=== PATIENT | female | born 1950 | race Caucasian/White ===

== ENCOUNTER 2016-08-02 16:57 | Emergency (ER) | payer MEDICARE, MEDICAID ==
[~2016-08-02] VITALS: Ht 165.1 cm; Wt 90.7 kg
[2016-08-02 17:20] LABS: URINE BILIRUBIN - DIPSTICK NEGATIVE (NEG); URINE BLOOD TRACE-INTACT (NEG)
--- NOTE | 2016-08-02 17:38 | Emergency Room Report ---
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 N Clinical Suspician of Infection? N Mental Status: 1 - Regular (Normal Baseline) Sepsis Risk:Low Sepsis Risk Have you (or family members/close friends) recently traveled outside the [place]? N If Yes, where/when: Have you had exposure to infectious disease within the past month? N TB? Other? Specify: Patient had fasting bloodwork today ordered by [facility] in [place] and received a call today that her sodium was low and to go to the closest ER. She has chronic fatigue but no v/d and no acute weakness. She has IDDM and ate today after her blood was drawn. No complaints currently. ALLERGIES Coded Allergies: atorvastatin (From LIPITOR) (Mild, ACHEY 08/02/16) History Medical History General CAD? No Angina: No RI: No Hypertension? Yes Hyperlipidemia? Yes CHF? No DVT? No PE? No COPD? No Asthma? No Anemia? No GERD? No Gastric ulcers? No GI Bleed? No Hernia? No Thyroid Problems? No Hypothyroidism? No CVA? No Seizures? No Diabetes? Yes Insulin Dependent: No Insulin Pump: No Home FSBS? Yes Renal Insuffiency? No End Stage Renal Disease? No UTI? No Stones? No BPH? No GB Disease: No Nephritic Syndrome? No Asplenia? No Hepatitis? No Sickle Cell Disease? No Arthritis? No Migraines? No Cataracts? No Glaucoma? No MRSA? No HIV? No TB? No Anxiety? No Depression? No Cancer? No More? No Immunization Hx DT/Tetanus 1-4 Years Ago Surgical Hx Previous Surgery?Y TUBAL Social History Smoking Hx Smoker: Never Smoker Tobacco: No Alcohol Alcohol: No Review of Systems All Other Systems Reviewed and Negative Psychiatric/Neurological denies no symptoms reported Physical Exam Vital Signs Vital Signs Date Time Temp Pulse Resp B/P Pulse O2 O2 Flow FiO2 Ox Delivery Rate 08/02 1702 98.6 78 16 163/85 98 General Appearance normal appearance, WD/WN, no apparent distress Eye Exam - bilateral eye normal exam, bilateral eye PERRL, bilateral eye EOMI Neck normal inspection, non-tender, supple, full range of motion Respiratory Status Yes: trachea midline, chest symmetrical, non tender chest. No: respiratory distress, tender on palpation, use of accessory muscles, pain on inspiration, pain on expiration, productive cough, non productive cough. Lung Sounds bilateral: normal breath sounds, lungs clear. Cardiovascular normal exam, regular rate/rhythm, no peripheral edema, no gallop, no JVD, no murmur, no rub, normal peripheral pulses Gastrointestinal normal bowel sounds, normal exam, non tender, soft, no organomegaly, no pulsatile mass, no guarding, no rebound Extremities no pedal edema Neurologic alert, normal exam, no motor/sensory deficits, oriented x 3 (no tremor speech clear) Skin intact, normal color, warm/dry Medical Decision Making LABS/Meds/Orders Pt receiving controlled substance in ED? No Results/Orders Laboratory Tests 08/02/16 1730: Sodium 142, Potassium 3.7, Chloride 105, Carbon Dioxide 24, BUN 32 H, Creatinine 1.5 H, Estimated Creat Clear 53, Estimated GFR (MDRD) 35 L, Glucose 135 H, Calcium 8.9, Total Bilirubin 0.3, AST 20, ALT 41, Alkaline Phosphatase 76, Total Protein 6.7, Albumin 3.3 L, Globulin 3.4 H, Albumin/Globulin Ratio 1.0 L, WBC 16.4 H, RBC 4.50, Hgb 13.6, Hct 41.7, MCV 92.6, RDW 14.0, Plt Count 160, MPV 7.5, Gran % 24.7 L, Gran # 4.1, Total Counted Pending, Lymphocytes % 70.6 H, Monocytes % 2.6, Eosinophils % 1.6, Basophils % 0.5, Neutrophils Pending, Lymphocytes (Manual) Pending, Lymphocytes # 11.6 H, Monocytes # 0.4, Eosinophils # 0.3, Basophils # 0.1, Platelet Estimate Pending, PUBS MCHC 32.7, MCH 30.3 08/02/16 1715: Urine Color YELLOW, Urine Appearance SL CLOUDY, Urine pH 6.0, Ur Specific [place] 1.020, Urine Protein 2+ H, Urine Ketones NEGATIVE, Urine Blood TRACE- INTACT, Urine Nitrate NEGATIVE, Urine Bilirubin NEGATIVE, Urine Urobilinogen 0.2 , Ur Leukocyte Esterase TRACE H, Urine RBC OCC, Urine WBC 5-10, Ur Squamous Epith Cells 5-10, Urine Bacteria 2+, Hyaline Casts 3-5, Urine Glucose NEGATIVE Current Medication Orders Sig/Goyo Start time Last Medication Dose Route Stop Time Status Admin Sodium Chloride 10 ML PRN PRN 08/02 171 AC IV 08/03 171 Orders Procedure Date/time Status ELECTROCARDIOGRAM REQUEST 08/02 1746 Active DIFFERENTIAL-WBC 08/02 1730 Active CULTURE, URINE 08/02 171 Active IV SALINE LOCK 08/02 171 Active URINALYSIS/COMPLETE 08/03 1711 Complete CBC WITH AUTO DIFF 08/03 1711 Active CHEM 12 PROFILE 08/03 1711 Complete Progress ED Progress Notes Date 08/02/16 Time 1836 Comment Na level normal, 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 No intervention indicated at this time. Departure Departure Time of Disposition 1836 Disposition DC Home or Self Care(routine) Clinical Impression Primary Impression: History of chronic kidney disease Condition STABLE Referrals KIP JAVIER (Family) Additional Instructions See [facility] or Dr. Javier for any follow up. Sodium 142 at our lab. (normal) Discharge Counseling Counseled pt/family regarding diagnosis, test results, home care, follow up needs ED Critical Care Critical Care No at 1839
--- OUTSIDE RECORDS SUMMARY | 2016-08-02 17:53 | External Medical Summary Rpt ---
Author Author , Organization [employer] Address Unknown Phone Unavailable Care Team Providers Care Marine Designer Name Role Phone MICHAEL EVANS MICHAEL Unavailable Unavailable MICHAEL FARMER Unavailable Unavailable KIP FLORES, Unavailable Unavailable KIP RODRIGUEZ J, Unavailable Unavailable Akira NGUYEN [facility], Unavailable Unavailable [facility], Unavailable Unavailable [facility] Unavailable Unavailable MEDICAL GROUP, [facility] BEITING CLA, BEITING Unavailable Unavailable CLA [employer] [facility], Unavailable Unavailable INC, [employer], Unavailable Unavailable INC, [employer] [facility] Unavailable Unavailable [facility], [facility] Unavailable Unavailable [facility], [facility] Unavailable [facility]available [facility], [facility] RUPALI LUCITA, RUPALI Unavailable Unavailable LUCITA ALEX SHA, ALEX Unavailable Unavailable SHA [facility], Unavailable Unavailable [facility] IOANA SHANTA, Unavailable Unavailable IOANA SHANTA DEGNORE LIS, DEGNORE Unavailable Unavailable LIS LATANYA RAMIREZ JASBIR Unavailable Unavailable JACKELYN JAM, JACKELYN Unavailable Unavailable JAM JACKELYN JAM, JACKELYN Unavailable Unavailable JAM JACKELYN AND MICHAEL, Unavailable Unavailable PSC, [facility], PSC ESTEBANW THO, Unavailable Unavailable ESTEBANW KOBI ORANTES, Unavailable Unavailable KOBI MILAN ITALIA RHO, ITALIA Unavailable Unavailable RHO [facility] Unavailable Unavailable INC, [facility] EVA SYE, EVA Unavailable Unavailable SYE ORTIZ JASBIR ORTIZ Unavailable Unavailable JASBIR NEWMAN III EDISON, Unavailable Unavailable PATY III EDISON [facility] Unavailable Unavailable [facility], [facility] Unavailable Unavailable & HAND, [facility] Unavailable Unavailable & HAND, [facility] Unavailable Unavailable ASSOCIAT, [facility] MINNIE FLYNN, Unavailable Unavailable MINNIE FLYNN KIELAR Unavailable Unavailable GERALDO ANG ESTRELLA, Unavailable Unavailable ANG ESTRELLA STEVE, KOCHU, Unavailable Unavailable [facility], Unavailable Unavailable [facility], Unavailable Unavailable [facility] & Unavailable Unavailable [facility]ICAL SUPP, [facility] & Unavailable Unavailable [facility]ICAL [facility]PP, [facility] Unavailable Unavailable LABORATO, [facility] Unavailable Unavailable LABORATO, [facility] Unavailable Unavailable LABORATORY, [facility] Unavailable Unavailable [facility], [facility] Unavailable Unavailable [facility] [employer] [facility] MATCHESBHARATA PITA, Unavailable Unavailable [facility]WALA [facility] Unavailable Unavailable OF [place], [facility] Unavailable Unavailable PSC, [facility] P[facility] Unavailable Unavailable PSC, [facility]SC [facility] Unavailable Unavailable INCORPORAT, [facility] Unavailable Unavailable INCORPORAT, [facility] HOLLINS, HOLLINS Unavailable Unavailable HOLLINS LISSETTE, HOLLINS Unavailable Unavailable LISSETTE [id number], Unavailable Unavailable [id number] SPRAGUE, SPRAGUE Unavailable Unavailable SPRAGUE AGUSTINA, SPRAGUE Unavailable Unavailable AGUSTINA [facility] Unavailable Unavailable PENG, [facility] PENG [facility] Unavailable Unavailable CLINIC P, [facility] P WAESPE GERALDO, WAESPE Unavailable Unavailable GERALDO [facility] Unavailable Unavailable #493, [facility] Unavailable Unavailable #493, [facility] Unavailable [facility]available #591, [facility] Unavailable Unavailable #591, [facility] Unavailable Unavailable INC, [facility] Unavailable Unavailable INC, [facility] JUNI MAT, JUNI MAT Unavailable Unavailable Purpose Continuity of Care Document - 02-24-2007 through 2016 Problems Code Diagnosis DOS Provider Status E1021 TYPE 1 05-27-2016 [facility] DIABETES PURCHASE MELLITUS CLINIC P W/DIABETIC NEPHROPATHY E1022 TYPE 1 05-27-2016 [facility] DIABETES PURCHASE MELLITUS CLINIC P W/DIAB CHRON KIDNEY DZ E1039 TYPE 1 DIAB 05-27-2016 THE NEW MELLITUS PURCHASE W/OTH DIAB CLINIC P OPHTHALMIC COMP E1065 TYPE 1 05-27-2016 THE NEW DIABETES PURCHASE MELLITUS CLINIC P WITH HYPERGLYCEM IA E669 OBESITY 05-27-2016 THE NEW UNSPECIFIED [facility] P E785 HYPERLIPIDE 05-27-2016 THE NEW PHYLLIS PURCHASE UNSPECIFIED CLINIC P I10 ESSENTIAL 05-27-2016 THE NEW PRIMARY PURCHASE HYPERTENSIO CLINIC P N R809 PROTEINURIA 05-25-2016 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 [place] WITHOUT COMPLICATIO NS N189 CHRONIC 05-10-2016 [facility] DISEASE OF [place] UNSPECIFIED E109 TYPE 1 05-05-2016 [facility] DI[facility]ETES & MELLITUS MEDICAL WITHOUT SUPP COMPLICATIO NS E10.21 TYPE 1 04-27-2016 DIABETES MELLITUS WITH DIABETIC NEPHROPATHY E10.39 TYPE 1 04-27-2016 DIABETES MELLITUS WITH OTHER DIABETIC OPHTHALMIC COMPLICATIO N E78.5 HYPERLIPIDE 04-27-2016 PHYLLIS, UNSPECIFIED I12.9 HYPERTENSIV 04-27-2016 E CHRONIC KIDNEY DISEASE WITH STAGE 1 THROUGH STAGE 4 CHRONIC KIDNEY DISEASE, OR UNSPECIFIED CHRONIC KIDNEY DISEASE N18.9 CHRONIC 04-27-2016 KIDNEY DISEASE, UNSPECIFIED R80.9 PROTEINURIA 04-26-2016 , UNSPECIFIED I129 HYPERTENSIV 04-26-2016 [facility] CKD [facility] W/STAGE 1-4 HOSPITAL CKD OR UNS CKD N3001 ACUTE 02-10-2016 JACKELYN AND CYSTITIS MICHAEL, WITH PSC HEMATURIA R350 FREQUENCY 02-10-2016 JACKELYN AND OF MICHAEL, MICTURITION PSC J0140 ACUTE 01-21-2016 [facility] S MEDICAL UNSPECIFIED GROUP E1040 TYPE 1 01-01-2016 THE NEW DIABETES PURCHASE MELLITUS CLINIC P W/DIAB NEUROPATHY UNS Z23 ENCOUNTER 12-04-2015 [facility] IMMUN[facility]591 N J069 ACUTE UPPER 11-10-2015 JACKELYN AND MICHAEL, RESPIRATORY PSC INFECTION UNSPECIFIED J302 OTHER 11-10-2015 JACKELYN AND SEASONAL MICHAEL, ALLERGIC PSC RHINITIS N390 URINARY 10-21-2015 [facility] INFECTION INCORPORAT SITE NOT SPECIFIED E1340 OTHER SPEC 10-17-2015 [facility] W/DIABETIC INC NEUROPATHY UNSPECIFIED D519 VITAMIN B12 09-29-2015 [facility] UNSPECIFIED E1142 TYPE 2 09-29-2015 MOBILE DIABETES [facility] 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[facility] W/DIAB POLYNEUROPA THY E1042 TYPE 1 04-30-2015 THE NEW DIABETES PURCHASE MELLITUS CLINIC P W/DIAB POLYNEUROPA THY N183 CHRONIC 02-10-2015 [facility] DISEASE OF [place] STAGE 3 MODERATE O11820 OTHER 11-25-2014 [facility] [place] TENOSYNOVIT IS RT ANKLE & FOOT 84001 TENOSYNOVIT 11-13-2014 [facility] IS OF FOOT BRACING, AND ANKLE INC 36198 PLANTAR 11-13-2014 [place] [facility] FIBROMATOSI ASSOCIAT S 4011 ESSENTIAL 11-11-2014 JACKELYN AND HYPERTPRESTON RODRIGUEZ, N, BENIGN PSC 19364 PAIN IN 11-11-2014 [facility] [place] [facility], RADIOLOGY ANKLE AND FOOT 7242 LUMBAGO 11-11-2014 IVELISSE, PSC 7295 PAIN IN 11-11-2014 [facility] SOFT [facility] TISSUES OF LIMB 59383 SWELLING OF 11-11-2014 [facility] [place] LIMB [facility] 7840 HEADACHE 11-11-2014 IVELISSE, PSC 9597 INJURY 11-11-2014 JACKELYN AND OTHER&UNSPE MICHAEL, CIFIED KNEE PSC LEG ANKLE&FOOT 86044 DIAB 11-06-2014 JACKELYN AND W/RENAL MICHAEL, MANIFESTS PSC TYPE I [JUV TYPE] UNCNTRL 5990 URINARY 11-06-2014 JACKELYN AND TRACT MICHAEL, INFECTION PSC SITE NOT SPECIFIED 58300 DIAB 10-24-2014 THE NEW W/RENAL PURCHASE MANIFESTS CLINIC P TYPE I [JUV] NOT UNCNTRL 91692 DIAB 10-24-2014 THE NEW W/OPHTH PURCHASE MANIFESTS CLINIC P TYPE I [JUV] NOT UNCNTRL 65251 BACKGROUND 10-24-2014 THE NEW DIABETIC PURCHASE RETINOPATHY CLINIC P 5853 CHRONIC 10-24-2014 THE NEW KIDNEY PURCHASE DISEASE CLINIC P STAGE III (MODERATE) 4019 UNSPECIFIED 10-07-2014 [facility] HYPERTENSIO OF [place] N 7910 PROTEINURIA 10-07-2014 [facility] [place] 41970 DIAB W/O 09-30-2014 [facility] COMP TYPE I MEDICAL [JUV] NOT STATED UNCNTRL 04581 HTN CKD UNS 09-30-2014 MOBILE W/CKD [facility] STAGE I HOSPITAL THRU STAGE IV/UNS 5859 CHRONIC 09-30-2014 MOBI[facility] KIDNEY [facility] DISEASE HOSPITAL UNSPECIFIED 52796 DIAB W/O 09-17-2014 [facility] COMP TYPE [facility] II/UNS NOT INC STATED UNCNTRL 99278 DIAB 07-11-2014 THE NEW W/NEURO PURCHASE MANIFESTS CLINIC P TYPE I [JUV TYPE] UNCNTRL 3572 POLYNEUROPA 07-11-2014 THE NEW THY IN PURCHASE DIABETES CLINIC P 05597 NEPHRITIS&N 07-11-2014 THE NEW EPHROPATHY- PURCHASE [place] [address] MIGRAINE 05-27-2014 NEPHROLOGY UNSP W/O ASSOCIATES INTRACT W/O OF [place] STATUS MIGRAINOSUS 5849 ACUTE 05-27-2014 [facility] FAILURE OF [place] UNSPECIFIED 81358 DIAB W/O 04-24-2014 [facility] COMP TYPE I HOSPITAL [JUV TYPE] UNCNTRL 2724 OTHER AND 04-24-2014 [facility] HYPERLIPIDE PHYLLSI 69887 DIAB 03-13-2014 THE NEW W/OPHTH PURCHASE MANIFESTS CLINIC P TYPE I [JUV TYPE] UNCNTRL 55424 NUCLEAR 10-12-2013 [facility] 3674 PRESBYOPIA 10-12-2013 [facility] 66679 APHAKIA 10-12-2013 [facility] 91381 DIAB W/O 08-13-2013 PURCHASE MENTION CLINIC COMP TYPE [facility]OR[facility] II/UNS TYPE UNCNTRL 3669 UNSPECIFIED 08-02-2013 [facility] CATARACT [facility] PENG V5867 LONG-TERM 08-02-2013 [facility] USE OF [facility] INSULIN PENG 36887 DIAB 06-01-2013 NEW W/OPHTH PURCHASE MANIFESTS CLINIC PSC TYPE II/UNS NOT UNCNTRL 72634 NONPROLIFER 06-01-2013 [facility] ATIVE PURCHASE DIABETIC CLINIC [place]SC [place]INOP[place]Y [place]OS 66921 POSTERIOR 06-01-2013 [facility] SUBCAPSULAR PURCHASE POLAR CLINIC PSC SENILE CATARACT 56283 DERMATOCHAL 06-01-2013 [facility] ASIS [facility] PSC 24299 DIAB 11-15-2012 [place] W/NEURO ORTHOPAEDIC MANIFESTS & HAND TYPE II/UNS NOT UNCNTRL 3558 UNSPECIFIED 11-15-2012 [facility] MONONEURITI & HAND S OF LOWER LIMB 7135 ARTHROPATHY 11-15-2012 [place] ASSOC[facility]ATED [facility]OPAEDIC & HAND W/NEUROLOGI NETO DISORDERS V5883 ENCOUNTER 09-25-2012 [facility] DRUG MONITORING 7823 EDEMA 09-20-2012 [place] [place] [facility] HAND 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 2469 UNSPECIFIED 05-24-2012 [facility]3] DISORDER [facility] 34099 NEPHROTIC 01-27-2012 [facility] SYND W/OTH PURCHASE PATHAL LES CLINIC PSC DZ CLASS ELSW 93057 GEN 01-24-2012 JACKELYN JAM OSTEOARTHRO SIS INVOLVING MULTIPLE SITES 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 6259 UNSPEC 07-05-2011 [facility] SYMPTOM PURCHASE ASSOC CLINIC PSC W/FEMALE GENITAL ORGANS V7231 ROUTINE 06-23-2011 [facility] GYNECOLOGIC PURCHASE AL CLINIC PSC EXAMINATION V762 SCREENING 06-23-2011 [facility] MALIGNANT [facility] NEOPLASM OF THE CERVIX V7612 OTHER 05-04-2011 [place] SCREENING [facility]ICAL MAMMOGRAM IMAGING ASS 3670 HYPERMETROP 04-23-2011 [facility] IA [facility] PSC 4619 ACUTE 04-16-2011 MICHAEL NATHAN SINUSITIS, UNSPECIFIED 45146 URINARY 12-10-2010 MICHAEL NATHAN FREQUENCY 462 ACUTE 09-23-2010 MICHAEL NATHAN PHARYNGITIS 4659 ACUTE URIS 09-23-2010 MICHAEL NATHAN OF UNSPECIFIED SITE 2134 BENIGN 02-16-2010 [facility] [place] [facility] SCAPUL[place] G BONES UPPER LIMB 67937 CORTICAL 10-03-2009 [facility] SENILE PURCHASE CATARACT CLINIC PSC 49993 CALCANEAL 01-13-2009 [facility] [place] [facility] 5999 UNSPECIFIED 05-01-2007 MICHAEL, DISORDER KIP L OF URETHRA&URI NARY TRACT 96863 DIAB 02-27-2007 [facility]/NEURO PURCHASE MANIFESTS CLINIC PSC TYPE I [JUV] NOT UNCNTRL Allergies, Adverse Reactions, Alerts Clinical Alert Notifications Alert Diabetes: no eye exam in the last 365 days Immunization Name Date Route CVX Reacti Commen Provid Is Given on t er Refuse d IIV [facility] No VACCIN 2016 RT E PHARMA PRESER CY V FREE #591 INCREA SED AG CONTEN T IM PCV13 [facility] No VACCIN 2016 RT E FOR PHARMA INTRAM CY USCULA #591 R USE Procedures Procedure DOS Code Location Performer Comment GLUC BLD 13243 [facility] [place] GLUC MNTR 7 PURCHASE DEV CLINIC P CLEARED FDA SPEC HOME USE HEMOGLOBI 30920 THE NEW CELESTINE N 7 PURCHASE GLYCOSYLA CLINIC P SHAMAR A1C BASIC 21280 [facility] METABOLIC 7 [facility] CALCIUM TOTAL COLLECTIO 43694 [facility] V[facility] 7 [facility] VENIPUNCT URE BLD GLU A4253 CORONEL CORONEL TEST/REAG 7 DIABETES DIABETES T STRIPS & MEDICAL & MEDICAL HOME BLD SUPP SUPP GLU MON-50 LANCETS A4259 [facility] PER BOX 7 DIABETES DIABETES OF 100 & MEDICAL & MEDICAL SUPP SUPP ALBUMIN 57331 [facility] URINE 7 [facility] [place] [address] [facility] PHOSPHORU 7 [facility] INORGANIC URNLS DIP [address] HOSPITAL LET REAGENT AUTO MICROSCOP Y COLLECTIO 06970 [facility] N VENOUS 7 [facility] VENIPUNCT URE COMPREHEN 92075 [facility] SIVE [address] [place] [address] PANEL CREATININ 78350 [facility] E OTHER 7 [facility] [place] [address] [facility] FREE 7 [facility] [address] [facility] THYROID 7 [facility] NG HORMONE TSH LIPID 37253 [facility] PANEL 7 [facility] CULTURE 33438 [facility] BACTERIAL 7 [facility] QUANTTATI VE COLONY COUNT URINE BLD GLU A4253 CORONEL DAISETTA TEST/REAG 6 DIABETES DIABETES T STRIPS & MEDICAL & MEDICAL HOME BLD SUPP SUPP GLU MON-50 NORMAL A4256 CORONEL CORONEL LOW AND 6 DIABETES DIABETES HIGH & MEDICAL & MEDICAL CALIBRATO SUPP SUPP R SOLUTION/ CHIPS LANCETS A4259 CORONEL DAISETTA PER BOX 6 DIABETES DIABETES OF 100 & MEDICAL & MEDICAL SUPP SUPP HOME E0607 [facility] BLOOD 6 DIABETES DIABETES GLUCOSE & MEDICAL & MEDICAL MONITOR SUPP SUPP URNLS DIP 22366 JACKELYNJOVANI RODRIGUEZ 6 AND NATHAN STICK/RACHEL RODRIGUEZ, LET RGNT PSC NON-AUTO W/O MICRSCP IIV 42204 [facility] VACCINE 6 [facility]AC[facility] PHARMACY PRESERV #591 #591 FREE INCREASED AG CONTENT IM ADMINISTR G0009 [facility] ATION OF 6 [facility]ARMAC[facility] PNEUMOCOC #591 #591 NETO VACCINE PCV13 51395 [facility] VACCINE 6 [facility]ACY PHARMACY FOR #591 #591 INTRAMUSC ULAR USE ADMINISTR G0008 [facility] ATION OF 6 [facility]ACY PHARMACY INFLUENZA #591 #591 VIRUS VACCINE REPL JESSE A4235 [facility] LITHIUM 6 MEDICAL MEDICAL MED NECES JOANN BG MON OWN PT EA SPRING-PO A4258 [facility] WERED 6 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 FOR LANCET EACH BLD GLU A4253 [facility] TEST/REAG 6 MEDICAL MEDICAL T STRIPS HOME BLD GLU MON-50 NORMAL A4256 [facility] LOW AND 6 MEDICAL MEDICAL HIGH CALIBRATO R SOLUTION/ CHIPS LANCETS A4259 [facility] PER BOX 6 MEDICAL MEDICAL OF 100 CULTURE 98673 [facility] BCT 6 DIAGNOSTI DIAGNOSTI ISOL&PRSM CS CS PTV ID INCORPORA INCORPORA ISOLATE T T EA URINE CULTURE 48540 [facility] BACTERIAL 6 DIAGNOSTI DIAGNOSTI CS CS QUANTTATI INCORPORA INCORPORA VE COLONY T T COUNT URINE DIAB ONLY A5500 [facility] FIT CSTM 6 [facility] PREP&SPL INC INC SHOE MX DNSITY INSRT FOR DIAB A5512 [facility] ONLY MX 6 [facility] DNSITY INC INC INSRT DIR FORMD PRFAB EA CYANOCOBA 14064 [facility] JOSE [address] [place] [address] COLLECTIO 29687 [facility] VENOUS 6 [facility] VENIPUNCT URE CREATININ 92885 [facility] E OTHER 6 [facility] [place] [address] [facility] FREE [address] [place] [address] [place] [address] [facility] THYROID 6 [facility] [place] [address] [facility] PHOSPHORU 6 [facility] INORGANIC ELECTROLY 65809 [facility] TE PANEL 6 [facility] LIPID 13875 [facility] PANEL 6 [facility] HEPATIC 21295 [facility] FUNCTION 6 [facility] PROTEIN 46703 [facility] TOTAL 6 [facility] REFRACTOM ETRY URINE BLD GLU A4253 [facility] TEST/REAG 6 MEDICAL MEDICAL T STRIPS HOME BLD GLU MON-50 NORMAL A4256 [facility] LOW AND 6 MEDICAL MEDICAL HIGH CALIBRATO R SOLUTION/ CHIPS LANCETS A4259 [facility] PER BOX 6 MEDICAL MEDICAL OF 100 BLD GLU A4253 [facility] TEST/REAG 6 MEDICAL MEDICAL T STRIPS HOME BLD GLU MON-50 NORMAL A4256 [facility] LOW AND 6 MEDICAL MEDICAL HIGH CALIBRATO R SOLUTION/ CHIPS LANCETS A4259 [facility] PER BOX 6 MEDICAL MEDICAL OF 100 NORMAL A4256 [facility] LOW AND 6 MEDICAL MEDICAL HIGH CALIBRATO R SOLUTION/ CHIPS LANCETS A4259 [facility] PER BOX 6 MEDICAL MEDICAL OF 100 BLD GLU A4253 [facility] TEST/REAG 6 MEDICAL MEDICAL T STRIPS HOME BLD GLU MON-50 LIPID 45901 [facility] 6 [facility] COLLECTIO 19404 [facility] N VENOUS 6 [facility] VENIPUNCT URE COMPREHEN 37016 [facility] SIVE 6 [facility] PANEL CREATININ 06905 [facility] E OTHER 6 [facility] [place] [place] [address] MO[facility] FREE 6 [place] [address] [facility] THYROID 6 [facility] [place] [address] [facility] URINE 6 [facility] ALBUMIN 52209 [facility] UR[facility] 5 [facility] MIN QUANTIATI VE COLLECTIO 68465 [facility] N VENOUS 5 [facility] VENIPUNCT URE RENAL 09438 [facility] FUNCTION 5 [facility] URNLS DIP [address] LET REAGENT AUTO MICROSCOP Y BLD GLU A4253 [facility] TEST/REAG 5 MEDICAL MEDICAL T STRIPS HOME BLD GLU MON-50 NORMAL A4256 [facility] LOW AND 5 MEDICAL MEDICAL HIGH CALIBRATO R SOLUTION/ [facility]IPS LANCETS A4259 [facility] PER BOX 5 MEDICAL MEDICAL OF 100 REPL JESSE A4235 [facility] LITHIUM 5 MEDICAL MEDICAL MED NECES JOANN BG MON OWN PT EA SPRING-PO A4258 [facility] WERED 5 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 FOR LANCET EACH WALKING L4360 [facility] 5 BRACING, BRACING, PNEUMATC INC INC &/ VACUUM PREFAB CUSTM FIT RADEX 67267 [facility] [place] ITALIA ANKLE 5 RADIOLOGY RHO COMPLETE MINIMUM 3 VIEWS RADEX 51758 [facility] [place] ITAL[place] FOOT 5 RADIOLOGY RHO COMPLETE MINIMUM 3 VIEWS GLUC BLD 21996 JACKELYN RODRIGUEZ GLUC MNTR 5 AND NATHAN RODRIGUEZ, CLEARED PSC FDA SPEC HOME USE ALBUMIN 48599 [facility] URINE 5 [facility] MIN QUANTIATI VE URNLS DIP [address] LET REAGENT AUTO MICROSCOP Y BLOOD 96771 [facility] COUNT 5 [facility] AUTO&AUTO DIFRNTL WBC RENAL 11073 [facility] FUNCTION 5 [facility] BLD GLU A4253 [facility] TEST/REAG 5 MEDICAL MEDICAL T STRIPS HOME BLD GLU MON-50 NORMAL A4256 [facility] LOW AND 5 MEDICAL MEDICAL HIGH CALIBRATO R SOLUTION/ CHIPS LANCETS A4259 [facility] PER BOX 5 MEDICAL MEDICAL OF 100 FOR DIAB A5512 [facility] YATES ONLY MX 5 [facility] DNSITY INC INC INSRT DIR FORMD PRFAB EA DIAB ONLY A5500 YATESAMANDA VAUGHANAKER FIT CSTM 5 [facility] PREP&SPL INC INC SHOE MX DNSITY INSRT LANCETS A4259 [facility] PER BOX 5 MEDICAL MEDICAL OF 100 NORMAL A4256 [facility] LOW AND 5 MEDICAL MEDICAL HIGH CALIBRATO R SOLUTION/ CHIPS BLD GLU A4253 [facility] TEST/REAG 5 MEDICAL MEDICAL T STRIPS HOME BLD GLU MON-50 CREATININ 16345 [facility] E OTHER 5 [facility] COLLECTIO 16002 [facility] N VENOUS 5 [facility] VENIPUNCT URE CULTURE 71248 [facility] BACTERIAL 5 [facility] QUANTTATI VE COLONY COUNT URINE PROTEIN 76198 [facility] TUTTLE TOTAL 5 [facility] REFRACTOM ETRY URINE URNLS DIP 71746 PARAG TUTTLE 5 [facility] LET REAGENT AUTO MICROSCOP Y RENAL 64870 PARAG TUTTLE FUNCTION 5 [facility] DUP-SCAN 80128 NEPHROLOG GURVINDER ARTL LEEROY 5 Y [place] ABDL/PEL/ ASSOCIATE SCROT&/[place] [address] NEPHROLOG GURVINDER RETROPERI 5 Y [place] TONEAL ASSOCIATE REAL TIME S OF KAREN W/IMAGE COMPLETE BLOOD 36510 PARGA TUTTLE COUNT 5 [facility] SMEAR [facility] MCRSCP W/MNL DIFRNTL WBC COUNT PROTEIN 72038 [facility] TOTAL 5 [facility] XCPT [facility] REFRACTOM ETRY URINE URNLS DIP [address] [facility] HOSPITAL LET REAGENT AUTO MICROSCOP Y BLOOD 15308 [facility]3] COUNT 5 [facility] AUTOMATED RENAL 26223 [facility] FUNCTION 5 [facility] CREATININ 55528 [facility]LE [facility]3] E OTHER 5 [facility] COLLECTIO 97935 [facility] N VENOUS 5 [facility] [place] [address] [facility] THYROID 5 [facility] [place] [address] [facility] FREE 5 [facility] THYROXINE [facility] CREATININ 20739 [facility] OTHER 5 [facility] COMPREHEN 28133 [facility] SIVE 5 [facility] METABOLIC [facility] PANEL COLLECTIO 37087 [facility] N VENOUS 5 [facility] VENIPUNCT URE LIPID 46061 [facility] PANEL [address] [place] [address] ALBUMIN 20079 [facility] URINE 5 [facility] MIN QUANTIATI VE SPRING-PO A4258 ARRIVA ARRIVA WERED 5 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 FOR LANCET EACH REPL JESSE A4235 ARRIVA ARRIVA LITHIUM 5 MEDICAL MEDICAL MED NECES JOANN BG MON OWN PT EA NORMAL A4256 ARRIVA ARRIVA LOW AND 5 MEDICAL MEDICAL HIGH CALIBRATO R SOLUTION/ CHIPS BLD GLU A4253 ARRIVA ARRIVA TEST/REAG 5 MEDICAL MEDICAL T STRIPS HOME BLD GLU MON-50 LANCETS A4259 ARRIVA ARRIVA PER BOX 5 MEDICAL MEDICAL OF 100 LANCETS A4259 ARRIVA ARRIVA PER BOX 4 [facility]ICAL MEDICAL OF 100 NORMAL A4256 ARRIVA ARRIVA LOW AND 4 MEDICAL MEDICAL HIGH CALIBRATO R SOLUTION/ CHIPS BLD GLU A4253 ARRIVA ARRIVA TEST/REAG 4 MEDICAL MEDICAL T STRIPS HOME BLD GLU MON-50 LANCETS A4259 ARRIVA ARRIVA PER BOX 4 MEDICAL MEDICAL OF 100 SPRING-PO A4258 ARRIVA ARRIVA WERED 4 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 FOR LANCET EACH REPL JESSE A4235 ARRIV[facility] ARRIVA LITHIUM 4 MEDICAL MEDICAL MED NECES JOANN BG MON OWN PT EA BLD GLU A4253 [facility]IV[facility] TEST/REAG 4 MEDICAL MEDICAL T STRIPS HOME BLD GLU MON-50 NORMAL A4256 ARRIVA ARRIVA LOW AND 4 MEDICAL MEDICAL HIGH CALIBRATO R SOLUTION/ CHIPS PROGRESSI V2781 [facility] VE LENS 4 [facility]ARMACY PHARMACY PER LENS #493 #493 FRAMES V2020 [facility] PURCHASES 4 PHARMACY PHARMACY #493 #493 SPHERE V2200 [facility] BIFOCL 4 PHARMACY PHARMACY PLANO TO #493 #493 PLUS/JACOB S 4.00D PER LENS BIFOCL V2203 [facility] PLANO +/- 4 PHARMACY PHARMACY 4.00D #493 #493 SPHER 0.12-2.00 D CYL-EA DIAB ONLY A5500 YATES YATES FIT CSTM 4 [facility] PREP&SPL INC INC SHOE MX DNSITY INSRT FOR DIAB A5512 YATES YATES ONLY MX 4 [facility] DNSITY INC INC INSRT DIR FORMD PRFAB EA HEMOGLOBI 28295 [place] N 4 [facility] SHAMAR A1C PSC GLUC BLD 26009 [place] GLUC MNTR 4 [facility] DEV CLINIC CLEARED [facility] FDA SPEC HOME USE BLOOD 88624 [facility] COUNT 4 CLINIC CLINIC COMPLETE [place] [address] [facility] THYROID 4 CLINIC CLINIC STIMULATI LABORAT[place] [address] [facility] FREE 4 CLINIC CLINIC THYROXINE LABORATO LABORATO COLLECTIO 96506 [facility] N VENOUS 4 CLINIC CLINIC BLOOD LABORATO LABORATO VENIPUNCT URE PROTEIN 88609 [facility] TOTAL 4 [facility] REFRACTOM ETRY URINE LIPID 58164 [facility] PANEL 4 [facility] CREATININ 66244 [facility] E OTHER 4 [facility] COMPREHEN 78249 [facility] SIVE 4 [facility] PANEL COLLECTIO 78495 [facility] N VENOUS 4 [facility] VENIPUNCT URE INJECTION J2[address] [place] MIDAZOLAM PENG PENG HCL PER 1 MG CATARACT 62505 [facility] REMOVAL [address] [place] [address] [place] INSERTION PENG PENG OF LENS INJECTION J01[address] ADRENALIN PENG PENG EPINEPHRI NE 0.1 MG ANESTHESI 14814 FREDERICK ORTIZ A EYE 4 LTH JASBIR LENS ANESTHESI SURGERY A PSC INJECTION J2001 [place] [address] [place] LIDOCAINE PENG PENG HCL INTRAVENO US INFUS 10 MG POSTERIOR V2632 [facility] CHAMBER 4 [place] INTRAOCUL PENG PENG AR LENS OPH BMTRY 86864 ANUSHA PELAEZ [facility] US 4 EYE ECHOGRAPY INSTITUTE A-SCAN IO LENS PWR NETO NORMAL A4256 ARRIVA ARRIVA LOW AND 4 MEDICAL MEDICAL HIGH CALIBRATO R SOLUTION/ CHIPS LANCETS A4259 ARRIVA ARRIVA PER BOX 4 MEDICAL MEDICAL OF 100 BLD GLU A4253 ARRIVA ARRIVA TEST/REAG 4 MEDICAL MEDICAL T STRIPS HOME BLD GLU MON-50 ANESTHESI 59760 FREDERICK ORTIZ A EYE 4 LTH JASBIR LENS ANESTHESI SURGERY A PSC INJECTION J01[address] [place] ADRENALIN PENG PENG EPINEPHRI NE 0.1 MG INJECTION J2001 [address] [place] LIDOCAINE PENG PENG HCL INTRAVENO US INFUS 10 MG POSTERIOR V2632 [facility] CHAMBER [address] [facility] INTRAOCUL PENG PENG AR LENS INJECTION J2250 [facility] [address] [facility] MIDAZOLAM PENG PENG HCL PER 1 MG CATARACT 55298 ANUSHA PELAEZ JASBIR REMOVAL 4 EYE INSERTION INSTITUTE OF LENS OPH BMTRY 99565 ANUSHA PELAEZ JASBIR US 4 EYE ECHOGRAPY INSTITUTE A-SCAN IO LENS PWR NETO OPH BMTRY 13315 [place] US 4 [facility] ECHOGRAPY CLINIC A-SCAN PSC IO LENS PWR NETO DETERMINA 27040 [place] TION 4 [facility] REFRACTIV CLINIC E STATE PSC OPHTH 20931 [facility] MEDICAL 4 [facility] XM&EVAL CLINIC COMPRHNSV PSC ESTAB PT 1/> REPL JESSE A4235 ARRIVA ARRIVA LITHIUM 4 MEDICAL MEDICAL MED NECES JOANN BG MON OWN PT EA SPRING-PO A4258 ARRIVA ARRIVA WERED 4 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 SHAMAR A1C PSC GLUC BLD 97918 [facility] GLUC MNTR 3 [facility] DEV CLINIC CLEARED PSC FDA SPEC HOME USE NORMAL A4256 ARRIVA ARRIVA LOW AND 3 MEDICAL MEDICAL HIGH CALIBRATO R SOLUTION/ CHIPS BLD GLU A4253 ARRIVA ARRIVA TEST/REAG 3 MEDICAL MEDICAL T STRIPS HOME BLD GLU MON-50 LANCETS A4259 ARRIVA ARRIVA PER BOX 3 MEDICAL MEDICAL OF 100 FOR DIAB A5512 TRUDY YATES ONLY MX 3 [facility] DNSITY INC INC INSRT DIR FORMD PRFAB EA DIAB ONLY A5500 YATES YATES FIT CSTM 3 [facility] PREP&SPL INC INC SHOE MX DNSITY INSRT RADIOLOGI 26979 [place] DEGNORE C 3 ORTHOPAED LIS EXAMINATI IC & HAND ON FOOT 2 VIEWS LANCETS A4259 ARRIVA ARRIVA PER BOX 3 MEDICAL MEDICAL OF 100 BLD GLU A4253 ARRIVA ARRIVA TEST/REAG 3 MEDICAL MEDICAL T STRIPS HOME BLD GLU MON-50 BLD GLU A4253 [facility] TEST/REAG 3 PHARM PHARM T STRIPS #3914 #3914 HOME BLD GLU MON-50 COLLECTIO 25285 [facility] N VENOUS 3 CLINIC CLINIC BLOOD LABORATO LABORATO VENIPUNCT URE GLUC BLD 71317 [place] GLUC MNTR 3 PURCHASE TH DEV CLINIC CLEARED PSC FDA SPEC HOME USE HEMOGLOBI 79385 [place] N 3 [facility] GLYCOSYLA CLINIC SHAMAR A1C PSC BASIC 67812 [facility] METABOLIC 3 CLINIC CLINIC PANEL LABORATO LABORATO CALCIUM TOTAL TRANSFERA 31070 [facility] SE 3 [facility] AMINO ALT SGPT COLLECTIO 05406 [facility] N VENOUS 3 [facility] VENIPUNCT URE LIPID 46582 [facility] PANEL 3 [facility] RADIOLOGI 55594 [place] DEGNORE C 3 ORTHOPAED LIS EXAMINATI IC & HAND ON FOOT 2 VIEWS FOR DIAB A5513 THE THE ONLY MX 3 [facility]ALTH[facility] HEALTHY DNSITY FOOT FOOT INSRT CENTER CENTER CSTM MOLD CSTM EA [place]-PO A4258 [facility] WERED 3 [facility] DEVICE E LLC E LLC FOR LANCET EACH HOME E0607 [facility] BLOOD 3 [facility] GLUCOSE E LLC E LLC MONITOR LANCETS A4259 [facility] PER BOX 3 [facility] OF 100 E LLC E LLC BLD GLU A4253 [facility] TEST/REAG 3 [facility] HEALTHCAR T STRIPS E LLC E LLC HOME BLD GLU MON-50 WALKING L4386 [facility] BOOT 3 ORTHOPAED ORTHOPAED NON-PNEUM IC & HAND IC & HAND ATIC PREFAB CUSTOM FIT RADIOLOGI 21467 [place] DEGNORE C 3 ORTHOPAED LIS EXAMINATI IC & HAND ON FOOT 2 VIEWS MRI LOWER 34421 [facility] [place] PATY EXTREM 3 RADIOLOGY III EDISON OTH/THN JT W/O CONTR MATRL RADEX 25652 [facility] [place] JUNI MAT FOOT 3 RADIOLOGY COMPLETE MINIMUM 3 VIEWS GONADOTRO 62197 [facility] PIN 3 CLINIC CLINIC FOLLICLE LABORATO LABORATO STIMULATI NG HORMONE PROTEIN 97359 [facility] TOTAL 3 CLINIC CLINIC XCPT LABORATO LABORATO REFRACTOM ETRY URINE LIPID 65539 [facility] PANEL 3 CLINIC CLINIC LABORATO LABORATO COLLECTIO 64603 [facility] N VENOUS 3 CLINIC CLINIC BLOOD [place]OR[place] [address] [facility] FREE 3 CLINIC CLINIC THYROXINE LABORATO LABORATO CREATININ 23822 [facility] E OTHER 3 CLINIC CLINIC SOURCE LABORATO LABORATO LIPID 71579 [facility] 3 [facility] [address] [facility] THYROID 3 [facility] NG HORMONE TSH CREATININ 22960 [facility] E OTHER 3 [facility] COMPREHEN 93859 [facility] SIVE 3 [facility] PANEL COLLECTIO 89063 [facility] N VENOUS 3 [facility] VENIPUNCT URE PROTEIN 98301 [facility] TOTAL 3 [facility] REFRA[facility] ETRY URINE LANCETS A4259 [facility] PER BOX 3 MEDICAL MEDICAL OF 100 SUPPLY SUPPLY INC. INC. BLD GLU A4253 [facility] TEST/REAG 3 MEDICAL MEDICAL T STRIPS SUPPLY SUPPLY HOME BLD INC. INC. 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 INC. LANCET EACH BLD GLU A4253 [facility] TEST/REAG 2 MEDICAL MEDICAL T STRIPS SUPPLY SUPPLY HOME BLD INC. INC. GLU MON-50 BLD GLU A4253 [facility] TEST/REAG 2 MEDICAL MEDICAL T STRIPS SUPPLY SUPPLY HOME BLD INC. INC. GLU MON-50 LANCETS A4259 [facility]ERTY PER BOX 2 MEDICAL MEDICAL OF 100 SUPPLY SUPPLY INC. INC. CREATINE 63810 [facility] KINASE 2 [facility] HEPATIC 90482 [facility] FUNCTION 2 [facility] LIPID 66238 [facility] PANEL [address] [place] [address] LIPID 06324 [facility] PANEL [address] [place] [address] COMPREHEN 21236 [facility] SIVE 2 [facility] PANEL COLLECTIO 91299 [facility] N VENOUS 2 [facility] VENIPUNCT URE NORMAL A4256 [facility] LOW AND 2 MEDICAL MEDICAL HIGH SUPPLY SUPPLY CALIBRATO INC. INC. R SOLUTION/ CHIPS LANCETS A4259 [facility] LIBERTY PER BOX 2 MEDICAL MEDICAL OF 100 SUPPLY SUPPLY INC. INC. BLD GLU A4253 [facility] TEST/REAG 2 MEDICAL MEDICAL T STRIPS SUPPLY SUPPLY HOME BLD INC. INC. GLU MON-50 REPL JESSE A4235 [facility] LITHIUM 2 MEDICAL MEDICAL MED NECES SUPPLY SUPPLY JOANN 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 2 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 SUPPLY FOR LANCET EACH BLD GLU A4253 [facility] TEST/REAG 2 MEDICAL MEDICAL T STRIPS SUPPLY SUPPLY HOME BLD GLU MON-50 COMPUTER- 32469 [place] IOANA AIDED 2 MEDICAL SHANTA DETECTION IMAGING ASS SCREENING MAMMOGRAP HY SCREENING G0202 [facility] 2 MEDICAL MEDICAL MAMMOGRAP IMAGING IMAGING HY MORENO ASS ASS INCL CAD WHEN PERFORMD OPHTH 90413 [facility] [place] MEDICAL 2 [facility] XM&EVAL CLINIC COMPRHNSV PSC ESTAB PT 1/> DETERMINA 53419 [facility] TI 2 [facility] REFRACTIV CLINIC E STATE PSC INJECTION J0696 MICHAEL RODRIGUEZ 2 NATHAN [place] NE SODIUM PER [address] [place] [address] [facility] THYROID 2 [facility] NG HORMONE TSH COMPREHEN 57586 [facility] SIVE 2 [facility] PANEL COLLECTIO 03495 [facility] N VENOUS 2 [facility] VENIPUNCT URE LIPID 32062 [facility] PANEL [address] [place] [address] BLD GLU A4253 [facility] TEST/REAG 2 MEDICAL MEDICAL T STRIPS SUPPLY SUPPLY HOME BLD GLU MON-50 CREATININ 19726 [facility] E OTHER 2 CLINIC CLINIC SOURCE LABORATO LABORATO URNLS DIP 63334 [facility] 2 CLINIC CLINIC STICK/TAB LABORATO LABORATO LET REAGENT AUTO MICROSCOP Y PROTEIN 10249 [facility] TOTAL 2 CLINIC CLINIC XCPT LABORATO LABORATO REFRACTOM ETRY URINE URNLS DIP 00879 MICHAEL RODRIGUEZ 1 NATHAN NATHAN STICK/TAB LET RGNT NON-AUTO W/O MICRSCP BLD GLU A4253 [facility] TEST/REAG 1 MEDICAL MEDICAL T STRIPS SUPPLY SUPPLY HOME BLD GLU MON-50 OPHTH 62343 [facility] 1 [facility] XM&EVAL CLINIC COMPRHNSV PSC ESTAB PT 1/> BLD GLU A4253 [facility] TEST/REAG 1 MEDICAL MEDICAL T STRIPS SUPPLY SUPPLY HOME BLD GLU MON-50 NORMAL A4256 [facility] LOW AND 1 MEDICAL MEDICAL HIGH SUPPLY SUPPLY CALIBRATO R SOLUTION/ CHIPS LANCETS A4259 [facility] PER BOX 1 MEDICAL MEDICAL OF 100 SUPPLY SUPPLY REPL JESSE A4235 [facility] LITHIUM 1 MEDICAL MEDICAL MED NECES SUPPLY SUPPLY JOANN BG MON OWN PT EA NORMAL A4256 [facility] LOW AND 1 MEDICAL MEDICAL HIGH SUPPLY SUPPLY CALIBRATO R SOLUTION/ CHIPS BLD GLU A4253 [facility] TEST/REAG 1 MEDICAL MEDICAL T STRIPS SUPPLY SUPPLY HOME BLD GLU MON-50 OPHTH 48664 [facility] 1 [facility]&EVAL CLINIC COMPRHNSV PSC ESTAB PT 1/> LANCETS A4259 [facility] PER BOX 1 [facility] MEDICAL OF 100 SUPPLY SUPPLY BLD GLU A4253 [facility] TEST/REAG 1 MEDICAL MEDICAL T STRIPS SUPPLY SUPPLY HOME BLD GLU MON-50 [place] [address] [facility] SURG 1 [facility] INC PATHOLOGY GROSS&QUITA ROSCOPIC EXAM SCREENING G0202 DAVID HERNANDEZ 0 [facility] MAMMOGRAP INC INC HY MORENO INCL CAD WHEN PERFORMD COMPUTER- 68734 DAVID HERNANDEZ AIDED 0 [facility] DETECTION INC INC SCREENING MAMMOGRAP HY LANCETS A4259 [facility] PER BOX 0 MEDICAL MEDICAL OF 100 SUPPLY SUPPLY BLD GLU A4253 [facility] TEST/REAG 0 MEDICAL MEDICAL T STRIPS SUPPLY SUPPLY HOME BLD GLU MON-50 PROTEIN 89008 [place] TOTAL 0 CLINIC CLINIC XCPT LABORATO LABORATO REFRACTOM ETRY URINE HEMOGLOBI 72095 [place] N 0 PURCHASE THO GLYCOSYLA CLINIC SHAMAR A1C PSC GLUC BLD 80057 [place] GLUC MNTR 0 PURCHASE THO DEV CLINIC CLEARED [facility] FDA SPEC HOME USE CREATININ 48306 [facility] E OTHER 0 CLINIC CLINIC SOURCE LABORATO LABORATO LIPID 43626 [facility] 0 [facility] [address] [facility] THYROID 0 [facility] NG HORMONE TSH COMPREHEN 45853 [facility] SIVE 0 [facility] PANEL COLLECTIO 25294 [facility] N VENOUS 0 [facility] VENIPUNCT URE OPHTH 79133 [facility] [place] [facility]ICAL 0 PURCHASE GERALDO XM&EVAL CLINIC COMPRHNSV PSC ESTAB PT 1/> LANCETS A4259 [facility] PER BOX 0 MEDICAL MEDICAL OF 100 SUPPLY SUPPLY BLD GLU A4253 [facility] TEST/REAG 0 MEDICAL MEDICAL T STRIPS SUPPLY SUPPLY HOME BLD GLU MON-50 GLUC BLD 79157 [place], GLUC MNTR 0 PURCHASE [facility] CLEARED PSC FDA SPEC HOME USE HEMOGLOBI 61582 [place], N 0 PURCHASE [place]YCOSYLA CLINIC SHAMAR A1C PSC LIPID 14197 [facility] PANEL 0 [facility] COMPREHEN 09387 [facility] SIVE 0 [facility] PANEL COLLECTIO 50727 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 SIVE 0 [facility] PANEL COLLECTIO 07715 [facility] N VENOUS 0 [facility] VENIPUNCT URE OPHTH 34694 [place] SANCHEZ 0 PURCHASE ANG Gradne XM&EVAL CLINIC COMPRHNSV PSC ESTAB PT 1/> LANCETS A4259 [facility] PER BOX 0 MEDICAL MEDICAL OF 100 SUPPLY SUPPLY BLD GLU A4253 [facility] TEST/REAG 0 MEDICAL MEDICAL T STRIPS SUPPLY SUPPLY HOME BLD GLU MON-50 RADEX 15123 [facility] [place], FOOT 9 RADIOLOGY J COMPLETE MINIMUM 3 VIEWS COLLECTIO 73209 [facility] N VENOUS 9 [facility] VENIPUNCT URE LIPID 32322 [facility] PANEL 9 [facility] HEPATIC 51743 [facility] FUNCTION 9 [facility] BLD GLU A4253 [facility] TEST/REAG 9 MEDICAL MEDICAL T STRIPS SUPPLY SUPPLY HOME BLD GLU MON-50 LANCETS A4259 [facility] PER BOX 9 MEDICAL MEDICAL OF 100 SUPPLY SUPPLY NORMAL A4256 [facility] LOW AND 9 MEDICAL MEDICAL HIGH SUPPLY SUPPLY CALIBRATO R SOLUTION/ CHIPS LIPID 21339 [facility] PANEL 9 CLINIC CLINIC LABORATOR LABORATOR Y Y HEMOGLOBI 21655 MARLENI MILAN N 9 [facility] SHAMAR A1C PSC GLUC BLD 14123 MARLENI MILAN, GLUC MNTR 9 [facility] DEV CLINIC CLEARED [facility] [place] [address] [facility] TH[facility]RO[facility] 9 CLINIC CLINIC STIMULATI LABORATOR LABORATOR NG Y Y HORMONE TSH COLLECTIO 36115 [facility] N VENOUS 9 CLINIC CLINIC BLOOD LABORATOR LABORATOR VENIPUNCT Y Y URE CREATININ 28635 [facility] E OTHER 9 CLINIC CLINIC SOURCE LABORATOR LABORATOR Y Y COMPREHEN 53945 [facility] SIVE 9 CLINIC CLINIC METABOLIC LABORATOR LABORATOR PANEL Y Y PROTEIN 05677 [facility] TOTAL 9 CLINIC CLINIC XCPT LABORATOR LABORATOR REFRACTOM Y Y ETRY URINE BLD GLU A4253 [facility] TEST/REAG 9 MEDICAL MEDICAL T STRIPS SUPPLY SUPPLY HOME BLD GLU MON-50 COMPREHEN 77176 [facility] SIVE 9 CLINIC CLINIC METABOLIC LABORATOR LABORATOR PANEL Y Y COLLECTIO 48521 [facility] N VENOUS 9 CLINIC CLINIC BLOOD LABORATOR LABORATOR VENIPUNCT Y Y URE BILIRUBIN 30652 [facility] DIRECT 9 CLINIC CLINIC LABORATOR LABORATOR Y Y COLLECTIO 45365 [facility] N VENOUS 9 CLINIC CLINIC BLOOD LABORATOR LABORATOR VENIPUNCT Y Y URE COMPREHEN 73062 [facility] SIVE 9 CLINIC CLINIC METABOLIC LABORATOR LABORATOR PANEL Y Y LIPID 29725 [facility] PANEL 9 CLINIC CLINIC LABORATOR LABORATOR Y Y FUNDUS 65893 MARLENI ESTRELLA PHOTOBIA 9 [facility] W/INTERPR [facility] ETATION & REPORT COMPUTER- 99476 DAVID HERNANDEZ AIDED 8 [facility] DETECTION INC INC SCREENING MAMMOGRAP HY SCREENING 30847 DAVID HERNANDEZ 8 [facility] MAMMOGRAP INC INC HY BILATERAL COLLECTIO 43209 [facility]IN[facility] CLIN[facility] BLOOD LABORATOR LABORATOR VENIPUNCT Y Y URE BASIC 27855 [facility] METABOLIC 8 CLINIC CLINIC PANEL LABORATOR LABORATOR CALCIUM Y Y TOTAL BLD GLU A4253 [facility] TEST/REAG 8 MEDICAL MEDICAL T STRIPS SUPPLY SUPPLY HOME BLD GLU MON-50 BLD GLU A4253 [facility] TEST/REAG 8 MEDICAL MEDICAL T STRIPS SUPPLY SUPPLY HOME BLD GLU MON-50 SPRING-PO A4258 [facility] WERED 8 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 SUPPLY FOR LANCET EACH LANCETS A4259 [facility] PER BOX 8 MEDICAL MEDICAL OF 100 SUPPLY SUPPLY NORMAL A4256 [facility] LOW AND 8 MEDICAL MEDICAL HIGH SUPPLY SUPPLY CALIBRATO R SOLUTION/ CHIPS LANCETS A4259 [facility] PER BOX 8 MEDICAL MEDICAL OF 100 SUPPLY SUPPLY BLD GLU A4253 [facility] TEST/REAG 8 MEDICAL MEDICAL T STRIPS SUPPLY SUPPLY HOME BLD GLU MON-50 Encounters Encounter Start End Date Code Location Performer Type Date OFFICE 51639 [facility] 7 PURCHASE T VISIT CLINIC P 40 MINUTES [facility] [address] [facility] T OFFICE 90894 NE[facility] 7 Y T VISIT ASSOCIATE 25 S OF KAREN MINUTES [facility] [address] [facility] T OFFICE 35786 JACKELYN MICHAEL OUTPATIEN 6 6 AND NATHAN T VISIT MICHAEL, 10 PSC MINUTES OFFICE 29695 YAZIDI [facility] OUTPATI 6 6 [facility]ALTH [facility] T VISIT MEDICAL 15 GROUP MINUTES OFFICE [id number] [facility] OUTPATIEN 6 6 [place] [facility] T [facility] CLIN[facility] P 40 MINUTES OFFICE 49830 JACKELYN MICHAEL OUTPATIEN 6 6 AND NATHAN T VISIT MICHAEL, 15 PSC MINUTES OFFICE 22923 JACKELYN MICHAEL OUTPATIEN 6 6 AND NATHAN T VISIT MICHAEL, 10 PSC MINUTES OFFICE 63929 NEPHROLOG HOLLINS OUTPATIEN 6 6 Y LISSETTE T VISIT ASSOCIATE 25 S OF KAREN MINUTES [facility] - [address] [facility] T OFFICE [id number] [facility] [place] [facility] 6 6 [facility] P 40 MINUT[facility] OFFICE [id number] [facility] 6 6 [facility] P 40 MINUTES [facility] [place] [facility] [address] [facility] T OFFICE 92836 NEPHROLOG RUPALI OUTPATIEN 5 5 Y LUCITA T VISIT ASSOCIATE 25 S OF KAREN MINUTES [facility] [place] [facility] [address] [facility] OFF[facility] 40364 [facility] 5 ORTHOPEDI GERALDO T NEW 30 C MINUTES [facility] 00617 [facility] ORTHOPEDI GERALDO T NEW 30 C MINUTES ASSOCIAT OFFICE 84309 JACKELYN MICHAEL OUTPATIEN 5 5 AND NATHAN T VISIT MICHAEL, 25 PSC MINUTES [facility] [address] [facility] T OFFICE 67924 JACKELYN MICHAEL OUTPATIEN 5 5 AND NATHAN T VISIT MICHAEL, 15 PSC MINUTES OFFICE 19433 [facility] [place] [facility] P 40 MINUTES OFFICE 63705 NEPHROLOG VEA OUTPATIEN 5 5 Y SYE T VISIT ASSOCIATE 25 S OF KAREN MINUTES [facility] [place] [facility] [address] [facility] T OFFICE 11378 [facility] [place] OUT[facility]IEN 5 5 [place] [facility] T VISIT CLINIC P 40 MINUTES OFFICE 40877 NEPHROLOG EVA OUTPATIEN 5 5 Y SYE T VISIT ASSOCIATE 25 S OF KAREN [facility] [place] - [address] [facility] T OFFICE 40464 NEPHROLOG HOLLINS OUTPATIEN 5 5 Y LISSETTE T NEW 60 ASSOCIATE MINUTES S OF [facility] [place] - 5 5 [facility] [place] - [address] [facility] T OFF[facility] 09425 [facility] OUTPATIEN 5 5 [facility] T VISIT CLINIC P 40 MINUTES OFFICE 90081 [facility] OUTPATIEN 4 4 [facility] T VIS[facility] CLINIC 25 PSC MINUTES HOSPITAL [facility] OTHER 4 4 [facility] - 4 4 [facility] - 4 4 [facility] T OFFICE 73434 [facility] OUTPATIEN 4 4 [facility] MINUT[facility] OFFICE 21459 [facility] 3 PURCHASE THO T VISIT CLINIC 25 PSC MINUTES OFFICE 62701 [place] [facility] OUT[facility] 3 3 ORTHOPAED LIS T VISIT IC & HAND 15 MINUTES OFFICE 79467 [facility] OUTPAT[facility]EN 3 3 [facility] T VISIT CLINIC 25 PSC MINUTES [facility] [place] [facility] [address] [facility] T OFFICE 99672 [place] [facility] OUT[facility] 3 3 ORTHOPAED LIS T VISIT IC & HAND 15 MINUTES [facility] [place] [facility] [address] [facility] T OFF[facility] 01487 MICHAEL [facility]HA[facility] 3 3 NATHAN NATHAN T VISIT 25 MINUTES [facility] [place] - 3 3 [facility] [place] - [address] [facility] T OFFICE [id number] [facility] OUTPATIEN 2 2 ELOISE DURANT T VISIT CLINIC 25 PSC MINUTES OFFICE [id number] JACKELYN HAYDEN OUTPATIEN 2 2 ELIAZAR PEREA T VISIT 15 MINUTES [facility] [place] 2 2 [facility] [place] [facility] [address] [facility] T OFF[facility] 72079 [place] [facility] 2 3 ORTHOPAED LIS T [facility] IC & HAND MINUTES [facility] 2 2 [facility] [place] T OFFICE 98090 [facility] 2 NATHAN NATHAN T VISIT 15 MINUTES [facility] [place] [facility] [address] [facility] T OFFICE [id number] MICHAEL MICHAEL OUTPATIEN 1 1 NATHAN NATHAN T VISIT 15 MINUTES OFFICE 23523 MICHAEL MICHAEL OUTPATIEN 1 1 NATHAN NATHAN T VISIT 10 MINUTES [facility]OSP[facility] - 0 0 [facility] T OFFICE 79994 [facility] EMERGENC[facility] 0 0 [facility] T VISIT CLINIC 25 PSC MINUTES [facility] [place] [facility] [address] [facility] T OFF[facility] 84757 [facility] 0 0 ELOISE MONZON T [facility]ISIT CLINIC 25 PSC MINUTES [facility] [place] [facility] [address] [facility] T OFF[facility] 45665 [facility] 0 0 ELOISE Champion T VISIT CLINIC 25 PSC MINUTES [facility] [place] [facility] [address] [facility] T OFF[facility] 25552 [facility] 9 9 ELOISE Champion T VISIT CLINIC 25 PSC MINUTES [facility] [place] [facility] [address] [facility] T OFF[facility] 22780 ARMAND BAIRES 9 9 ELOISE Champion T VISIT CLINIC 25 PSC MINUTES OFFICE 63810 MARLEN[facility]IAM [facility] 9 [facility] 15 PSC MINUTES OFFICE 16978 [facility] 9 ELOISE Champion T [facility]IS[facility]IC 25 PSC MINUTES OFFICE 81161 [facility] 15 PSC MINUTES [facility] DAV[facility] - 8 8 [facility] T OFF[facility] 70761 [facility] 8 8 KIP Isaac T VISIT 10 MINUTES OFFICE 29134 [facility] 8 8 ELOISE ELOISE T VISIT CLINIC CLINIC 25 PSC PSC MINUTES OFFICE 13749 [facility] 8 MINNIE HARTMAN T VISIT M M 10 MINUTES
--- OUTSIDE RECORDS SUMMARY | 2016-08-02 17:53 | External Medical Summary Rpt ---
Author Author , Organization [employer] Address Unknown Phone Unavailable Care Team Providers Care Clinical Document Improvement Educator Name Role Phone MICHAEL EVANS MICHAEL Unavailable Unavailable MICHAEL FARMER Unavailable Unavailable KIP FLORES, Unavailable Unavailable KIP RODRIGUEZ J, Unavailable Unavailable Akira NGUYEN [facility], Unavailable Unavailable [facility], Unavailable Unavailable [facility] Unavailable Unavailable [facility] GROUP, [facility] BEITING CLA, BEITING Unavailable Unavailable CLA [employer], Unavailable Unavailable INC, [employer], Unavailable Unavailable INC, [employer] [facility] Unavailable Unavailable [facility], [facility] Unavailable [facility]available [facility], [facility] Unavailable [facility]available [facility], [facility] RUPALI LUCITA, RUPALI Unavailable Unavailable LUCITA ALEX [...] III EDISON, Unavailable Unavailable PATY III EDISON [facility] Unavailable Unavailable [facility], [facility] Unavailable Unavailable & HAND, [facility] Unavailable Unavailable & HAND, [facility] Unavailable Unavailable ASSOCIAT, [facility] MINNIE FLYNN, Unavailable Unavailable MINNIE FLYNN KIELAR Unavailable Unavailable GERALDO ANG ESTRELLA, Unavailable Unavailable ANG ESTRELLA STEVE, KOCHU, Unavailable Unavailable NICOLÁS [facility], Unavailable Unavailable [facility], Unavailable Unavailable [facility] & Unavailable Unavailable MEDICAL SUPP, [facility] & Unavailable Unavailable MEDICAL SUPP, [facility] Unavailable Unavailable LABORATO, [facility] Unavailable Unavailable LABORATO, [facility] Unavailable Unavailable LABORATORY, [facility] Unavailable Unavailable [facility], [facility] Unavailable Unavailable [facility] MATCHESBHARATA PITA, Unavailable Unavailable [facility] Unavailable Unavailable OF [place], [facility] Unavailable Unavailable PSC, [facility] Unavailable Unavailable PSC, [facility] Unavailable Unavailable INCORPORAT, [facility] Unavailable Unavailable INCORPORAT, [facility] HOLLINS, HOLLINS Unavailable Unavailable HOLLINS LISSETTE, HOLLINS Unavailable Unavailable LISSETTE [id number], Unavailable Unavailable [id number] SPRAGUE, SPRAGUE Unavailable Unavailable SPRAGUE AGUSTINA, SPRAGUE Unavailable Unavailable AGUSTINA [facility] Unavailable [facility]available PENG, [facility] Un[facility] Unavailable [facility]available CLINIC P, [facility] P WAESPE GERALDO, WAESPE Unavailable Unavailable [...] Provider Status E1021 TYPE 1 05-27-2016 [facility] DIABETES [facility] P W/DIABETIC NEPHROPATHY E1022 TYPE 1 05-27-2016 [facility] DI[facility]ETES [facility] P W/DIAB CHRON KIDNEY DZ E1039 TYPE 1 DIAB 05-27-2016 THE NEW MELLITUS [place] W/OTH DIAB CLINIC P OPHTHALMIC COMP E1065 TYPE 1 05-27-2016 THE NEW DIABETES [place] P [place]YCEM [place] E669 OBESITY 05-27-2016 [facility] E785 HYPERLIPIDE 05-27-2016 THE NEW PHYLLIS [place] UNSPECIFIED CLINIC P I10 ESSENTIAL 05-27-2016 THE NEW PRIMARY [place] HYPERTENSIO CLINIC P N R809 PROTEINURIA 05-25-2016 [facility]119 TYPE 2 05-10-2016 NEPHROLOGY DIABETES [...] PROTEINURIA 04-26-2016 , UNSPECIFIED I129 HYPERTENSIV 04-26-2016 [facility] CKD [facility] W/STAGE 1-4 HOSPITAL CKD OR UNS CKD N3001 ACUTE 02-10-2016 JACKELYN AND CYSTITIS MICHAEL, WITH PSC HEMATURIA R350 FREQUENCY 02-10-2016 JACKELYN AND OF MICHAEL, MICTURITION PSC J0140 ACUTE 01-21-2016 [facility] MEDICAL UNSPECIFIED GROUP E1040 TYPE 1 01-01-2016 THE NEW DIABETES [facility] P W/DIAB NEUROPATHY UNS Z23 [...] [facility] UNSPECIFIED E1142 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 THY E1042 TYPE 1 04-30-2015 THE NEW DIABETES [facility] P W/DIAB POLYNEUROPA THY N183 CHRONIC 02-10-2015 [facility] DISEASE OF [place] STAGE 3 MODERATE Z48422 OTHER 11-25-2014 [facility] TENOSYNOVIT IS RT ANKLE & FOOT 63714 TENOSYNOVIT 11-13-2014 [facility] IS OF FOOT BRACING, AND ANKLE INC 01521 PLANTAR 11-13-2014 [place] [facility] FIBROMATOSI ASSOCIAT S 4011 ESSENTIAL 11-11-2014 JACKELYN AND HYPERTPRESTON RODRIGUEZ, N, BENIGN PSC 68946 PAIN IN 11-11-2014 [facility] [place] JOINT, RADIOLOGY ANKLE AND FOOT 7242 LUMBAGO 11-11-2014 IVELISSE, PSC 7295 PAIN IN 11-11-2014 [facility] [place] SOFT RADIOLOGY TISSUES OF LIMB 66026 SWELLING OF 11-11-2014 [facility] [place] LIMB RADIOLOGY 7840 HEADACHE 11-11-2014 IVELISSE, PSC 9597 INJURY 11-11-2014 JACKELYN AND OTHER&UNSPE MICHAEL, CIFIED KNEE PSC LEG ANKLE&FOOT 98726 DIAB 11-06-2014 JACKELYN AND W/RENAL MICHAEL, MANIFESTS PSC TYPE I [JUV TYPE] UNCNTRL 5990 URINARY 11-06-2014 JACKELYN AND TRACT MICHAEL, INFECTION PSC SITE NOT SPECIFIED 47379 DIAB 10-24-2014 THE NEW W/RENAL [place] MANIFESTS CLINIC P TYPE I [JUV] NOT UNCNTRL 20637 DIAB 10-24-2014 THE NEW W/OPHTH [place] MANIFESTS CLINIC P TYPE I [JUV] NOT UNCNTRL 65595 BACKGROUND 10-24-2014 THE NEW DIABETIC [place] RETINOPATHY CLINIC P 5853 CHRONIC 10-24-2014 THE NEW KIDNEY [facility] DISEASE CLINIC P STAGE III (MODERATE) 4019 UNSPECIFIED 10-07-2014 [facility] HYPERTENSIO OF [place] N 7910 PROTEINURIA 10-07-2014 [facility] [place] 29779 DIAB W/O 09-30-2014 [facility] COMP TYPE I MEDICAL [JUV] NOT STATED UNCNTRL 88260 HTN CKD UNS 09-30-2014 SCITUATE W/CKD [facility] STAGE I HOSPITAL THRU STAGE IV/UNS 5859 CHRONIC 09-30-2014 S[facility] KIDNEY [facility] DISEASE HOSPITAL UNSPECIFIED 26340 DIAB W/O 09-17-2014 [facility] COMP TYPE [facility] II/UNS NOT INC STATED UNCNTRL 76051 DIAB 07-11-2014 THE NEW W/NEURO [facility] MANIFESTS CLINIC P TYPE I [JUV TYPE] UNCNTRL 3572 POLYNEUROPA 07-11-2014 THE NEW THY IN [facility] DIABETES CLINIC P 62845 NEPHRITIS&N 07-11-2014 THE NEW EPHROPATHY- [place] [address] MIGRAINE 05-27-2014 NEPHROLOGY UNSP W/O ASSOCIATES INTRACT W/O OF [place] STATUS MIGRAINOSUS 5849 ACUTE 05-27-2014 [facility] FAILURE OF [place] UNSPECIFIED 18708 DIAB W/O 04-24-2014 [facility] COMP TYPE I HOSPITAL [JUV TYPE] UNCNTRL 2724 OTHER AND 04-24-2014 [facility] HYPERLIPIDE PHYLLIS 31354 DIAB 03-13-2014 THE NEW W/OPHTH [facility] MANIFESTS CLINIC P TYPE I [JUV TYPE] UNCNTRL 45251 NUCLEAR 10-12-2013 [facility] 3674 PRESBYOPIA 10-12-2013 [facility] 95749 APHAKIA 10-12-2013 [facility] 64896 DIAB W/O 08-13-2013 [facility] COMP TYPE LABOR[facility] II/UNS TYPE UNCNTRL 3669 UNSPECIFIED 08-02-2013 [facility] CATARACT [facility] PENG V5867 LONG-TERM 08-02-2013 [facility] USE OF [facility] INSULIN PENG 25564 DIAB 06-01-2013 NEW W/OPHTH [place] MANIFESTS CLINIC PSC TYPE II/UNS NOT UNCNTRL 98999 NONPROLIFER 06-01-2013 [facility] ATIVE [place] DIABETIC CLINIC [place]INOP[place]Y [place] 76716 POSTERIOR 06-01-2013 [facility] SUBCAPSULAR [place] POLAR CLINIC PSC SENILE CATARACT 24549 DERMATOCHAL 06-01-2013 [facility] ASIS [facility] PSC 20333 DIAB 11-15-2012 [place] W/NEURO ORTHOPAEDIC MANIFESTS & HAND TYPE II/UNS NOT UNCNTRL 3558 UNSPECIFIED 11-15-2012 [facility] MONONEURITI & HAND S OF LOWER LIMB 7135 ARTHROPATHY 11-15-2012 [place] [facility] & HAND W/NEUROLOGI NETO DISORDERS V5883 ENCOUNTER 09-25-2012 [facility] DRUG MONITORING 7823 EDEMA 09-20-2012 [facility] 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 6259 UNSPEC 07-05-2011 [facility] SYMPTOM [facility] PSC W/FEMALE GENITAL ORGANS V7231 ROUTINE 06-23-2011 [facility] GYNECOLOGIC [facility] AL [facility]IC PSC EXAMINATION V762 SCREENING 06-23-2011 [facility] MALIGNANT LABORATO NEOPLASM OF THE CERVIX V7612 OTHER 05-04-2011 [place] SCREENING MEDICAL MAMMOGRAM IMAGING ASS 3670 HYPERMETROP 04-23-2011 [facility] IA [facility] PSC 4619 ACUTE 04-16-2011 MICHAEL NATHAN SINUSITIS, UNSPECIFIED 98795 URINARY 12-10-2010 MICHAEL NATAHN FREQUENCY 462 ACUTE 09-23-2010 MICHAEL NATHAN PHARYNGITIS 4659 ACUTE URIS 09-23-2010 MICHAEL NATHAN OF UNSPECIFIED SITE 2134 BENIGN 02-16-2010 [facility] [place] [facility] SCAPUL[place] G BONES UPPER LIMB 86645 CORTICAL 10-03-2009 [facility] SENILE [place] CATARACT CLINIC PSC 13850 CALCANEAL 01-13-2009 [facility] [place] SPUR RADIOLOGY 5999 UNSPECIFIED 05-01-2007 MICHAEL, DISORDER KIP L OF URETHRA&URI NARY TRACT 88142 DIAB 02-27-2007 [facility]/NEURO [place] MANIFESTS CLINIC PSC TYPE I [JUV] NOT [...] DOS Code Location Performer Comment GLUC BLD 79782 THE [facility] [place] GLUC MNTR 7 [place] DEV [facility]INIC P CLEARED FDA SPEC HOME USE HEMOGLOBI 99627 THE NEW CELETSINE N 7 [facility] GLYCOSYLA CLINIC P SHAMAR A1C BASIC 31977 [facility] METABOLIC 7 [facility] CALCIUM TOTAL COLLECTIO 90920 [facility] VENOUS 7 [facility] VENIPUNCT URE BLD GLU A4253 CORONEL CORONEL TEST/REAG 7 DIABETES DIABETES T STRIPS & MEDICAL & MEDICAL HOME BLD SUPP SUPP GLU MON-50 LANCETS A4259 [facility] PER BOX 7 DIABETES DIABETES OF 100 & MEDICAL & MEDICAL SUPP SUPP ALBUMIN 08436 [facility] URINE 7 [facility] [place] [address] [facility] PHOSPHORU 7 [facility] INORGANIC URNLS DIP [address]/[facility] H[facility]PITAL LET REAGENT AUTO MICROSCOP Y COLLECTIO 26626 [facility] N VENOUS 7 [facility] VENIPUNCT URE COMPREHEN 24631 [facility] SIVE [address] [place] [address] PANEL CREATININ 44482 [facility] E OTHER 7 [facility] [place] [address] [facility] FREE 7 [facility] [place] [address] [facility] THYROID 7 [facility] NG HORMONE TSH LIPID 67327 [facility] PANEL 7 [facility] CULTURE 38981 [facility] BACTERIAL 7 [facility] QUANTTATI VE COLONY COUNT URINE BLD GLU A4253 CORONEL DOLPHIN TEST/REAG 6 DIABETES DIABETES T STRIPS & MEDICAL & MEDICAL HOME BLD SUPP SUPP GLU MON-50 NORMAL A4256 CORONEL CORONEL LOW AND 6 DIABETES DIABETES HIGH & MEDICAL & MEDICAL CALIBRATO SUPP SUPP R SOLUTION/ CHIPS LANCETS A4259 CORONEL DOLPHIN PER BOX 6 DIABETES DIABETES OF 100 & MEDICAL & MEDICAL SUPP SUPP HOME E0607 [facility] BLOOD 6 DIABETES DIABETES GLUCOSE & MEDICAL & MEDICAL MONITOR SUPP SUPP URNLS DIP 59840 JACKELYNJOVANI RODRIGUEZ 6 AND NATHAN STICK/RACHEL RODRIGUEZ, LET RGNT PSC NON-AUTO W/O MICRSCP IIV 99089 [facility] VACCINE 6 PHARMACY PHARMACY PRESERV #591 #591 FREE INCREASED AG CONTENT IM ADMINISTR G0009 [facility] ATION OF 6 [facility]ARMACY PHARMACY PNEUMOCOC #591 #591 NETO VACCINE PCV13 95616 [facility] VACCINE 6 [facility]ACY PHARMACY FOR #591 #591 INTRAMUSC ULAR USE ADMINISTR G0008 [facility] ATION OF 6 PHARMACY PHARMACY INFLUENZA #591 #591 VIRUS VACCINE REPL JESSE A4235 [facility] LITHIUM 6 MEDICAL MEDICAL MED NECES JOANN BG MON OWN PT EA SPRING-PO A4258 [facility] ARRIV[facility] WERED 6 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 FOR LANCET EACH BLD GLU A4253 [facility] AR[facility] TEST/REAG 6 MEDICAL MEDICAL T STRIPS HOME BLD GLU MON-50 NORMAL A4256 [facility] LOW AND 6 MEDICAL MEDICAL HIGH CALIBRATO R SOLUTION/ CHIPS LANCETS A4259 [facility] PER BOX 6 MEDICAL MEDICAL OF 100 CULTURE 02003 [facility] BCT 6 DIAGNOSTI DIAGNOSTI ISOL&PRSM CS CS PTV ID INCORPORA INCORPORA ISOLATE T T EA URINE CULTURE 25345 [facility] BACTERIAL 6 DIAGNOSTI DIAGNOSTI CS CS QUANTTATI INCORPORA INCORPORA VE COLONY T T COUNT URINE DIAB ONLY A5500 [facility] FIT CSTM 6 [facility] PREP&SPL INC INC SHOE MX DNSITY INSRT FOR DIAB A5512 [facility] YATES ONLY MX 6 [facility] DNSITY INC INC INSRT DIR FORMD PRFAB EA CYANOCOBA 13263 [facility] JOSE [address] [place] [address] COLLECTIO 55477 [facility] VENOUS 6 [facility] VENIPUNCT URE CREATININ 90756 [facility] E OTHER 6 [facility] [place] [address] [facility] FREE [address] [place] [address] [place] [address] [facility] THYROID 6 [facility] [place] [address] [facility] PHOSPHORU 6 [facility] INORGANIC ELECTROLY 09224 [facility] TE PANEL 6 [facility] LIPID 70408 [facility] PANEL 6 [facility] HEPATIC 88020 [facility] FUNCTION 6 [facility] PROTEIN 61635 [facility] TOTAL 6 [facility] REFRACTOM ETRY URINE BLD GLU A4253 [...] T STRIPS HOME BLD GLU MON-50 LIPID 96009 [facility] 6 [facility] COLLECTIO 76308 [facility] N [facility]ENOUS 6 [facility] VENIPUNCT URE COMPREHEN 58167 [facility] SIVE 6 [facility] PANEL CREATININ 46127 SCITUATE PARAG E OTHER 6 [place] [address] SCITUATE PARAG FREE 6 [place] [address] [facility] THYROID 6 [facility] [place] [address] [facility] URINE 6 [facility] ALBUMIN 59736 [facility] URINE 5 [facility] MIN QUANTIATI VE COLLECTIO 55083 [facility] N VENOUS 5 [facility] VENIPUNCT URE RENAL 12840 [facility] FUNCTION 5 [facility] URNLS DIP [address] LET REAGENT AUTO MICROSCOP Y BLD [...] SPRING-PO A4258 ARRIVA ARRIVA WERED 5 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 FOR LANCET EACH WALKING L4360 [facility] BOOT 5 BRACING, BRACING, PNEUMATC INC INC &/ VACUUM PREFAB CUSTM FIT RADEX 04174 [facility] [place] ITALIA ANKLE 5 RADIOLOGY RHO COMPLETE MINIMUM 3 VIEWS RADEX 14600 [facility] [place] ITALIA FOOT 5 RADIOLOGY RHO COMPLETE MINIMUM 3 VIEWS GLUC BLD 64840 JACKELYN RODRIGUEZ GLUC MNTR 5 AND NATHAN RODRIGUEZ, CLEARED PSC FDA SPEC HOME USE ALBUMIN 51401 [facility] URINE 5 [facility] MIN QUANTIATI VE URNLS DIP [address] LET REAGENT AUTO MICROSCOP Y BLOOD 75045 [facility] COUNT 5 [facility] AUTO&AUTO DIFRNTL WBC RENAL 13061 [facility] [place] FUNCTION 5 [facility] BLD GLU A4253 ARRIVA ARRIVA TEST/REAG [...] T STRIPS HOME BLD GLU MON-50 CREATININ 64513 [facility] E OTHER 5 [facility] COLLECTIO 83771 [facility] N VENOUS 5 [facility] VENIPUNCT URE CULTURE 27540 [facility] BACTERIAL 5 [facility] QUANTTATI VE COLONY COUNT URINE PROTEIN 76067 [facility] T[facility] TOTAL 5 [facility] REFRACTOM ETRY URINE URNLS DIP 70687 [facility] TUTTLE 5 [facility] LET REAGENT AUTO MICROSCOP Y RENAL 07014 [facility] [place] FUNCTION 5 [facility] DUP-SCAN 67376 NEPHROLOG GURVINDER ARTL LEEROY 5 Y [place] ABDL/PEL/ ASSOCIATE SCROT&/[place] [address] NEPHROLOG GURVINDER RETROPERI 5 Y [place] TONEAL ASSOCIATE REAL TIME S OF [place] W/IMAGE COMPLETE BLOOD 03011 [facility] [place] COUNT 5 [facility] SMEAR [facility] MCRSCP W/MNL DIFRNTL WBC COUNT PROTEIN 05810 [facility] TOTAL 5 [facility] XCPT [facility] REFRACTOM ETRY URINE URNLS DIP [address] STICK/[facility] HOSP[facility] HOSPITAL LET REAGENT AUTO MICROSCOP Y BLOOD 48158 [facility] COUNT 5 [facility] AUTOMATED RENAL 54218 [facility]ATE [facility] FUNCTION 5 [facility] CREATININ 33991 [facility] E OTHER 5 [facility] COLLECTIO 21408 [facility] N VENOUS 5 [facility] [place] [address] [facility] THYROID 5 [facility] [place] [address] [facility] FREE 5 [facility] THYROXINE [facility] CREATININ 22390 SCIT[facility]ATE [facility] OTHER 5 [facility] COMPREHEN 55137 [facility] SIVE 5 [facility] METABOLIC [facility] PANEL COLLECTIO 20337 [facility] N VENOUS 5 [facility] VENIPUNCT URE LIPID 14643 [facility] PANEL [address] [place] [address] ALBUMIN 82457 [facility] URINE 5 [facility] HOSPITAL MIN QUANTIATI VE SPRING-PO A4258 ARRIVA ARRIVA WERED 5 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 FOR LANCET EACH REPL JESSE A4235 ARRIVA [...] SPRING-PO A4258 ARRIVA ARRIVA WERED 4 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 FOR LANCET EACH REPL JESSE A4235 ARRIVA [...] INC INSRT DIR FORMD PRFAB EA HEMOGLOBI 82009 [place] N [facility] SHAMAR A1C PSC GLUC BLD 53513 [place] GLUC MNTR 4 [facility] CLEARED [facility] FDA SPEC HOME USE BLOOD 64994 [facility] COUNT 4 CLINIC CLINIC COMPLETE [place] [address] [facility] THYROID 4 CLINIC CLINIC STIMULATI [facility]OR[facility] [place] [address] [facility] FREE 4 CLINIC CLINIC THYROXINE LABORATO LABORATO COLLECTIO 05767 [facility] N VENOUS 4 CLINIC CLINIC BLOOD LABORATO LABORATO VENIPUNCT URE PROTEIN 13862 [facility] TOTAL 4 [facility] REFRACTOM ETRY URINE LIPID 02949 [facility] PANEL 4 [facility] CREATININ 76910 [facility] E OTHER 4 [facility] COMPREHEN 21963 [facility] SIVE 4 [facility] PANEL COLLECTIO 67904 [facility] N VENOUS 4 [facility] VENIPUNCT URE INJECTION [id number] [address] [facility] MIDAZOLAM PENG PENG HCL PER 1 MG CATARACT 03180 [facility] REMOVAL [address] [place] [address] [facility] INSERTION PENG PENG OF LENS INJECTION [id number] ADRENALIN PENG PENG EPINEPHRI NE 0.1 MG ANESTHESI 46677 FREDERICK ORTIZ A EYE 4 LTH JASBIR LENS ANESTHESI SURGERY A PSC INJECTION J2001 [place] [address] [place] LIDOCAINE PENG PENG HCL INTRAVENO US INFUS 10 MG POSTERIOR V2632 [facility] CHAMBER 4 [place] [place] INTRAOCUL PENG PENG AR LENS OPH BMTRY 69264 ANUSHA PELAEZ [facility] US 4 [facility] INSTITUTE A-SCAN IO LENS PWR NETO NORMAL A4256 ARRIVA ARRIVA LOW AND 4 MEDICAL MEDICAL HIGH CALIBRATO R SOLUTION/ CHIPS LANCETS A4259 ARRIVA ARRIVA PER BOX 4 MEDICAL MEDICAL OF 100 BLD GLU A4253 ARRIVA ARRIVA TEST/REAG 4 MEDICAL MEDICAL T STRIPS HOME BLD GLU MON-50 ANESTHESI 93587 FREDERICK ORTIZ A EYE 4 LTH JASBIR LENS ANESTHESI SURGERY A PSC INJECTION [id number] [place] ADRENALIN PENG PENG EPINEPHRI NE 0.1 MG INJECTION J2001 [address] [place] LIDOCAINE PENG PENG HCL INTRAVENO US INFUS 10 MG POSTERIOR V2632 [facility] CHAMBER 4 [facility] INTRAOCUL PENG PENG AR LENS INJECTION J2250 [facility] 4 [facility] MIDAZOLAM PENG PENG HCL PER 1 MG CATARACT 53360 ANUSHA PELAEZ JASBIR REMOVAL 4 EYE INSERTION [facility]STITUTE OF LENS OPH BMTRY 41157 ANUSHA PELAEZ JASBIR US 4 [facility] INSTITUTE A-SCAN IO LENS PWR NETO OPH BMTRY 01873 NEW [place] US 4 [facility] A-SCAN PSC IO LENS PWR NETO DETERMINA 87565 NEW [facility] TION 4 [facility] REFRACTIV CLINIC E STATE PSC OPHTH 05461 NEW [facility] MEDICAL 4 [facility] XM&EVAL CLINIC COMPRHNSV PSC ESTAB PT 1/> REPL JESSE A4235 ARRIVA ARRIVA LITHIUM 4 MEDICAL MEDICAL MED NECES JOANN BG MON OWN PT EA SPRING-PO A4258 ARRIVA ARRIVA WERED 4 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 FOR LANCET EACH NORMAL A4256 ARRIVA ARRIVA LOW AND 4 MEDICAL MEDICAL HIGH CALIBRATO R SOLUTION/ CHIPS BLD GLU A4253 ARRIVA ARRIVA TEST/REAG 4 MEDICAL MEDICAL T STRIPS HOME BLD GLU MON-50 LANCETS A4259 ARRIVA ARRIVA PER BOX 4 MEDICAL [facility] OF 100 HEMOGLOBI [address] [facility] N [address] [facility] [address] [facility] SHAMAR A1C PSC GLUC BLD [address] [place] GLUC MNTR 3 [facility] DEV CLINIC CLEARED PSC FDA [...] FORMD PRFAB EA DIAB ONLY A5500 YATES YTAES FIT CSTM 3 [facility] SHOE MX DNSITY INSRT RADIOLOGI 70101 [place] DEGNORE C 3 ORTHOPAED LIS EXAMINATI IC & HAND ON FOOT 2 VIEWS LANCETS A4259 ARRIVA ARRIVA PER BOX 3 MEDICAL MEDICAL OF 100 BLD GLU A4253 ARRIVA ARRIVA TEST/REAG 3 MEDICAL MEDICAL T STRIPS HOME BLD GLU MON-50 BLD GLU A4253 [facility] TEST/REAG 3 PHARM PHARM T STRIPS #[id number] #[id number] HOME BLD GLU MON-50 COLLECTIO 51997 [facility] N VENOUS 3 CLINIC CLINIC BLOOD LABORATO LABORATO VENIPUNCT URE GLUC BLD 15575 [facility] [facility] MNTR 3 [facility]UL[facility]ERRY TH DEV CLINIC CLEARED PSC FDA SPEC HOME USE HEMOGLOBI 58793 [place] N 3 [facility] GLYCOSYLA CLINIC SHAMAR A1C PSC BASIC 67242 [facility] METABOLIC 3 CLINIC CLINIC PANEL LABORATO LABORATO CALCIUM TOTAL TRANSFERA 20952 [facility] SE 3 [facility] AMINO ALT SGPT COLLECTIO 14894 [facility] N VENOUS 3 [facility] VENIPUNCT URE LIPID [address] [facility] PANEL 3 [facility] RADIOLOGI 47562 [place] C 3 ORTHOPAED LIS EXAMINATI IC & HAND ON FOOT 2 VIEWS FOR DIAB A5513 THE THE ONLY MX 3 [facility] FOOT FOOT INSRT CENTER CENTER CSTM MOLD CSTM EA CHASE-PO A4258 [place] WERED 3 [facility] HEALTHCAR [...] LLC HOME BLD GLU MON-50 WALKING L4386 [facility] BOOT 3 ORTHOPAED ORTHOPAED NON-PNEUM IC & HAND IC & HAND ATIC PREFAB CUSTOM FIT RADIOLOGI 93070 [place] C 3 ORTHOPAED LIS EXAMINATI IC & HAND ON FOOT 2 VIEWS MRI LOWER 89854 [facility] [place] PATY EXTREM 3 RADIOLOGY III EDISON OTH/THN JT W/O CONTR MATRL RADEX 76624 [facility] [place] JUNI MAT FOOT 3 RADIOLOGY COMPLETE MINIMUM 3 VIEWS GONADOTRO 00641 [facility] PIN 3 CLINIC CLIN[facility] FOLLICLE LABORATO LABORATO STIMULATI NG HORMONE PROTEIN 36064 [facility] TOTAL 3 CLINIC CLINIC XCPT LABORATO LABORATO REFRACTOM ETRY URINE LIPID 53756 [facility] PANEL 3 [facility] LABOR[facility]O COLLECTIO 34474 [facility] N VENOUS 3 [facility] BLOOD [place] [address] [facility] FREE 3 CLINIC CLINIC THYROXINE LABORATO LABORATO CREATININ 84091 [facility] E OTHER 3 [facility] SOURCE LABORATO LABORATO LIPID 38044 [facility] 3 [facility] [place] [address] [facility] THYROID 3 [facility] NG HORMONE TSH CREATININ 61383 [facility] E OTHER 3 [facility] COMPREHEN 05923 [facility] SIVE 3 [facility] PANEL COLLECTIO 01088 [facility] N VENOUS 3 [facility] VENIPUNCT URE PROTEIN 49324 [facility] TOTAL 3 [facility] RE[facility] ETRY URINE LANCETS A4259 [facility] PER BOX 3 MEDICAL MEDICAL OF 100 SUPPLY SUPPLY INC. INC. BLD GLU A4253 [facility] TEST/REAG 3 MEDICAL MEDICAL T STRIPS SUPPLY SUPPLY HOME BLD INC. INC. GLU MON-50 HEMOGLOBI 52563 MARLENI MILAN N 2 [facility] CLINIC SHAMAR A1C PSC GLUC BLD 75210 [facility] [place] GLUC MNTR 2 [facility] DEV CLINIC CLEARED PSC FDA SPEC HOME USE A4258 [facility]ERTY WERED 2 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 SUPPLY SUPPLY FOR INC. INC. LANCET EACH BLD GLU A4253 [facility]ERTY TEST/REAG 2 MEDICAL MEDICAL T STRIPS SUPPLY SUPPLY HOME BLD INC. INC. GLU MON-50 BLD GLU A4253 [facility]ERTY TEST/REAG 2 MEDICAL MEDICAL T STRIPS SUPPLY SUPPLY HOME BLD INC. INC. GLU MON-50 LANCETS A4259 [facility]ERTY PER BOX 2 [facility] MEDICAL OF 100 SUPPLY SUPPLY INC. INC. CREATINE 18174 [facility] KINASE 2 [facility] HEPATIC 97135 [facility] FUNCTION 2 [facility] LIPID 42882 [facility] PANEL [address] [place] [address] LIPID 19377 [facility] PANEL [address] [place] [address] COMPREHEN 25842 [facility] SIVE 2 [facility] PANEL COLLECTIO 73214 [facility] N VENOUS 2 [facility] VENIPUNCT URE NORMAL A4256 LIBERTY LIBERTY [...] [place] [address] NEW ALEX TRANSVAGI 2 [facility] NAL CLINIC PSC SCREEN Q0091 NEW [facility] PAP 2 [place] CLA SMEAR; CLINIC OBTAIN PSC PREP &C ONVEY TO LAB SCR G0145 [facility] CYTOPATH 2 CLINIC CLINIC CERV/VAG LABORATO LABORATO SCR AUTO&MNL RSCR PHYS CERV/VAGI G0101 NEW [facility]ING NAL 2 [place] CLA CANCER CLINIC SCR; PSC PELV&CLIN BREAST EXAM BASIC 57257 [facility] METABOLIC 2 CLINIC CLINIC PANEL LABORATO LABORATO CALCIUM TOTAL COLLECTIO 66715 [facility] N VENOUS 2 CLINIC CLINIC BLOOD LABORATO LABORATO VENIPUNCT URE SPRING-PO A4258 [facility] LIBERTY 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 2 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 SUPPLY SUPPLY FOR LANCET EACH BLD GLU A4253 [facility] LIBERTY TEST/REAG 2 MEDICAL MEDICAL T STRIPS SUPPLY SUPPLY HOME BLD GLU MON-50 COMPUTER- 58832 [place] AIDED 2 MEDICAL SHATNA DETECTION IMAGING ASS SCREENING MAMMOGRAP HY SCREENING G0202 [facility] 2 MEDICAL MEDICAL MAMMOGRAP IMAGING IMAGING HY MORENO ASS ASS INCL CAD WHEN PERFORMD OPHTH 18121 [facility] 2 [facility] XM&EVAL CLINIC COMPRHNSV PSC ESTAB PT 1/> DETERMINA 70580 NEW [facility] TI 2 [facility] REFRACTIV CLINIC E STATE PSC INJECTION J0696 MICHAEL RODRIGUEZ 2 NATHAN [place]OV[place] NE SODIUM PER [address] [place] [address] [facility] THYROID 2 [facility] NG HORMONE TSH COMPREHEN 44998 [facility] SIVE 2 [facility] PANEL COLLECTIO 63982 [facility] N VENOUS 2 [facility] VENIPUNCT URE LIPID 03723 [facility] PANEL [address] [place] [address] BLD GLU A4253 [facility] LIBERTY TEST/REAG 2 MEDICAL MEDICAL T STRIPS SUPPLY SUPPLY HOME BLD GLU MON-50 CREATININ 50813 [facility] E OTHER 2 [facility] SOURCE LABORATO LABORATO URNLS DIP 40234 [facility] 2 CLINIC CLINIC STICK/TAB LABORATO LABORATO LET REAGENT AUTO MICROSCOP Y PROTEIN 60267 [facility] TOTAL 2 CLINIC CLINIC XCPT LABORATO LABORATO REFRACTOM ETRY URINE URNLS DIP 07034 MICHAEL RODRIGUEZ 1 NATHAN NATHAN STICK/TAB LET RGNT NON-AUTO W/O MICRSCP BLD GLU A4253 [facility]ERTY TEST/REAG 1 MEDICAL MEDICAL T STRIPS SUPPLY SUPPLY HOME BLD GLU MON-50 OPHTH 78354 [facility] 1 [facility] XM&EVAL CLINIC COMPRHNSV PSC ESTAB PT 1/> [...] SUPPLY SUPPLY HOME BLD GLU MON-50 OPHTH 03089 [facility] 1 [facility]&EVAL CLINIC COMPRHNSV PSC ESTAB PT 1/> LANCETS A4259 [facility] LIBERTY PER BOX 1 [facility] MEDICAL OF 100 SUPPLY SUPPLY BLD GLU A4253 [facility] TEST/REAG 1 MEDICAL MEDICAL T STRIPS SUPPLY SUPPLY HOME BLD GLU MON-50 [place] [address] [facility] 1 [facility] PATHOLOGY GROSS&QUITA ROSCOPIC EXAM SCREENING G0202 DAVID HERNANDEZ 0 [facility] MAMMOGRAP INC INC HY MORENO INCL CAD WHEN PERFORMD COMPUTER- 99256 DAVID HERNANDEZ AIDED 0 [facility] DETECTION INC INC SCREENING MAMMOGRAP HY LANCETS A4259 [facility]ERTY PER BOX 0 MEDICAL MEDICAL OF 100 SUPPLY SUPPLY BLD GLU A4253 [facility] TEST/REAG 0 MEDICAL MEDICAL T STRIPS SUPPLY SUPPLY HOME BLD GLU MON-50 PROTEIN 91882 [place] TOTAL 0 [facility]IC CLINIC XCPT LABORATO LABORATO REFRACTOM ETRY URINE HEMOGLOBI 43069 [facility] [place] N 0 [facility] THO GLY[facility]OSYLA CLINIC SHAMAR A1C PSC GLUC BLD 06799 [place] GLUC MNTR 0 [place] THO DEV CLINIC CLEARED [facility] FDA SPEC HOME USE CREATININ 26343 [facility] E OTHER 0 [facility] SOURCE LABORATO LABORATO LIPID 29459 [facility] PANEL 0 [facility] [place] [address] [facility] THYROID 0 [facility] NG HORMONE TSH COMPREHEN 19932 [facility] SIVE 0 [facility] PANEL COLLECTIO 42866 [facility] N VENOUS 0 [facility] VENIPUNCT URE OPHTH 50731 [facility] 0 [facility] EGRALDO XM&EVAL CLINIC COMPRHNSV PSC ESTAB PT 1/> LANCETS A4259 [facility]ERTY PER BOX 0 MEDICAL MEDICAL OF 100 SUPPLY SUPPLY BLD GLU A4253 [facility] TEST/REAG 0 MEDICAL MEDICAL T STRIPS SUPPLY SUPPLY HOME BLD GLU MON-50 GLUC BLD 46910 [place], GLUC MNTR 0 [facility] CLEARED PSC FDA SPEC HOME USE HEMOGLOBI 01029 [place], N 0 [facility] SHAMAR A1C PSC LIPID 80774 [facility] PANEL 0 [facility] COMPREHEN 50820 [facility] SIVE 0 [facility] PANEL COLLECTIO 15499 [facility] N VENOUS 0 [facility] VENIPUNCT URE BLD GLU A4253 [facility] TEST/REAG 0 MEDICAL MEDICAL T STRIPS SUPPLY SUPPLY HOME BLD GLU MON-50 LANCETS A4259 [facility] PER BOX 0 MEDICAL MEDICAL OF 100 SUPPLY SUPPLY NORMAL A4256 [facility] LOW AND 0 MEDICAL MEDICAL HIGH SUPPLY SUPPLY CALIBRATO R SOLUTION/ CHIPS CHASE-PO A4258 [facility] LIBERTY 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 SUPPLY SUPPLY FOR LANCET EACH HEMOGLOBI 33008 Edilma BAIRES 0 [facility] Champion [facility]LA CLINIC SHAMAR A1C PSC GLUC BLD 82431 MARLENI MILAN, GLUC MNTR 0 [facility] Champion DEV CLINIC CLEARED PSC FDA SPEC HOME USE COLLECTIO 85153 [facility] N VENOUS 0 CLINIC CLINIC BLOOD LABORATOR LABORATOR VENIPUNCT Y Y URE BASIC 60053 [facility] METABOLIC 0 CLINIC CLINIC PANEL LABORATOR LABORATOR CALCIUM Y Y TOTAL LIPID 71883 [facility] PANEL 0 [facility] COMPREHEN 68367 [facility] SIVE 0 [facility] PANEL COLLECTIO 05573 [facility] N VENOUS 0 [facility] VENIPUNCT URE OPHTH 61252 [place] 0 [place] XM&EVAL CLINIC COMPRHNSV PSC ESTAB PT 1/> LANCETS A4259 [facility]ERTY PER BOX 0 MEDICAL MEDICAL OF 100 SUPPLY SUPPLY BLD GLU A4253 [facility] TEST/REAG 0 MEDICAL MEDICAL T STRIPS SUPPLY SUPPLY HOME BLD GLU MON-50 RADEX 62895 [facility] [place], FOOT 9 RADIOLOGY J COMPLETE MINIMUM 3 VIEWS COLLECTIO 33960 [facility] N VENOUS 9 [facility] VENIPUNCT URE LIPID 37866 [facility] PANEL 9 [facility] HEPATIC 80083 [facility] FUNCTION 9 [facility] BLD GLU A4253 [facility] TEST/REAG 9 MEDICAL MEDICAL T STRIPS SUPPLY SUPPLY HOME BLD GLU MON-50 LANCETS A4259 [facility] LIBERTY PER BOX 9 MEDICAL MEDICAL OF 100 SUPPLY SUPPLY NORMAL A4256 [facility] LOW AND 9 MEDICAL MEDICAL HIGH SUPPLY SUPPLY CALIBRATO R SOLUTION/ CHIPS LIPID 97191 [facility] PANEL 9 CLINIC CLINIC LABORATOR LABORATOR Y Y HEMOGLOBI 87696 MARLEIN MILAN N 9 [facility] SHAMAR A1C PSC GLUC BLD 58507 MARLENI MILAN, GLUC MNTR 9 ELOISE Champion DEV CLINIC CLEARED [facility] [place] [place] [address] [facility] 9 [facility]INIC STIMULATI LABORATOR LABORATOR NG Y Y HORMONE TSH COLLECTIO 75835 [facility] N VENOUS 9 CLINIC CLINIC BLOOD LABORATOR LABORATOR VENIPUNCT Y Y URE CREATININ 73596 [facility] E OTHER 9 [facility]IC [facility]IN[facility] SOURCE LABORATOR LABORATOR Y Y COMPREHEN 92496 [facility] SIVE 9 CLINIC CLINIC METABOLIC LABORATOR LABORATOR PANEL Y Y PROTEIN 71361 [facility] TOTAL 9 CLINIC CLINIC XCPT LABORATOR LABORATOR REFRACTOM Y Y ETRY URINE BLD GLU A4253 [facility] TEST/REAG 9 MEDICAL MEDICAL T STRIPS SUPPLY SUPPLY HOME BLD GLU MON-50 COMPREHEN 15893 [facility] SIVE 9 CLINIC CLINIC METABOLIC LABORATOR LABORATOR PANEL Y Y COLLECTIO 59793 [facility] N VENOUS 9 CLINIC CLINIC BLOOD LABORATOR LABORATOR VENIPUNCT Y Y URE BILIRUBIN 08388 [facility] DIRECT 9 CLINIC CLINIC LABORATOR LABORATOR Y Y COLLECTIO 86938 [facility] N VENOUS 9 CLINIC CLINIC BLOOD LABORATOR LABORATOR VENIPUNCT Y Y URE COMPREHEN 38926 [facility] SIVE 9 CLINIC CLINIC METABOLIC LABORATOR LABORATOR PANEL Y Y LIPID 12083 [facility] PANEL 9 CLINIC CLINIC LABORATOR LABORATOR Y Y FUNDUS 89884 MARLENI ESTRELLA PHOTOBIA 9 [facility] W/INTERPR [facility] ETATION & REPORT COMPUTER- 84495 DAVID HERNANDEZ AIDED 8 [facility] DETECTION INC INC SCREENING MAMMOGRAP HY SCREENING 75119 DAVID HERNANDEZ 8 [facility] MAMMOGRAP INC INC HY BILATERAL COLLECTIO 26556 [facility] 8 [facility]IN[facility] BLOOD LABORATOR LABORATOR VENIPUNCT Y Y URE BASIC 30509 [facility] METABOLIC 8 CLINIC CLINIC PANEL LABORATOR LABORATOR CALCIUM Y Y TOTAL BLD GLU A4253 [facility] TEST/REAG 8 MEDICAL MEDICAL T STRIPS SUPPLY SUPPLY HOME BLD GLU MON-50 BLD GLU A4253 [facility]ERTY TEST/REAG 8 MEDICAL MEDICAL T STRIPS SUPPLY SUPPLY HOME BLD GLU MON-50 SPRING-PO A4258 [facility] LIBERTY WERED 8 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 SUPPLY SUPPLY FOR LANCET EACH LANCETS A4259 [...] Date Code Location Performer Type Date OFFICE 01562 [facility] 7 [place] T VISIT CLINIC P 40 MINUT[facility] [place] [address] 7 [facility] T OFF[facility] 39729 [facility]OLOG [facility] 7 7 Y T VISIT ASSOCIATE 25 S OF KAREN MINUTES [facility] [place] 17765 7 [facility] T OFFICE 77212 JACKELYN MICHAEL OUTPATIEN 6 6 AND NATHAN T VISIT MICHAEL, 10 PSC MINUTES OFFICE 84158 [facility] OUTPATI 6 6 [facility] T VISIT MEDICAL 15 GROUP MINUTES OFFICE 45474 [facility] OUTPATIEN 6 6 [place] T VISIT CLINIC P 40 MINUTES OFFICE 43089 JACKELYN MICHAEL OUTPATIEN 6 6 AND NATHAN T VISIT MICHAEL, 15 PSC MINUTES OFFICE 04963 JACKELYN MICHAEL OUTPATIEN 6 6 AND NATHAN T VISIT MICHAEL, 10 PSC MINUTES OFFICE 92828 NEPHROLOG HOLLINS OUTPATIEN 6 6 Y LISSET[place] T VISIT ASSOCIATE 25 S OF KAREN MINUTES [facility] [place] - 6 6 [facility] T OFFICE 70821 [facility] 6 6 [facility] P 40 MINUTES OFFICE 47354 [facility] 6 6 [facility] VIS[facility] CLIN[facility] P 40 MINUTES [facility] [place] - 6 6 [facility] T OFFICE 42986 NEPHROLOG RUPALI OUTPATIEN 5 5 Y LUCITA T VISIT ASSOCIATE 25 S OF KAREN MINUTES [facility] [place] - 5 5 [facility] T OFFICE 24938 [facility] 5 ORTHOPEDI GERALDO T NEW 30 C MINUTES [facility]ICE 40219 [facility] 5 ORTHOPEDI GERALDO T NEW 30 C MINUTES ASSOCIAT OFFICE 16730 JACKELYN MICHAEL OUTPATIEN 5 5 AND NATHAN T VISIT MICHAEL, 25 PSC MINUTES [facility] T OFFICE 38201 JACKELYN MICHAEL OUTPATIEN 5 5 AND NATHAN T VISIT MICHAEL, 15 PSC MINUTES OFFICE 79975 [facility] 5 5 [facility] P 40 MINUTES OFFICE 67500 NEPHROLOG EVA OUTPATIEN 5 5 Y SYE T VISIT ASSOCIATE 25 S OF KAREN MINUTES [facility] [place] - 5 5 [facility] T OFFICE 17581 [facility] 5 5 [place] [facility] T VISIT CLINIC P 40 MINUTES OFFICE 58032 NEPHROLOG EVA OUTPATIEN 5 5 Y SYE T VISIT ASSOCIATE 25 S OF KAREN [facility] [place] - 5 5 [facility] OFFICE 99253 NEPH[facility]OLOG [facility] OUTPATIEN 5 5 Y LISSETTE T NEW 60 ASSOCIATE MINUTES S OF [facility] [place] - 5 5 [facility] [place] - 5 5 [facility] T OFFICE 46817 [facility] OUTPATIEN 5 5 [place] AGUSTINA T VISIT CLINIC P 40 MINUTES OFFICE 95929 [facility] 4 4 [facility] 25 PSC MINUTES HOSPITAL [facility] OTHER 4 4 [facility] - 4 4 [facility] - 4 4 [facility] T OFFICE 49431 [facility] OUT[facility] 4 4 [facility] 45 INSTITUTE MINUTES OFFICE 46486 [facility] 3 [place] THO T VISIT CLINIC 25 PSC MINUTES OFFICE 15387 [place] OUTPATIEN 3 3 ORTHOPAED LIS T VISIT IC & HAND 15 MINUTES OFFICE 49875 [facility] 3 3 [facility] 25 PSC MIN[facility]ES [facility] [place] - 3 3 [facility] T OFFICE 47054 [place] OUTPATIEN 3 3 ORTHOPAED LIS T VISIT IC & HAND 15 MINUTES [facility] [place] - 3 3 [facility] T OFFICE 38496 [facility] 3 3 NATHAN NATHAN T VISIT 25 MINUTES [facility] [place] - 3 3 [facility] [place] - 3 3 [facility] T OFFICE 20203 [facility] [facility] OUT[facility] 2 2 ELOISE DURANT T VISIT CLINIC 25 PSC MINUTES OFFICE 61594 JACKELYN HAYDEN OUTPATIEN 2 2 ELIAZAR PEREA T VISIT 15 MINUTES [facility] [place] - 2 2 [facility] [place] - 2 2 [facility] T OFFICE 63635 [place] OUTPATIEN 2 3 ORTHOPAED LIS T [facility] IC & HAND MINUTES [facility]OSPITAL [facility] - 2 2 [facility] 04063 [facility] 2 2 NATHAN NATHAN T VISIT 15 MINUTES [facility] [place] - 2 2 [facility] T OFFICE 06974 MICHAEL MICHAEL OUTPATIEN 1 1 NATHAN NATHAN T VISIT 15 MINUTES OFFICE 48210 MICHAEL MICHAEL OUTPATIEN 1 1 NATHAN NATHAN T VISIT 10 MINUTES [facility]OSPITAL [facility] - 0 0 [facility] OFF[facility] 70077 [facility] T VISIT CLINIC 25 PSC MINUTES [facility] [place] [facility] 0 0 [facility] T OFFICE 01603 [facility] 0 0 ELOISE MONZON T VISIT CLINIC 25 PSC MINUTES [facility] [place] [facility] 0 0 [facility] OFFICE 99607 [facility] 0 0 ELOISE Champion T VISIT CLINIC 25 PSC MINUTES [facility] [place] [facility] 0 0 [facility] T OFFICE 96757 [facility] 9 9 ELOISE Champion T VISIT CLINIC 25 PSC MINUTES [facility] [place] - 9 9 [facility] T OFFICE 81481 ARMAND BAIRES 9 9 ELOISE Champion T VISIT CLINIC 25 PSC MINUTES OFFICE 46627 MARLENI JEANNEMIRIAM [facility] 9 9 [facility]LOISE [place] T VISIT CLINIC 15 PSC MINUTES OFFICE 84250 [facility]JANE [facility] 9 9 ELOISE Champion T VISIT CLINIC 25 PSC MINUTES OFFICE 71126 [facility] 9 9 ELOISE [place] T VISIT CLINIC 15 PSC MINUTES [facility] - 8 8 [facility] OFF[facility] 61422 MICHAEL RODRIGUEZ [facility] 8 8 KIP Isaac T VISIT 10 MINUTES OFFICE 79964 [facility] 8 8 ELOISE ELIOSE T VISIT CLINIC CLINIC 25 PSC PSC MINUTES OFFICE 38091 [facility] 8 8 MINNIE HARTMAN T VISIT M M 10 MINUTES
--- OUTSIDE RECORDS SUMMARY | 2016-08-02 17:58 | External Medical Summary Rpt ---
Author Author , Organization [employer] Address Unknown Phone Unavailable Purpose Continuity of Care Document - 12-04-2015 through 2016 Immunization Name Date Route CVX Reacti Commen Provid Is Given on t er Refuse d Influe Intram 135 Histor WALMAR No nza, 2016 uscula ical T591 High r Inform Dose ation - Source Unspec ified PCV13 Intram 133 Histor WALMAR No 2015 uscula ical T591 r Inform ation - Source Unspec ified
--- OUTSIDE RECORDS SUMMARY | 2016-08-02 17:58 | External Medical Summary Rpt ---
Author Author , Organization [employer] Address Unknown Phone Unavailable Care Team Providers Care Principal Network Engineer Name Role Phone MICHAEL EVANS MICHAEL Unavailable Unavailable NATHAN EVANS MICHAEL Unavailable Unavailable KIP FLORES, Unavailable Unavailable KIP RODRIGUEZ J, Unavailable Unavailable Akira NGUYEN [facility], Unavailable Unavailable [facility], Unavailable Unavailable [facility] Unavailable Unavailable MEDICAL GROUP, [facility] BEITING CLA, BEITING Unavailable Unavailable CLA [employer], Unavailable Unavailable INC, [employer], Unavailable Unavailable INC, [employer] [facility] Unavailable Unavailable [facility], [facility] Unavailable [facility]available [facility], [facility] Unavailable Unavailable [facility], [facility] RUPALI LUCITA, RUPALI Unavailable Unavailable LUCITA ALEX SHA, ALEX Unavailable Unavailable SHA [facility], Unavailable Unavailable [facility] IOANA SHANTA, Unavailable Unavailable IOANA SHANTA DEGNORE LIS, DEGNORE Unavailable Unavailable LIS PELAEZ JASBIR, PELAEZ JASBIR Unavailable Unavailable JACKELYN JACKELYN PEREA Unavailable Unavailable ELIAZAR PEREA JACKELYN Unavailable Unavailable ELIAZAR HAYDEN AND MICHAEL, Unavailable Unavailable PSC, [facility], [facility] GOODMAGIW THO, Unavailable Unavailable KOBI DUPREE, Unavailable Unavailable KOBI MILAN ITALIA RHO, ITALIA Unavailable Unavailable [facility] Unavailable Unavailable INC, [facility] EVA SYE, EVA Unavailable Unavailable SYE [facility] Unavailable [facility], [facility] Unavailable Unavailable & HAND, [facility] Unavailable Unavailable & HAND, [facility] Unavailable Unavailable ASSOCIAT, [facility] MINNIE FLYNN, Unavailable Unavailable MINNIE FLYNN KIELAR Unavailable Unavailable ANG LEON, Unavailable Unavailable ANG ESTRELLA STEVE, KOCHU, Unavailable Unavailable [facility], Unavailable Unavailable [facility], Unavailable Unavailable [facility] & Unavailable Unavailable MEDICAL SUPP, [facility] & Unavailable Unavailable MEDICAL SUPP, [facility] Unavailable Unavailable LABORATO, [facility] Unavailable [facility]available [facility] Unavailable Unavailable LABORATORY, [facility] Unavailable Unavailable SU[facility]PL[facility], [facility] Unavailable Unavailable [facility] MATCHESWALSoto PITA, Unavailable Unavailable MATCHESBHARATA PITA YUMIKO SEQUEIRA, Unavailable Unavailable YUMIKO SEQUEIRA [facility] Unavailable Unavailable OF [place], [facility] Unavailable Unavailable [facility], [facility] Unavailable Unavailable PSC, [facility] Unavailable Unavailable INCORPORAT, [facility] Unavailable Unavailable INCORPORAT, [facility] HOLLINS, HOLLINS Unavailable Unavailable HOLLINS LISSETTE, HOLLINS Unavailable Unavailable LISSETTE ELISSA FLOWERS Unavailable Unavailable [id number], Unavailable Unavailable [id number] SPRAGUE, SPRAGUE Unavailable Unavailable SPRAGUE AGUSTINA, SPRAGUE Unavailable Unavailable AGUSTINA [facility] Unavailable Unavailable PENG, [facility]ENG [facility], [facility] Unavailable [facility]available CLINIC P, [facility] P WAESPE GERALDO, WAESPE Unavailable Unavailable GERALDO [facility] Unavailable Unavailable #493, [facility] Unavailable Unavailable #493, [facility] Unavailable [facility]available #591, [facility] Unavailable Unavailable #591, [facility] ADRIANO DEN, ADRIANO Unavailable Unavailable DEN [facility] Unavailable Unavailable INC, [facility] Unavailable Unavailable INC, [facility] JUNI MAT, JUNI MAT Unavailable Unavailable Purpose Continuity of Care Document - 02-24-2007 through 2016 Problems Code Diagnosis DOS Provider Status E1021 TYPE 1 05-27-2016 [facility] W/DIABETIC NEPHROPATHY E1022 TYPE 1 05-27-2016 [facility]ABETES [facility] P W/DIAB CHRON KIDNEY DZ E1039 TYPE 1 DIAB 05-27-2016 THE [facility]LL[facility] [place] W[facility]OTH [facility]AB [facility] P OPHTHALMIC COMP E1065 TYPE 1 05-27-2016 THE NEW DIABETES [facility] P WITH HYPERGLYCEM [place] E669 OBESITY 05-27-2016 THE NEW UNSPECIFIED [facility] P E785 HYPERLIPIDE 05-27-2016 THE NEW PHYLLIS [place] [facility]NS[facility] P I10 ESSENTIAL 05-27-2016 THE NEW PRIMARY [place] HYPERTENSIO [facility] P N R809 PROTEINURIA 05-25-2016 [facility] 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 [place] WITHOUT COMPLICATIO NS N189 CHRONIC 05-10-2016 [facility] DISEASE OF [place] UNSPECIFIED E109 TYPE 1 05-05-2016 [facility] DI[facility]ETES & MELLITUS MEDICAL WITHOUT SUPP COMPLICATIO NS I129 HYPERTENSIV 04-26-2016 [facility]/STAGE 1-4 [facility] CKD OR UNS CKD N3001 ACUTE 02-10-2016 JACKELYN AND CYSTITIS MICHAEL, WITH PSC HEMATURIA R350 FREQUENCY 02-10-2016 JACKELYN AND OF MICHAEL, MICTURITION PSC J0140 ACUTE 01-21-2016 [facility] S MEDICAL UNSPECIFIED GROUP E1040 TYPE 1 01-01-2016 THE NEW DIABETES [facility] P W/DIAB NEUROPATHY UNS Z23 ENCOUNTER 12-04-2015 [facility] IMMUN[facility]591 N J069 ACUTE UPPER 11-10-2015 JACKELYN AND MICHAEL, RESPIRATORY PSC INFECTION UNSPECIFIED J302 OTHER 11-10-2015 JACKELYN AND SEASONAL MICHAEL, ALLERGIC PSC RHINITIS N390 URINARY 10-21-2015 [facility] INFECTION INCORPORAT SITE NOT SPECIFIED E1340 OTHER SPEC 10-17-2015 [facility] W/DIABETIC INC NEUROPATHY UNSPECIFIED D519 VITAMIN B12 09-29-2015 [facility] UNSPECIFIED E1142 TYPE 2 09-29-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 THY E1042 TYPE 1 04-30-2015 [facility] DIABETES [facility] P W/DIAB POLYNEUROPA THY N183 CHRONIC 02-10-2015 [facility] DISEASE OF [place] STAGE 3 MODERATE Q23948 OTHER 11-25-2014 [place] [facility] TENOSYNOVIT IS RT ANKLE & FOOT 11767 TENOSYNOVIT 11-13-2014 JAROD IS OF FOOT BRACING, AND ANKLE INC 77844 PLANTAR 11-13-2014 [place] [facility] FIBROMATOSI ASSOCIAT S 4011 ESSENTIAL 11-11-2014 JACKELYN AND HYPERTPRESTON RODRIGUEZ, N, BENIGN PSC 21550 PAIN IN 11-11-2014 [facility] [place] [facility], RADIOLOGY ANKLE AND FOOT 7242 LUMBAGO 11-11-2014 IVELISSE, PSC 7295 PAIN IN 11-11-2014 [facility] [place] SOFT [facility] TISSUES OF LIMB 04942 SWELLING OF 11-11-2014 [facility] [place] LIMB [facility] 7840 HEADACHE 11-11-2014 IVELISSE, PSC 9597 INJURY 11-11-2014 JACKELYN AND OTHER&UNSPE MICHAEL, CIFIED KNEE PSC LEG ANKLE&FOOT 92098 DIAB 11-06-2014 JACKELYN AND W/RENAL MICHAEL, MANIFESTS PSC TYPE I [JUV TYPE] UNCNTRL 5990 URINARY 11-06-2014 JACKELYN AND TRACT MICHAEL, INFECTION PSC SITE NOT SPECIFIED 88840 DIAB 10-24-2014 THE NEW W/RENAL [place] [facility] P TYPE I [JUV] NOT UNCNTRL 16927 DIAB 10-24-2014 THE NEW W/OPHTH [facility] [facility] P TYPE I [JUV] NOT UNCNTRL 82501 BACKGROUND 10-24-2014 THE NEW DIABETIC [place] [facility] P 5853 CHRONIC 10-24-2014 THE NEW KIDNEY [place] [facility] P STAGE III (MODERATE) 4019 UNSPECIFIED 10-07-2014 [facility] HYPERTENSIO OF [place] N 7910 PROTEINURIA 10-07-2014 [facility] [place] 17661 DIAB W/O 09-30-2014 [facility] COMP TYPE I MEDICAL [JUV] NOT STATED UNCNTRL 08196 HTN CKD UNS 09-30-2014 [place] W/[facility] STAGE I HOSPITAL THRU STAGE IV/UNS 5859 CHRONIC 09-30-2014 [place] KIDNEY [facility] DISEASE [facility] UNSPECIFIED 64399 DIAB W/O 09-17-2014 [facility] COMP TYPE [facility] II/UNS NOT INC STATED UNCNTRL 01591 DIAB 07-11-2014 THE NEW W/NEURO [place] [facility] P TYPE I [JUV TYPE] UNCNTRL 3572 POLYNEUROPA 07-11-2014 THE NEW THY IN [place] [facility] P 74444 NEPHRITIS&N 07-11-2014 THE NEW EPHROPATHY- [facility] [place] [address] MIGRAINE 05-27-2014 NEPHROLOGY UNSP W/O ASSOCIATES INTRACT W/O OF [place] STATUS MIGRAINOSUS 5849 ACUTE 05-27-2014 [facility] FAILURE OF [place] UNSPECIFIED 30244 DIAB W/O 04-24-2014 [facility] COMP TYPE I HOSPITAL [JUV TYPE] UNCNTRL 2724 OTHER AND 04-24-2014 [facility] HOSPITAL HYPERLIPIDE PHYLLIS 06027 DIAB 03-13-2014 THE NEW W/OPHTH [place] [facility] P TYPE I [JUV TYPE] UNCNTRL 33799 NUCLEAR 10-12-2013 [facility] 3674 PRESBYOPIA 10-12-2013 [facility] 89582 APHAKIA 10-12-2013 [facility] 64618 DIAB W/O 08-13-2013 [place] [facility] COMP TYPE LABORATO II/UNS TYPE UNCNTRL 3669 UNSPECIFIED 08-02-2013 [facility] PENG V5867 LONG-TERM 08-02-2013 [facility] USE OF [facility] INSULIN PENG 50432 DIAB 06-01-2013 [facility] TYPE II/UNS NOT UNCNTRL 32245 NONPROLIFER 06-01-2013 [facility] ATIVE [place] [facility] [place] 50241 POSTERIOR 06-01-2013 [facility] SUBCAPSULAR [place] [facility]AR [facility] PSC SENILE CATARACT 30441 DERMATOCHAL 06-01-2013 [facility] ASIS [facility] PSC 26495 DIAB 11-15-2012 [place] W/NEURO ORTHOPAEDIC MANIFESTS & HAND TYPE II/UNS NOT UNCNTRL 3558 UNSPECIFIED 11-15-2012 [facility] MONONEURITI & HAND S OF LOWER LIMB 7135 ARTHROPATHY 11-15-2012 [place] [facility] & HAND W/NEUROLOGI NETO DISORDERS V5883 ENCOUNTER 09-25-2012 [facility] DRUG MONITORING 7823 EDEMA 09-20-2012 [facility] HAND 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 2469 UNSPECIFIED 05-24-2012 [place] [facility]ORDER [facility] 55652 NEPHROTIC 01-27-2012 [facility] SYND W/OTH [place] PATHAL LES [facility] PSC DZ CLASS ELSW 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 6259 UNSPEC 07-05-2011 NEW SYMPTOM [place] [facility] PSC W/FEMALE GENITAL ORGANS V7231 ROUTINE 06-23-2011 [facility] GYNECOLOGIC [facility] EXAMINATION V762 SCREENING 06-23-2011 [place] [facility] MALIGNANT LABORATO NEOPLASM OF THE CERVIX V7612 OTHER 05-04-2011 [place] SCREENING MEDICAL MAMMOGRAM IMAGING ASS 3670 HYPERMETROP 04-23-2011 [facility] IA [facility] PSC 4619 ACUTE 04-16-2011 MICHAEL NATHAN SINUSITIS, UNSPECIFIED 57665 URINARY 12-10-2010 MICHAEL NATHAN FREQUENCY 462 ACUTE 09-23-2010 MICHAEL NATHAN PHARYNGITIS 4659 ACUTE URIS 09-23-2010 IMCHAEL NATHAN OF UNSPECIFIED SITE 2134 BENIGN 02-16-2010 [facility] [place] INC [place] G BONES UPPER LIMB 14639 CORTICAL 10-03-2009 [facility] SENILE [place] [facility] PSC 75508 CALCANEAL 01-13-2009 [facility] [place] [facility]UR [facility] 5999 UNSPECIFIED 05-01-2007 MICHAEL, DISORDER KIP L OF URETHRA&URI NARY TRACT 65360 DIAB 02-27-2007 [facility] W/NEURO [place] [facility] PSC TYPE I [JUV] NOT UNCNTRL Immunization Name Date Route CVX Reacti Commen Provid Is Given on t er Refuse d PCV13 133 [facility] No VACCIN 2015 RT E FOR PHARMA INTRAM CY USCULA #591 R USE IIV 135 [facility] No VACCIN 2016 RT E PHARMA PRESER CY V FREE #591 INCREA SED AG CONTEN T IM Procedures Procedure DOS Code Location Performer Comment GLUC BLD 75367 [facility] [place] [facility] MNTR 7 [place] [facility] P CLEARED FDA SPEC HOME USE HEMOGLOBI 03742 [facility] [place] N 7 [place] [facility] P SHAMAR A1C BASIC 00782 [facility] METABOLIC [address] [place] [address] CALCIUM TOTAL COLLECTIO 25296 [facility] N VENOUS 7 [facility] VENIPUNCT URE BLD GLU A4253 [facility] TEST/REAG 7 DIABETES DIABETES T STRIPS & MEDICAL & MEDICAL HOME BLD SUPP SUPP GLU MON-50 LANCETS A4259 [facility] PER BOX 7 DIABETES DIABETES OF 100 & MEDICAL & MEDICAL SUPP SUPP LIPID 38194 [facility] PANEL 7 [facility] URNLS DIP [address] STICK[facility] HOSPITAL HOSPITAL LET REAGENT AUTO MICROSCOP Y CULTURE 36468 [facility] BACTERIAL 7 [facility] QUANTTAT[place] [address] [facility] PHOSPHORU 7 [facility] INORGANIC COLLECTIO 02417 [facility] N VENOUS 7 [facility] VENIPUNCT URE COMPREHEN 49222 [facility] SIVE [address] [place] [address] PANEL CREATININ 94645 [facility] E OTHER 7 [facility] [place] [address] [facility] FREE 7 [facility] [place] [address] [facility] THYROID 7 [facility] TSH ALBUMIN 50105 [facility] URINE 7 [facility] MIN QUANTIATI VE BLD GLU A4253 [facility] TEST/REAG 6 DIABETES DIABETES T STRIPS & MEDICAL & MEDICAL HOME BLD SUPP SUPP GLU MON-50 NORMAL A4256 [facility] LOW AND 6 DIABETES DIABETES HIGH & MEDICAL & MEDICAL CALIBRATO SUPP SUPP R SOLUTION/ CHIPS LANCETS A4259 [facility] PER BOX 6 DIABETES DIABETES OF 100 & MEDICAL & MEDICAL SUPP SUPP HOME E0607 [facility] BLOOD 6 DIABETES DIABETES GLUCOSE & MEDICAL & MEDICAL MONITOR SUPP SUPP URNLS DIP 53697 JACKELYN RODRIGUEZ 6 AND NATHAN STICK/TAB KALEB RODRIGUEZ RGNT PSC NON-AUTO W/O MICRSCP IIV 31750 [facility] VACCINE 6 [facility]ACY PHARMACY PRESERV #591 #591 FREE INCREASED AG CONTENT IM ADMINISTR G0008 [facility] ATION OF 6 [facility]ARMAC[facility] INFLUENZA #591 #591 VIRUS VACCINE PCV13 88150 [facility] VACCINE 6 [facility] PHARMACY FOR #591 #591 INTRAMUSC ULAR USE ADMINISTR G0009 [facility] ATION OF 6 [facility]ACY PHARMACY PNEUMOCOC #591 #591 NETO VACCINE BLD GLU A4253 [facility] TEST/REAG 6 MEDICAL MEDICAL T STRIPS HOME BLD GLU MON-50 NORMAL A4256 [facility] LOW AND 6 MEDICAL MEDICAL HIGH CALIBRATO R SOLUTION/ CHIPS LANCETS A4259 [facility] PER BOX 6 MEDICAL MEDICAL OF 100 REPL JESSE A4235 [facility] LITHIUM 6 MEDICAL MEDICAL MED NECES JOANN BG MON OWN PT EA SPRING-PO A4258 [facility] WERED 6 MEDICAL 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 EACH CULTURE 46224 [facility] BCT 6 DIAGNOSTI DIAGNOSTI ISOL&PRSM CS CS PTV ID INCORPORA INCORPORA ISOLATE T T EA URINE CULTURE 40751 [facility] BACTERIAL 6 DIAGNOSTI DIAGNOSTI CS CS QUANTTATI INCORPORA INCORPORA VE COLONY T T COUNT URINE DIAB ONLY A5500 [facility] FIT CSTM 6 [facility] PREP&SPL INC INC SHOE MX DNSITY INSRT FOR DIAB A5512 [facility] ONLY MX 6 [facility] DNSITY INC INC INSRT DIR FORMD PRFAB EA ELECTROLY 39623 [facility] TE PANEL 6 [facility] LIPID 63794 [facility] PANEL 6 [facility] HEPATIC 03726 [facility] FUNCTION 6 [facility] CYANOCOBA 21195 [facility] JOSE [address] [place] [address] B-[place] [address] [facility] PHOSPHORU 6 [facility] INORGANIC COLLECTIO 03768 [facility] N VENOUS 6 [facility] VENIPUNCT URE CREATININ 17041 [facility] E OTHER 6 [place] [address] PARAG CASTELLANOON FREE 6 [facility] [place] [address] PARAG CASTELLANOON THYROID 6 [facility] TSH PROTEIN 07428 PARAG TUTTLE TOTAL 6 [facility] REFRACTOM ETRY URINE BLD GLU A4253 [facility] TEST/REAG 6 MEDICAL MEDICAL T STRIPS HOME BLD GLU TUE- NORMAL A4256 [facility] LOW AND 6 MEDICAL MEDICAL HIGH CALIBRATO R SOLUTION/ CHIPS LANCETS A4259 [facility] PER BOX 6 MEDICAL MEDICAL OF 100 BLD GLU A4253 [facility] TEST/REAG 6 MEDICAL MEDICAL T STRIPS HOME BLD GLU TUE- NORMAL A4256 [facility] LOW AND 6 MEDICAL MEDICAL HIGH CALIBRATO R SOLUTION/ CHIPS LANCETS A4259 [facility] PER BOX 6 MEDICAL MEDICAL OF 100 BLD GLU A4253 [facility] TEST/REAG 6 MEDICAL MEDICAL T STRIPS HOME BLD GLU TUE-50 NORMAL A4256 [facility] LOW AND 6 MEDICAL MEDICAL HIGH CALIBRATO R SOLUTION/ CHIPS LANCETS A4259 [facility] PER BOX 6 MEDICAL MEDICAL OF 100 LIPID 95002 PARAG TUTTLE PANEL 6 [facility] COLLECTIO 83323 [facility] N VENOUS 6 [facility] VENIPUNCT URE COMPREHEN 79691 [facility] TUTTLE SIVE 6 [facility] PANEL CREATININ 14650 PARAG SHANAKIMMY E OTHER 6 [facility] [place] [address] PARAG TUTTLE FREE 6 [facility] [place] [address] PARAG TUTTLE THYROID 6 [facility] [place] [place] [address] PARAG TUTTLE URINE 6 [facility] ALBUMIN 71386 PAR[facility] T[facility] URINE 5 [facility] MIN QUANTIATI VE COLLECTIO 10679 PAR[facility] T[facility]LE N VENOUS 5 [facility] VENIPUNCT URE RENAL 60964 [facility] FUNCTION 5 [facility] URNLS DIP 71126 [facility] 5 [facility] LET REAGENT AUTO MICROSCOP Y BLD GLU [...] SPRING-PO A4258 [facility] WERED 5 MEDICAL 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 EACH WALKING L4360 [facility] BOOT 5 BRACING, BRACING, PNEUMATC INC INC &/ VACUUM PREFAB CUSTM FIT RADEX 65573 [facility] [place] ITALIA ANKLE 5 RADIOLOGY RHO COMPLETE MINIMUM 3 VIEWS RADEX 94873 [facility] [place] ITALIA FOOT 5 RADIOLOGY RHO COMPLETE MINIMUM 3 VIEWS GLUC BLD 73940 JACKELYN RODRIGUEZ GLUC MNTR 5 AND NATHAN RODRIGUEZ, CLEARED PSC FDA SPEC HOME USE ALBUMIN 60230 [facility] [place] URINE 5 [facility] MIN QUANTIATI VE BLD GLU A4253 [facility] TEST/REAG 5 MEDICAL MEDICAL T STRIPS HOME BLD GLU MON-50 NORMAL A4256 [facility] LOW AND 5 MEDICAL MEDICAL HIGH CALIBRATO R SOLUTION/ CHIPS LANCETS A4259 [facility] PER BOX 5 MEDICAL MEDICAL OF 100 URNLS DIP 76492 [facility] 5 [facility] LET REAGENT AUTO MICROSCOP Y RENAL 45092 PARAG CASTELLANO FUNCTION 5 [facility] BLOOD 34758 [place] NONA COUNT 5 [facility] AUTO&AUTO DIFRNTL WBC FOR DIAB A5512 TRUDY YATES ONLY MX 5 [facility] DNSITY INC INC INSRT DIR FORMD PRFAB EA DIAB ONLY A5500 [facility]ATES FIT CSTM 5 [facility] PREP&SPL INC INC SHOE MX DNSITY INSRT BLD GLU A4253 [facility] TEST/REAG 5 MEDICAL MEDICAL T STRIPS HOME BLD GLU MON-50 NORMAL A4256 [facility] LOW AND 5 MEDICAL MEDICAL HIGH CALIBRATO R SOLUTION/ CHIPS LANCETS A4259 [facility] PER BOX 5 MEDICAL MEDICAL OF 100 PROTEIN 29315 [facility] TOTAL 5 [facility] REFRACTOM ETRY URINE CULTURE 53551 [facility] BACTERIAL [address] [place] [address] QUANTTATI VE COLONY COUNT URINE COLLECTIO 97297 [facility] N VENOUS 5 [facility] VENIPUNCT URE CREATININ 58726 [facility] SHANAIKMMY E OTHER 5 [facility] RENAL [id number] [facility] [place] FUNCTION [address] [place] [address] URNLS DIP [address] LET REAGENT AUTO MICROSCOP Y DUP-SCAN 56462 ADRIANO ADRIANO ARTL LEEROY 5 DEN DEN ABDL/PEL/ SCROT&/[place] [address] NEPHROLOG GURVINDER PEDROZA 5 Y LISSETTE TONEAL ASSOCIATE REAL TIME S OF KAREN W/IMAGE COMPLETE RENAL [id number] [facility] SHARIFA[facility] FUNCTION [address] [place] [address] BLOOD 93458 [facility] SALDANAURB[facility] COUNT [address] [place] [address] AUTOMATED URNLS DIP 67510 [facility] [address] LET REAGENT AUTO MICROSCOP Y PROTEIN 28859 [facility] TOTAL 5 [facility] REFRACTOM ETRY URINE BLOOD 80909 [facility] [place]STELL[place] COUNT [address] [place] [address] MCRSCP W/MNL DIFRNTL WBC COUNT COLLECTIO 81930 [facility] N VENOUS 5 [facility] VENIPUNCT URE CREATININ 58834 [facility] E OTHER 5 [facility] COLLECTIO 39056 [facility] N VENOUS 5 [facility] VENIPUNCT URE COMPREHEN 90654 [facility] SIVE 5 [facility] PANEL CREATININ 99785 [facility] E OTHER 5 [facility] [place] [address] [facility] FREE 5 [facility] [place] [address] [facility] THYROID 5 [facility]ORM[facility] TSH ALBUMIN 00513 [facility] URINE 5 [facility] MIN QUANTIATI VE LIPID 40799 [facility] PANEL 5 [facility] LANCETS A4259 ARRIVA ARRIVA PER BOX 5 MEDICAL MEDICAL OF 100 BLD GLU A4253 [facility] AR[facility]IVA TEST/REAG 5 MEDICAL MEDICAL T STRIPS HOME BLD GLU MON-50 NORMAL A4256 [facility] AR[facility]IVA LOW AND 5 MEDICAL MEDICAL HIGH CALIBRATO R SOLUTION/ CHIPS REPL JESSE A4235 AR[facility] ARRIVA LITHIUM 5 MEDICAL MEDICAL MED NECES JOANN BG MON OWN PT EA SPRING-PO A4258 ARRIVA ARRIVA WERED 5 MEDICAL 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 EACH BLD GLU A4253 ARRIVA ARRIVA TEST/REAG 4 [...] PER BOX 4 MEDICAL MEDICAL OF 100 REPL JESSE A4235 ARRIVA ARRIVA LITHIUM 4 MEDICAL MEDICAL MED NECES JOANN BG MON OWN PT EA SPRING-PO A4258 ARRIVA ARRIVA WERED 4 MEDICAL 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 EACH BIFOCL V2203 [facility] +/- 4 PHARMACY PHARMACY 4.00D #493 #493 SPHER 0.12-2.00 D CYL-EA SPHERE V2200 [facility] B[facility] 4 [facility]ACY PHARMACY PLANO TO #493 #493 PLUS/JACOB S 4.00D PER LENS FRAMES V2020 [facility] PURCHASES 4 PHARMACY PHARMACY #493 #493 PROGRESSI V2781 [facility] VE LENS 4 PHARMACY PHARMACY PER LENS #493 #493 FOR DIAB A5512 TRUDY YATES ONLY MX 4 [facility] DNSITY INC INC INSRT DIR FORMD PRFAB EA DIAB ONLY A5500 TRUDY VAUGHANAKER FIT CSTM 4 [facility] PREP&SPL INC INC SHOE MX DNSITY INSRT COLLECTIO 05710 [facility] N VENOUS 4 [facility] BLOOD [place] [address] [facility] FREE 4 [facility]IN[facility]IN[facility] [place] [address] [facility] THYROID 4 [facility] STIMULATI LABORATO LABORATO NG HORMONE TSH BLOOD 12465 [facility] COUNT 4 [facility]INIC CLINIC COMPLETE LABORATO LABORATO AUTOMATED GLUC BLD 57879 [place] GLUC MNTR 4 [place] [facility] CLEARED PSC FDA SPEC HOME USE HEMOGLOBI 51953 [place] N 4 [place] [facility]YCOSYLA CLINIC SHAMAR A1C PSC LIPID 78472 PARAG TUTTLE PANEL 4 [facility] COLLECTIO 00595 NONACAROL NONACAROL N VENOUS 4 [facility] VENIPUNCT URE COMPREHEN 32885 NONACAROL PARAG SIVE 4 [facility] PANEL CREATININ 73978 PARAG TUTTLE E OTHER 4 [facility] PROTEIN 95712 [facility] TOTAL 4 [facility] REFRACTOM ETRY URINE INJECTION J0171 [place] [address] [place] [place] ADRENALIN PENG PENG EPINEPHRI NE 0.1 MG ANESTHESI 13145 MATHEUSWESoto BOWERS A EYE 4 [facility] LENS ANESTHESI SURGERY A PSC POSTERIOR V2632 [facility] CHAMBER 4 [place] INTRAOCUL PENG PENG AR LENS INJECTION J2001 [place] [address] [place] LIDOCAINE PENG PENG HCL INTRAVENO US INFUS 10 MG INJECTION J2250 [place] [address] [place] MIDAZOLAM PENG PENG HCL PER 1 MG CATARACT 15844 [facility] 4 EYE INSERTION INSTITUTE OF LENS OPH BMTRY 33008 [facility] EYE ECHOGRAPY INSTITUTE A-SCAN IO LENS PWR NETO BLD GLU A4253 ARRIVA ARRIVA TEST/REAG 4 MEDICAL MEDICAL T STRIPS HOME BLD GLU MON-50 LANCETS A4259 ARRIVA ARRIVA PER BOX 4 MEDICAL [facility] OF 100 NORMAL A4256 ARRIVA ARRIVA LOW AND 4 MEDICAL MEDICAL HIGH CALIBRATO R SOLUTION/ CHIPS CATARACT 25364 [facility] REMOVAL 4 [place] INSERTION PENG PENG OF LENS INJECTION J2250 [place] [address] [facility] [place] MIDAZOLAM PENG PENG HCL PER 1 MG ANESTHESI 89134 [facility] 4 LTH NORIS LENS ANESTHESI SURGERY A PSC INJECTION J0171 [facility] 4 [place] ADRENALIN PENG PENG EPINEPHRI NE 0.1 MG POSTERIOR V2632 [facility] CHAMBER 4 [place] INTRAOCUL PENG PENG AR LENS INJECTION J2001 [place] [address] [facility] [place] LIDOCAINE PENG PENG HCL INTRAVENO US INFUS 10 MG OPH BMTRY 25132 [facility] US 4 EYE ECHOGRAPY INSTITUTE A-SCAN IO LENS PWR NETO OPH BMTRY 39701 [facility] [address] [facility] ECHOGRAPY CLINIC A-SCAN PSC IO LENS PWR NTEO OPHTH 02181 [facility] [address] [facility] XM&EVAL CLINIC COMPRHNSV PSC ESTAB PT 1/> DETERMINA 37544 [place] TION [address] 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 REPL JESSE A4235 ARRIVA ARRIVA LITHIUM 4 MEDICAL MEDICAL MED NECES JOANN BG MON OWN PT EA GLUC BLD 59211 [place] GLUC MNTR 3 [facility] DEV CLINIC CLEARED [facility] FDA SPEC HOME USE HEMOGLOBI 68521 [place] N 3 [facility] GLYCOSYLA CLINIC SHAMAR A1C PSC LANCETS A4259 ARRIVA ARRIVA PER BOX 3 MEDICAL MEDICAL OF 100 BLD GLU A4253 ARRIVA ARRIVA TEST/REAG 3 MEDICAL MEDICAL T STRIPS HOME BLD GLU MON-50 NORMAL A4256 ARRIVA ARRIVA LOW AND 3 MEDICAL MEDICAL HIGH CALIBRATO R SOLUTION/ CHIPS FOR DIAB A5512 YATES YATES ONLY MX 3 [facility] DNSITY INC INC INSRT DIR FORMD PRFAB EA DIAB ONLY A5500 YATES YATES FIT CSTM 3 [facility] PREP&SPL INC INC SHOE MX DNSITY INSRT RADIOLOGI 72592 [place] DEGNORE C 3 ORTHOPAED LIS EXAMINATI IC & HAND ON FOOT 2 VIEWS BLD GLU A4253 ARRIVA ARRIVA TEST/REAG 3 MEDICAL MEDICAL T STRIPS HOME BLD GLU MON-50 LANCETS A4259 ARRIVA ARRIVA PER BOX 3 [facility] OF 100 BLD GLU A4253 [facility] TEST/REAG 3 PHARM PHARM T STRIPS #3914 #3914 HOME BLD GLU MON-50 GLUC BLD 86705 MARLENI MILAN GLUC MNTR 3 [facility] DEV CLINIC CLEARED PSC FDA SPEC HOME USE HEMOGLOBI 23519 NEW ESTEBANW N 3 [place] [facility]OS[facility]LA CLINIC SHAMAR A1C PSC BASIC 51670 [facility] METABOLIC 3 CLINIC CLINIC PANEL LABORATO LABORATO CALCIUM TOTAL COLLECTIO 26299 [facility] N VENOUS 3 CLINIC CLINIC BLOOD LABORATO LABORATO VENIPUNCT URE COLLECTIO 81982 [facility] N VENOUS 3 [facility] VENIPUNCT URE TRANSFERA 70637 [facility] SE 3 [facility] AMINO ALT SGPT LIPID 63523 [facility] PANEL 3 [facility] RADIOLOGI 96181 [place] DEGNORE C 3 ORTHOPAED LIS EXAMINATI IC & HAND ON FOOT 2 VIEWS FOR DIAB A5513 THE THE ONLY MX 3 HEALTHY HEALTHY DNSITY FOOT FOOT INSRT CENTER CENTER CSTM MOLD CSTM EA [facility] A4258 CANYON CANYON WERED 3 HEALTHCAR HEALTHCAR [...] BLD GLU MON-50 WALKING L4386 [facility] BOOT 3 ORTHOPAED ORTHOPAED NON-PNEUM IC & HAND IC & HAND ATIC PREFAB CUSTOM FIT RADIOLOGI 64874 [place] DEGNORE C 3 ORTHOPAED LIS EXAMINATI IC & HAND ON FOOT 2 VIEWS MRI LOWER 23130 [facility] EXTREM 3 [facility] JT W/O CONTR MATRL RADEX 90810 [facility] [place] MAT FOOT 3 RADIOLOGY COMPLETE MINIMUM 3 VIEWS CREATININ 96237 [place] E OTHER 3 [facility] [address] [place] FREE 3 CLINIC CLINIC THYROXINE LABORATO LABORATO COLLECTIO 79460 [place] N VENOUS 3 CLINIC [facility]INIC BLOOD LABORATO LABORATO VENIPUNCT URE PROTEIN 06358 [place] TOTAL 3 CLINIC CLINIC XCPT LABORATO LABORATO REFRACTOM ETRY URINE GONADOTRO 09350 [place] PIN 3 CLINIC CLINIC FOLLICLE LABORATO LABORATO STIMULATI NG HORMONE LIPID 64406 [facility] PANEL 3 CLINIC CLINIC LABORATO LABORATO LIPID 33200 [facility] PANEL 3 [facility] PROTEIN 79282 [facility] TOTAL 3 [facility] REFRACTOM ETRY URINE COLLECTIO 35731 [facility] N VENOUS 3 [facility] VENIPUNCT URE COMPREHEN 29560 [facility] SIVE 3 [facility] PANEL CREATININ 15836 [facility] E OTHER 3 [facility] [place] [address] [facility] THYROID 3 [facility] NG HORMONE TSH BLD GLU A4253 [facility] TEST/REAG 3 MEDICAL MEDICAL T STRIPS SUPPLY SUPPLY HOME [employer] GLU MON-50 LANCETS A4259 [facility]ERTY PER BOX 3 [employer] SUPPLY SUPPLY [email or web address] INC. GLUC BLD 70669 NEW [place] GLUC MNTR 2 [facility] DEV CLINIC CLEARED [facility] FDA SPEC HOME USE HEMOGLOBI 76441 [place] N 2 [facility] GLYCOSYLA CLINIC SHAMAR A1C PSC BLD GLU A4253 [facility] TEST/REAG 2 MEDICAL MEDICAL T STRIPS SUPPLY SUPPLY HOME [employer] 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 LANCET EACH LANCETS A4259 LIB[facility] LIBERTY PER BOX 2 [employer] SUPPLY SUPPLY INC. INC. BLD GLU A4253 LIB[facility] LIBERTY TEST/REAG 2 MEDICAL MEDICAL T STRIPS SUPPLY SUPPLY HOME BLD INC. INC. GLU MON-50 LIPID 15652 [facility] PANEL 2 [facility] HEPATIC 44285 [facility] FUNCTION 2 [facility] CREATINE 77209 [facility] KINASE 2 [facility] COLLECTIO 06309 [facility] N VENOUS 2 [facility] VENIPUNCT URE COMPREHEN 36942 [facility] SIVE 2 [facility] PANEL LIPID 51316 [facility] PANEL 2 [facility] BLD GLU A4253 LIBERTY LIBERTY TEST/REAG 2 MEDICAL MEDICAL T STRIPS SUPPLY SUPPLY HOME BLD INC. INC. GLU MON-50 LANCETS A4259 LIBERTY LIBERTY PER BOX 2 [facility]ICAL [facility]ICAL OF 100 SUPPLY SUPPLY INC. INC. NORMAL A4256 [facility] LIBERTY LOW AND 2 MEDICAL MEDICAL HIGH SUPPLY SUPPLY [employer] R SOLUTION/ CHIPS REPL JESSE A4235 LIBERTY LIBERTY LITHIUM 2 MEDICAL MEDICAL MED NECES SUPPLY SUPPLY JOANN [employer] 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 FOR LANCET EACH BLD GLU A4253 LIB[facility] LIBERTY TEST/REAG 2 MEDICAL MEDICAL T STRIPS SUPPLY SUPPLY HOME BLD GLU MON-50 SCREENING G0202 DAVID HERNANDEZ 2 [facility] MAMMOGRAP INC INC HY MORENO INCL CAD WHEN PERFORMD - 89082 ANUSHA TRIPLETT AIDED 2 MEDICAL SHANTA DETECTION IMAGING ASS SCREENING MAMMOGRAP HY DETERMINA 74150 [facility] 2 [place] GER[facility] REFRACTIV CLINIC E STATE PSC OPHTH 33872 [facility] [place] [facility]ER[facility] XM&EVAL CLINIC COMPRHNSV PSC ESTAB PT 1/> INJECTION J0696 MICHAEL MICHAEL 2 NATHAN NATHAN CEFTRIAXO NE SODIUM PER 250 MG LIPID 66047 [facility] PANEL 2 [facility] COLLECTIO 67393 [facility] N VENOUS 2 [facility] VENIPUNCT URE COMPREHEN 74153 [facility] SIVE 2 [facility] [place] [address] [facility] THYROID 2 [facility] NG HORMONE TSH CREATININ 78580 [facility] E OTHER 2 [facility]IC [facility]INIC SOURCE LABORATO LABORATO BLD GLU A4253 LIB[facility] LIBERTY TEST/REAG 2 MEDICAL MEDICAL T STRIPS SUPPLY SUPPLY HOME BLD GLU MON-50 URNLS DIP 11342 [facility] 2 CLINIC CLINIC STICK/TAB LABORATO LABORATO LET REAGENT AUTO MICROSCOP Y PROTEIN 36009 [facility] TOTAL 2 CLINIC CLINIC XCPT LABORATO LABORATO REFRACTOM ETRY URINE URNLS DIP 73517 MICHAEL MICHAEL 1 NATHAN NATHAN STICK/TAB LET RGNT NON-AUTO W/O MICRSCP BLD GLU A4253 LIB[facility] LIBERTY TEST/REAG 1 MEDICAL MEDICAL T STRIPS SUPPLY SUPPLY HOME BLD GLU MON-50 OPHTH 56337 [facility] 1 [place]ERALDO XM&EVAL CLINIC COMPRHNSV PSC ESTAB PT 1/> BLD GLU A4253 [facility] LIBERTY TEST/REAG 1 MEDICAL MEDICAL T STRIPS SUPPLY SUPPLY HOME BLD GLU MON-50 LANCETS A4259 LIB[facility] LIBERTY PER BOX 1 [facility]ICAL OF 100 SUPPLY SUPPLY NORMAL A4256 [facility] LIBERTY LOW AND 1 MEDICAL MEDICAL HIGH SUPPLY SUPPLY CALIBRATO R SOLUTION/ CHIPS REPL JESSE A4235 LIB[facility] LIBERTY LITHIUM 1 MEDICAL MEDICAL MED NECES SUPPLY SUPPLY JOANN BG MON OWN PT EA BLD GLU A4253 [facility] LIBERTY TEST/REAG 1 MEDICAL MEDICAL T STRIPS SUPPLY SUPPLY HOME BLD GLU MON-50 NORMAL A4256 LIB[facility] LIBERTY LOW AND 1 MEDICAL MEDICAL HIGH SUPPLY SUPPLY CALIBRATO R SOLUTION/ CHIPS OPHTH 81270 [facility] 1 [place] XM&EVAL CLINIC COMPRHNSV PSC ESTAB PT 1/> BLD GLU A4253 [facility] LIBERTY TEST/REAG 1 MEDICAL MEDICAL T STRIPS SUPPLY SUPPLY HOME BLD GLU MON-50 LANCETS A4259 LIBERTY LIBERTY PER BOX 1 [facility] MEDICAL OF 100 [place] [address] [facility] OF [facility]ONE OF SURG 1 [facility] PATHOLOGY GROSS&QUITA ROSCOPIC EXAM SCREENING G0202 [place] IOANA 0 MEDICAL SHANTA MAMMOGRAP IMAGING HY MORENO ASS INCL CAD WHEN PERFORMD COMPUTER- 45806 [place] IOANA AIDED 0 MEDICAL SHANTA DETECTION IMAGING ASS SCREENING MAMMOGRAP HY BLD GLU A4253 [facility] LIBERTY TEST/REAG 0 MEDICAL MEDICAL T STRIPS SUPPLY SUPPLY HOME BLD GLU MON-50 LANCETS A4259 LIBERTY LIBERTY PER BOX 0 MEDICAL [facility] OF 100 SUPPLY SUPPLY GLUC BLD 13880 [place] GLUC MNTR 0 [facility] DEV CLINIC CLEARED PSC FDA SPEC HOME USE HEMOGLOBI 79967 [place] N 0 [facility] GLYCOSYLA CLINIC SHAMAR A1C PSC PROTEIN 43181 [facility] TOTAL 0 CLINIC CLINIC XCPT LABORATO LABORATO REFRACTOM ETRY URINE CREATININ 12763 [facility] E OTHER 0 CLINIC CLINIC SOURCE LABORATO LABORATO COLLECTIO 09588 NONAON PARAG N VENOUS 0 [facility] VENIPUNCT URE COMPREHEN 43386 [facility] 0 [facility] [place] [address] [facility] T[facility] THYROID 0 [facility] NG HORMONE TSH LIPID 86562 PARGA TUTTLE PANEL 0 [facility] OPHTH 69853 [facility]ICAL 0 [place] XM&EVAL CLINIC COMPRHNSV PSC ESTAB PT 1/> BLD GLU A4253 [facility] LIBERTY TEST/REAG 0 MEDICAL MEDICAL T STRIPS SUPPLY SUPPLY HOME BLD GLU MON-50 LANCETS A4259 LIBERTY LIBERTY PER BOX 0 [facility] OF 100 SUPPLY SUPPLY HEMOGLOBI 82967 MARLENI YOON, N 0 [place] [facility] SHAMAR A1C PSC GLUC BLD 15089 MARLENI KOCHU, GLUC MNTR 0 [place] [facility] DEV [facility]IN[facility] CLEARED [facility] FDA SPEC HOME USE LIPID 05475 PARAG TUTTLE PANEL 0 [facility] COLLECTIO 04520 [facility] V[facility] 0 [facility] VENIPUNCT URE COMPREHEN 38163 [facility] SIVE 0 [facility] PANEL NORMAL A4256 LIB[facility] LIBERTY LOW AND 0 MEDICAL MEDICAL HIGH SUPPLY SUPPLY CALIBRATO R SOLUTION/ CHIPS LANCETS A4259 LIBERTY LIBERTY PER BOX 0 [facility]ICAL OF 100 SUPPLY SUPPLY BLD GLU A4253 [facility] LIBERTY TEST/REAG 0 MEDICAL MEDICAL T STRIPS SUPPLY SUPPLY HOME BLD GLU MON-50 SPRING-PO A4258 LIBERTY 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 FOR LANCET EACH BASIC 40340 [facility] METABOLIC 0 CLINIC CLINIC PANEL LABORATOR LABORATOR CALCIUM Y Y TOTAL GLUC BLD 21240 MARLENI POWELLENOW, GLUC MNTR 0 [facility]LO[facility] Champion DEV CLINIC CLEARED [facility] FDA SPEC HOME USE HEMOGLOBI 39583 MARLENI ORELLANAW, N 0 [place] [facility] Champion GLYCOSYLA CLINIC SHAMAR A1C PSC COLLECTIO 84958 [facility] N VENOUS 0 CLINIC CLINIC BLOOD LABORATOR LABORATOR VENIPUNCT Y Y URE LIPID 07189 PARAG TUTTLE PANEL 0 [facility] COLLECTIO 45780 PARAG TUTTLE N VENOUS 0 [facility] VENIPUNCT URE COMPREHEN 71941 PARAG TUTTLE SIVE 0 [facility] PANEL OPHTH 79102 [facility], MEDICAL 0 [place] AN[place] R XM&EVAL CLINIC COMPRHNSV PSC ESTAB PT 1/> LANCETS A4259 LIBERTY LIBERTY PER BOX 0 [facility]ICAL MEDICAL OF 100 SUPPLY SUPPLY BLD GLU A4253 [facility] LIBERTY TEST/REAG 0 MEDICAL MEDICAL T STRIPS SUPPLY SUPPLY HOME BLD GLU MON-50 RADEX 68891 [facility] [place], FOOT 9 RADIOLOGY J COMPLETE MINIMUM 3 VIEWS HEPATIC 83793 PARAG TUTTLE FUNCTION 9 [facility] LIPID 24739 PARAG TUTTLE PANEL 9 [facility] COLLECTIO 68289 PARAG T[place]TLE N VENOUS 9 [facility] VENIPUNCT URE BLD GLU A4253 LIB[facility] LIBERTY TEST/REAG 9 MEDICAL MEDICAL T STRIPS SUPPLY SUPPLY HOME BLD GLU MON-50 NORMAL A4256 LIBERTY LIBERTY LOW AND 9 MEDICAL MEDICAL HIGH SUPPLY SUPPLY CALIBRATO R SOLUTION/ CHIPS LANCETS A4259 LIBERTY LIBERTY PER BOX 9 MEDICAL MEDICAL OF 100 SUPPLY SUPPLY GLUC BLD 20802 KILEY BAIRES MNTR 9 [facility] CLEARED [facility] FDA SPEC HOME USE HEMOGLOBI 96872 MARLENI MILAN N 9 [facility]LA CLINIC SHAMAR A1C PSC LIPID 61379 [facility] PANEL 9 CLINIC CLINIC LABORATOR LABORATOR Y Y COMPREHEN 69259 [facility] SIVE 9 CLINIC CLINIC METABOLIC LABORATOR LABORATOR PANEL Y Y CREATININ 21850 [place] [facility] OTHER 9 CLINIC CLINIC SOURCE LABORATOR LABORATOR Y Y COLLECTIO 49657 [facility] N VENOUS 9 CLINIC CLINIC BLOOD LABORATOR [place]OR[place] [address] [facility] THYROID 9 CLINIC CLINIC STIMULATI LABORATOR LABORATOR NG Y Y HORMONE TSH PROTEIN 58963 [facility] TOTAL 9 CLINIC CLINIC XCPT LABORATOR LABORATOR REFRACTOM Y Y ETRY URINE BLD GLU A4253 LIBERTY LIBERTY TEST/REAG 9 MEDICAL MEDICAL T STRIPS SUPPLY SUPPLY HOME BLD GLU MON-50 COLLECTIO 50841 [facility] N VENOUS 9 CLINIC CLINIC BLOOD LABORATOR LABORATOR VENIPUNCT Y Y URE COMPREHEN 54502 [facility] SIVE 9 CLINIC CLINIC METABOLIC LABORATOR LABORATOR PANEL Y Y COMPREHEN 64945 [facility] SIVE 9 CLINIC CLINIC METABOLIC LABORATOR LABORATOR PANEL Y Y COLLECTIO 11563 [facility] N VENOUS 9 CLINIC CLINIC BLOOD LABORATOR LABORATOR VENIPUNCT Y Y URE LIPID 73026 [facility] PANEL 9 CLINIC CLINIC LABORATOR LABORATOR Y Y BILIRUBIN 91932 [facility] DIRECT 9 CLINIC CLINIC LABORATOR LABORATOR Y Y FUNDUS 25957 MARLENI ESTRELLA, PHOTOGRAP 9 [place] [facility] R HY CLINIC W/INTERPR PSC ETATION & REPORT SCREENING 47175 [place] FABBY, Elda MEDICAL YUMIKO P MAMMOGRAP IMAGING HY ASSOCIATE BILATERAL S COMPUTER- 55960 [place] FABBY, AIDED 8 MEDICAL YUMIKO P DETECTION IMAGING ASSOCIATE SCREENING S MAMMOGRAP HY BASIC 65830 [facility] METABOLIC 8 CLINIC CLINIC PANEL LABORATOR LABORATOR CALCIUM Y Y TOTAL COLLECTIO 49650 [facility] N VENOUS 8 CLINIC CLINIC BLOOD LABORATOR LABORATOR VENIPUNCT Y Y URE BLD GLU A4253 LIB[facility] LIBERTY TEST/REAG 8 MEDICAL MEDICAL T STRIPS SUPPLY SUPPLY HOME BLD GLU MON-50 BLD GLU A4253 LIB[facility] LIBERTY TEST/REAG 8 MEDICAL MEDICAL T STRIPS SUPPLY SUPPLY HOME BLD GLU MON-50 LANCETS A4259 LIBERTY LIBERTY PER BOX 8 MEDICAL MEDICAL OF 100 SUPPLY SUPPLY SPRING-PO A4258 LIB[facility] LIBERTY 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 FOR LANCET EACH BLD GLU A4253 LIB[facility] LIBERTY TEST/REAG 8 MEDICAL MEDICAL T STRIPS SUPPLY SUPPLY HOME BLD GLU MON-50 LANCETS A4259 LIBERTY LIBERTY PER BOX 8 MEDICAL MEDICAL OF 100 SUPPLY SUPPLY NORMAL A4256 LIB[facility]ERTY LOW AND 8 MEDICAL MEDICAL HIGH SUPPLY SUPPLY CALIBRATO R SOLUTION/ CHIPS Encounters Encounter Start End Date Code Location Performer Type Date OFFICE 29521 [facility] [place] [facility] 7 7 [place] [facility] 39633 [facility] Y T VISIT ASSOCIATE 25 S OF KAREN MINUTES [facility] 7 7 [facility] T OFFICE 35900 JACKELYN MICHAEL OUTPATIEN 6 6 AND NATHAN T VISIT MICHAEL, 10 PSC MINUTES OFFICE 03772 [facility] 6 6 [facility]ICAL 15 GROUP MINUTES OFFICE 85868 [facility] [place] [facility] 6 6 [place] [facility] T VISIT CLINIC P 40 MINUTES OFFICE 10544 JACKELYN MICHAEL OUTPATIEN 6 6 AND NATHAN T VISIT MICHAEL, 15 PSC MINUTES OFFICE 59610 JACKELYN MICHAEL OUTPATIEN 6 6 AND NATHAN T VISIT MICHAEL, 10 PSC MINUTES OFFICE 02594 NEPHROLOG HOLLINS OUTPATIEN 6 6 Y [place] T VISIT ASSOCIATE 25 S OF KAREN MINUTES [facility] 30816 [facility] [place] [facility] 6 6 [place] [facility] P 40 MINUTES OFFICE 72025 [facility] [place] [facility] 6 6 [place] [facility] T [facility] P 40 MINUTES [facility] [place] [facility] 6 6 [facility] T OFFICE 02574 NEPHROLOG RUPALI OUTPATIEN 5 5 Y LUCITA T VISIT ASSOCIATE 25 S OF [facility] [place] [facility] 5 5 [facility] OFFICE 95617 [place] [facility] 5 5 ORTHOPEDI GERALDO T NEW 30 C MINUTES ASSOCIAT OFFICE 73359 [place] [facility] 5 5 ORTHOPEDI GERALDO T NEW 30 C MINUTES ASSOCIAT OFFICE [id number] JACKELYN MICHAEL OUTPATIEN 5 5 AND NATHAN T VISIT MICHAEL, 25 PSC MINUTES [facility] OFF[facility] [id number] JACKELYN MICHAEL OUTPATIEN 5 5 AND NATHAN T VISIT MICHAEL, 15 PSC MINUTES OFFICE 01288 [facility] [place] [facility] 5 [facility] P 40 MINUTES OFFICE 82890 NEPHROLOG EVA OUTPATIEN 5 5 Y SYE T VISIT ASSOCIATE 25 S OF [facility] [place] [facility] 5 5 [facility] OFF[facility] 58358 [facility] [place] [facility] [place] [facility] P 40 MINUTES OFFICE 84374 NEPHROLOG EVA OUTPATIEN 5 5 Y SYE T VISIT ASSOCIATE 25 S OF [facility] [place] [facility] 5 5 [facility] T OFFICE 69528 NEPHROLOG HOLLINS OUTPATIEN 5 5 Y LISSETTE T NEW 60 ASSOCIATE MINUTES S [facility] [place] [facility] 5 5 [facility] [place] [facility] 5 5 [facility] OFFICE 95730 [facility] [place] [facility] 5 5 [facility] P 40 MINUT[facility] OFFICE [id number] [facility] 4 4 [place] [facility] 25 PSC MINUTES [facility] [place] [facility] OTHER 4 4 [facility] 4 4 [facility] 4 4 [facility] T OFF[facility] 13813 [facility] 4 4 [facility] 45 [facility]STITUTE MINUT[facility] OFFICE 80004 [facility] [place] [facility] 25 PSC MINUTES OFFICE 20777 [place] [facility] 3 3 ORTHOPAED LIS T VISIT IC & HAND 15 MINUTES OFFICE 81524 [facility] 3 3 [facility] 25 PSC MINUTES [facility] [place] [facility] 3 3 [facility] OFFICE 32694 [place] [facility]PAT[facility] 3 3 ORTHOPAED LIS T VISIT IC & HAND 15 MINUTES [facility] [place] - 3 3 [facility] OFFICE 76657 [facility] NATHAN NATHAN T VISIT 25 MINUTES [facility] [place] [facility] 3 3 [facility] [place] [facility] 3 3 [facility] OFF[facility] 24879 [facility] 2 2 [place] [facility] 25 PSC MINUT[facility] OFFICE 79748 JACKELYN HAYDEN OUTPATIEN 2 2 JAM JAM T VISIT 15 MINUTES [facility] [place] [facility] 2 2 [facility] [place] - 2 2 [facility] OFFICE 21569 [place] [facility] 2 3 ORTHOPAED LIS T NEW 30 IC & HAND MINUTES [facility] - 2 2 [facility] 23613 MICHAEL MICHAEL OUTPATI 2 2 NATHAN NATHAN T VISIT 15 MINUTES [facility] [place] [facility] 2 2 [facility] OFFICE 12582 MICHAEL MICHAEL OUTPATIEN 1 1 NATHAN NATHAN T VISIT 15 MINUTES OFFICE 72975 MICHAEL MICHAEL OUTPATIEN 1 1 NATHAN NATHAN T VISIT 10 MINUTES [facility] 0 0 [facility] 52819 [facility] 25 PSC MINUTES [facility] [place] [facility] 0 [facility] [facility] T OFFICE [id number] [facility] 0 0 ELOISE BALLARDE T VISIT CLINIC 25 PSC MINUTES [facility] 0 0 [facility] T OFFICE [id number] [facility] 0 0 ELOISE Champion T V[facility]IT [facility]INIC 25 PSC MINUTES [facility] 0 0 [facility] T OFFICE [id number] [facility] OUTPATIEN 9 9 ELOISE Champion [facility] 25 PSC MINUTES [facility] 9 9 [facility] T OFFICE [id number] MARLENI MILAN OUTPATIEN 9 9 ELOISE Champion [facility] 25 PSC MINUTES OFFICE [id number] [facility] 9 9 [facility] [place] [facility] 15 PSC MINUTES OFFICE [id number] [facility] OUTRADAMES 9 9 ELOISE Champion T VISIT CLINIC 25 PSC MINUTES OFFICE [id number] ARMAND SANCHEZ 9 9 [place] [facility] [facility] 15 [facility] DAVID - 8 8 [facility] OUTPATIEN [facility] T OFFICE [id number] MICHAEL RODRIGUEZ OUTPATIEN 8 8 [facility] Isaac T VISIT 10 MINUTES OFFICE [id number] MARLENI ACUNA 8 8 [place] [facility] 25 [facility] MINUTES OFFICE [id number] RINA FLYNN OUTPATIEN 8 8 MINNIE HARTMAN T VISIT [facility] 10 MINUTES
--- OUTSIDE RECORDS SUMMARY | 2016-08-02 17:58 | External Medical Summary Rpt ---
Author Author , Organization [employer] Address Unknown Phone Unavailable Care Team Providers Care Cloth Tester Quality Name Role Phone MICHAEL EVANS MICHAEL Unavailable Unavailable NATHAN EVANS MICHAEL Unavailable Unavailable KIP FLORES, Unavailable Unavailable KIP RODRIGUEZ J, Unavailable Unavailable Akira NGUYEN [facility], Unavailable Unavailable [facility], Unavailable Unavailable [facility] Unavailable Unavailable MEDICAL GROUP, [facility] BEITING CLA, BEITING Unavailable Unavailable CLA [employer], Unavailable Unavailable INC, [employer], Unavailable Unavailable INC, [employer] [facility] Unavailable Unavailable [facility], [facility] Unavailable [facility]available [facility], [facility] Unavailable Unavailable [facility], [facility] RUPALI LUCITA, RUPALI Unavailable Unavailable LUCITA ALEX SHA, ALEX Unavailable Unavailable SHA [facility], Unavailable Unavailable [facility] IOANA SHANTA, Unavailable Unavailable IOANA SHANTA DEGNORE LIS, DEGNORE Unavailable Unavailable LIS PELAEZ JASBIR, PELAEZ JASBIR Unavailable Unavailable JACKELYN JACKELYN PEREA Unavailable Unavailable ELIAZAR PEREA JACKELYN Unavailable Unavailable ELIAZAR AHYDEN AND MICHAEL, Unavailable Unavailable PSC, [facility] MICHAEL, PSC GOODMAGIW THO, Unavailable Unavailable KOBI DUPREE, Unavailable Unavailable KOBI MILAN ITALIA RHO, ITALIA Unavailable Unavailable RHO [facility] Unavailable Unavailable INC, [facility] EVA SYE, EVA Unavailable Unavailable SYE [facility] Unavailable Unavailable [facility], [facility] Unavailable Unavailable & HAND, [facility] Unavailable Unavailable & HAND, [facility] Unavailable Unavailable ASSOCIAT, [facility] MINNIE FLYNN, Unavailable Unavailable MINNIE FLYNN KIELAR Unavailable Unavailable ANG LEON, Unavailable Unavailable ANG ESTRELLA STEVE, KOCHU, Unavailable Unavailable [facility], Unavailable Unavailable [facility], [facility]available Unavailable [facility] & Unavailable Unavailable MEDICAL SUPP, [facility] & Unavailable Unavailable MEDICAL SUPP, [facility] Unavailable [facility]available LABORATO, [facility] Unavailable Unavailable [facility], [facility] Unavailable Unavailable LABORATORY, [facility] Unavailable Unavailable [facility] Unavailable Unavailable [facility] [employer]ATCH[facility]ALS[facility] PITA, Unavailable Unavailable MATCHESBHARATA PITA YUMIKO SEQUEIRA, Unavailable Unavailable YUMIKO SEQUEIRA [facility] Unavailable Unavailable OF [place]EN, [facility] Unavailable Unavailable [facility], [facility] Unavailable Unavailable PSC, [facility] Unavailable Unavailable INCORPORAT, [facility] Unavailable Unavailable INCORPORAT, [facility] HOLLINS, HOLLINS Unavailable Unavailable HOLLINS LISSETTE, HOLLINS Unavailable Unavailable LISSETTE ELISSA FLOWERS Unavailable Unavailable [id number], Unavailable Unavailable [id number] SPRAGUE, SPRAGUE Unavailable Unavailable SPRAGUE AGUSTINA, SPRAGUE Unavailable Unavailable AGUSTINA [facility] Unavailable Unavailable PENG, [facility], [facility] Unavailable [facility]available CLINIC P, [facility] P WAESPE GERALDO, WAESPE Unavailable Unavailable GERALDO [...] Status E1021 TYPE 1 05-27-2016 [facility] [place] [facility] P W/DIABETIC NEPHROPATHY E1022 TYPE 1 05-27-2016 [facility] [place] [facility] P W/DIAB CHRON KIDNEY DZ E1039 TYPE 1 DIAB 05-27-2016 THE NEW MELLITUS [place] W/OTH DIAB CLINIC P OPHTHALMIC COMP E1065 TYPE 1 05-27-2016 THE NEW DIABETES [place] [facility] P WITH HYPERGLYCEM IA E669 OBESITY 05-27-2016 THE NEW UNSPECIFIED [facility] [facility] P E785 HYPERLIPIDE 05-27-2016 THE NEW PHYLLIS [place] UNSPECIFIED CLINIC P I10 ESSENTIAL 05-27-2016 THE NEW PRIMARY [place] HYPERTENSIO CLINIC P N R809 PROTEINURIA 05-25-2016 [facility] 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 [place] WITHOUT COMPLICATIO NS N189 CHRONIC 05-10-2016 [facility] DISEASE OF [place] UNSPECIFIED E109 TYPE 1 05-05-2016 [facility] DI[facility]ES & MELLITUS MEDICAL WITHOUT SUPP COMPLICATIO NS I129 HYPERTENSIV 04-26-2016 [facility] CKD [facility]/STAGE 1-4 [facility] CKD OR UNS CKD N3001 ACUTE 02-10-2016 JACKELYN AND CYSTITIS MICHAEL, WITH PSC HEMATURIA R350 FREQUENCY 02-10-2016 JACKELYN AND OF MICHAEL, MICTURITION PSC J0140 ACUTE 01-21-2016 [facility] MEDICAL UNSPECIFIED GROUP E1040 TYPE 1 01-01-2016 THE NEW DIABETES [place] [facility] P W/DIAB NEUROPATHY UNS Z23 ENCOUNTER 12-04-2015 [facility] IMMUNIZATIO #591 N J069 ACUTE UPPER 11-10-2015 JACKELYN AND MICHAEL, RESPIRATORY PSC INFECTION UNSPECIFIED J302 OTHER 11-10-2015 JACKELYN AND SEASONAL MICHAEL, ALLERGIC PSC RHINITIS N390 URINARY 10-21-2015 [facility] INFECTION INCORPORAT SITE NOT SPECIFIED E1340 OTHER SPEC 10-17-2015 [facility] W/DIABETIC INC NEUROPATHY UNSPECIFIED D519 VITAMIN B12 09-29-2015 [facility] UNSPECIFIED E1142 TYPE 2 09-29-2015 [place] [facility] MELLITUS [facility] W/DIAB POLYNEUROPA THY E1042 TYPE 1 04-30-2015 [facility] DI[facility]ES [place] [facility] P W/DIAB POLYNEUROPA THY N183 CHRONIC 02-10-2015 [facility] DISEASE OF [place] STAGE 3 MODERATE G85067 OTHER 11-25-2014 [place] [facility] TENOSYNOVIT IS RT ANKLE & FOOT 45155 TENOSYNOVIT 11-13-2014 JAROD IS OF FOOT BRACING, AND ANKLE INC 07944 PLANTAR 11-13-2014 [place] [facility] FIBROMATOSI ASSOCIAT S 4011 ESSENTIAL 11-11-2014 JACKELYN AND HYPERTPRESTON RODRIGUEZ, N, BENIGN PSC 93379 PAIN IN 11-11-2014 [facility] [place] [facility], RADIOLOGY ANKLE AND FOOT 7242 LUMBAGO 11-11-2014 IVELISSE, PSC 7295 PAIN IN 11-11-2014 [facility] [place] SOFT [facility] TISSUES OF LIMB 36705 SWELLING OF 11-11-2014 [facility] [place] LIMB [facility] 7840 HEADACHE 11-11-2014 IVELISSE, PSC 9597 INJURY 11-11-2014 JACKELYN AND OTHER&UNSPE MICHAEL, CIFIED KNEE PSC LEG ANKLE&FOOT 93025 DIAB 11-06-2014 JACKELYN AND W/RENAL MICHAEL, MANIFESTS PSC TYPE I [JUV TYPE] UNCNTRL 5990 URINARY 11-06-2014 JACKELYN AND TRACT MICHAEL, INFECTION PSC SITE NOT SPECIFIED 55386 DIAB 10-24-2014 THE NEW W/RENAL [place] [facility]INIC P TYPE I [JUV] NOT UNCNTRL 07656 DIAB 10-24-2014 THE NEW W/OPHTH [place] MANIFESTS CLINIC P TYPE I [JUV] NOT UNCNTRL 57672 BACKGROUND 10-24-2014 THE NEW DIABETIC [place] RETINOPATHY CLINIC P 5853 CHRONIC 10-24-2014 THE NEW KIDNEY [place] DISEASE CLINIC P STAGE III (MODERATE) 4019 UNSPECIFIED 10-07-2014 [facility] HYPERTENSIO OF [place] N 7910 PROTEINURIA 10-07-2014 [facility] [place] 42488 DIAB W/O 09-30-2014 [facility] COMP TYPE I MEDICAL [JUV] NOT STATED UNCNTRL 14454 HTN CKD UNS 09-30-2014 [place] [facility] STAGE I HOSPITAL THRU STAGE IV/UNS 5859 CHRONIC 09-30-2014 [place] KIDNEY [facility] DISEASE [facility] UNSPECIFIED 73939 DIAB W/O 09-17-2014 [facility] COMP TYPE [facility] II/UNS NOT INC STATED UNCNTRL 11391 DIAB 07-11-2014 THE NEW W/NEURO [place] [facility]IN[facility] P TYPE I [JUV TYPE] UNCNTRL 3572 POLYNEUROPA 07-11-2014 THE NEW THY IN [place] DIABETES CLINIC P 59948 NEPHRITIS&N 07-11-2014 THE NEW EPHROPATHY- [facility] [place] [address] MIGRAINE 05-27-2014 NEPHROLOGY UNSP W/O ASSOCIATES INTRACT W/O OF AKREN STATUS MIGRAINOSUS 5849 ACUTE 05-27-2014 [facility] FAILURE OF [place] UNSPECIFIED 46276 DIAB W/O 04-24-2014 [facility] MENTION [facility] COMP TYPE I HOSPITAL [JUV TYPE] UNCNTRL 2724 OTHER AND 04-24-2014 [facility] HOSPITAL HYPERLIPIDE PHYLLIS 73325 DIAB 03-13-2014 THE NEW W/OPHTH [place] MANIF[facility]S [facility]INIC P TYPE I [JUV TYPE] UNCNTRL 36691 NUCLEAR 10-12-2013 [facility] 3674 PRESBYOPIA 10-12-2013 [facility] 07737 APHAKIA 10-12-2013 [facility] 08173 DIAB W/O 08-13-2013 [place] MENTION [facility]INIC COMP TYPE LABORATO II/UNS TYPE UNCNTRL 3669 UNSPECIFIED 08-02-2013 [facility] [place] [facility] PENG V5867 LONG-TERM 08-02-2013 [facility] USE OF [facility] INSULIN PENG 79935 DIAB 06-01-2013 [facility] TYPE II/UNS NOT UNCNTRL 00520 NONPROLIFER 06-01-2013 [facility] ATIVE [place] [facility] [place]SC RETINOPATHY NOS 69842 POSTERIOR 06-01-2013 [facility] SUBCAPSULAR [place] POLAR CLINIC PSC SENILE CATARACT 19395 DERMATOCHAL 06-01-2013 [facility] ASIS [facility] PSC 57886 DIAB 11-15-2012 [place] W/NEURO ORTHOPAEDIC MANIFESTS & HAND TYPE II/UNS NOT UNCNTRL 3558 UNSPECIFIED 11-15-2012 [place] [facility] MONONEURITI & HAND S OF LOWER LIMB 7135 ARTHROPATHY 11-15-2012 [place] ASSOC[facility]ATED [facility]THOPAEDIC & HAND W/NEUROLOGI NETO DISORDERS V5883 ENCOUNTER 09-25-2012 [facility] DRUG MONITORING 7823 EDEMA 09-20-2012 [place] [facility] HAND 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 2469 UNSPECIFIED 05-24-2012 [place] DISORDER [facility] 58948 NEPHROTIC 01-27-2012 [facility] SYND W/OTH [place] PATHAL LES CLINIC PSC DZ CLASS ELSW 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 6259 UNSPEC 07-05-2011 NEW SYMPTOM [place] [facility]INIC PSC W/FEMALE GENITAL ORGANS V7231 ROUTINE 06-23-2011 [facility] GYNECOLOGIC [place] AL [facility] PSC EXAMINATION V762 SCREENING 06-23-2011 [place] [facility] MALIGNANT LABORATO NEOPLASM OF THE CERVIX V7612 OTHER 05-04-2011 [place] SCREENING MEDICAL MAMMOGRAM IMAGING ASS 3670 HYPERMETROP 04-23-2011 [facility] IA [facility] PSC 4619 ACUTE 04-16-2011 MICHAEL NATHAN SINUSITIS, UNSPECIFIED 58521 URINARY 12-10-2010 MICHAEL NATHAN FREQUENCY 462 ACUTE 09-23-2010 MICHAEL NATHAN PHARYNGITIS 4659 ACUTE URIS 09-23-2010 MICHAEL NATHAN OF UNSPECIFIED SITE 2134 BENIGN 02-16-2010 [facility] [place] [facility] SCAPUL[place] G BONES UPPER LIMB 35026 CORTICAL 10-03-2009 [facility] SENILE [place] CATARACT CLINIC PSC 84694 CALCANEAL 01-13-2009 [facility] [place] [facility]UR [facility] 5999 UNSPECIFIED 05-01-2007 MICHAEL, DISORDER KIP L OF URETHRA&URI NARY TRACT 25077 DIAB 02-27-2007 [facility] W/NEURO [place] [facility]IF[facility]INIC PSC TYPE I [JUV] NOT UNCNTRL Immunization Name Date Route CVX Reacti Commen Provid Is Given on t er Refuse d PCV13 133 [facility] No VACCIN 2015 RT E FOR PHARMA INTRAM CY USCULA #591 R USE IIV 135 [facility] No VACCIN 2016 RT E PHARMA PRESER CY V FREE #591 INCREA SED AG CONTEN T IM Procedures Procedure DOS Code Location Performer Comment GLUC BLD 88030 [facility] MNTR 7 [place] [facility] P CLEARED FDA SPEC HOME USE HEMOGLOBI 70162 [facility] [place] N 7 [place] [facility] P SHAMAR A1C BASIC 43573 [facility] METABOLIC [address] [place] [address] CALCIUM TOTAL COLLECTIO 00685 [facility] N VENOUS 7 [facility] VENIPUNCT URE BLD GLU A4253 [facility] TEST/REAG 7 DIABETES DIABETES T STRIPS & MEDICAL & MEDICAL HOME BLD SUPP SUPP GLU MON-50 LANCETS A4259 [facility] PER BOX 7 DIABETES DIABETES OF 100 & MEDICAL & MEDICAL SUPP SUPP LIPID 91128 [facility] 7 [facility] URNLS DIP [address] [facility] HOSPITAL LET REAGENT AUTO MICROSCOP Y CULTURE 17413 [facility] BACTERIAL 7 [facility] QUANTTATI [place] [address] [facility] PHOSPHORU 7 [facility] INORGANIC COLLECTIO 08009 [facility] N VENOUS 7 [facility] VENIPUNCT URE COMPREHEN 01368 [facility] SIVE [address] [place] [address] PANEL CREATININ 93762 [facility] E OTHER 7 [facility] [place] [address] [facility] FREE 7 [facility] [place] [place] [address] [facility] THYROID 7 [facility] NG HORMONE TSH ALBUMIN 42600 [facility] URINE 7 [facility] MIN QUANTIATI VE BLD GLU A4253 [facility] TEST/REAG 6 DIABETES DIABETES T STRIPS & MEDICAL & MEDICAL HOME BLD SUPP SUPP GLU MON-50 NORMAL A4256 [facility] LOW AND 6 DIABETES DIABETES HIGH & MEDICAL & MEDICAL CALIBRATO SUPP SUPP R SOLUTION/ CHIPS LANCETS A4259 [facility] PER BOX 6 DIABETES DIABETES OF 100 & MEDICAL & MEDICAL SUPP SUPP HOME E0607 [facility] BLOOD 6 DIABETES DIABETES GLUCOSE & MEDICAL & MEDICAL MONITOR SUPP SUPP URNLS DIP 93604 JACKELYN RODRIGUEZ 6 AND NATHAN STICK/TAB KALEB RODRIGUEZ RGNT PSC NON-AUTO W/O MICRSCP IIV 61295 [facility] VACCINE 6 PHARMACY PHARMACY PRESERV #591 #591 FREE INCREASED AG CONTENT IM ADMINISTR G0008 [facility] ATION OF 6 PHARMACY PHARMACY INFLUENZA #591 #591 VIRUS VACCINE PCV13 18615 [facility] VACCINE 6 PHARMACY PHARMACY FOR [...] SPRING-PO A4258 [facility] ARRIVA WERED 6 MEDICAL ASSEMBLY OPERATOR FOR LANCET EACH CULTURE 64386 [facility] BCT 6 DIAGNOSTI DIAGNOSTI ISOL&PRSM CS CS PTV ID INCORPORA INCORPORA ISOLATE T T EA URINE CULTURE 87369 [facility] BACTERIAL 6 DIAGNOSTI DIAGNOSTI CS CS QUANTTATI INCORPORA INCORPORA VE COLONY T T COUNT URINE DIAB ONLY A5500 [facility] FIT CSTM 6 [facility] PREP&SPL INC INC SHOE MX DNSITY INSRT FOR DIAB A5512 [facility] ONLY MX 6 [facility] DNSITY INC INC INSRT DIR FORMD PRFAB EA ELECTROLY 23186 [facility] TE PANEL 6 [facility] LIPID 60597 [facility] PANEL 6 [facility] HEPATIC 27983 [facility] FUNCTION 6 [facility] CYANOCOBA 75644 [facility] JOSE [address] [place] [address] B-12 [place] [address] [facility] PHOSPHORU 6 [facility] INORGANIC COLLECTIO 76268 [facility] N VENOUS 6 [facility] VENIPUNCT URE CREATININ 88185 [facility] E OTHER 6 [facility] [place] [address] [facility] FREE 6 [facility] [place] [address] [facility] THYROID 6 [facility] NG HORMONE TSH PROTEIN 82598 [facility] TOTAL 6 [facility] HOSPITAL REFRACTOM ETRY URINE BLD GLU [...] BOX 6 MEDICAL MEDICAL OF 100 LIPID 15513 [facility] PANEL 6 [facility] COLLECTIO 05820 [facility] N VENOUS 6 [facility] VENIPUNCT URE COMPREHEN 93065 [facility] TUTTLE SIVE 6 [facility] PANEL CREATININ 06758 PARAG SHANAKIMMY E OTHER 6 [facility] [place] [place] [address] PAR[place] FREE 6 [facility] [place] [place] [address] [facility] THYROID 6 [facility] [place] [address] [facility] URINE 6 [facility] ALBUMIN 34458 [facility] URINE 5 [facility] MIN QUANTIATI VE COLLECTIO 68639 [facility] N VENOUS 5 [facility] VENIPUNCT URE RENAL 67639 [facility] FUNCTION 5 [facility] URNLS DIP 89631 [facility] 5 [facility] LET REAGENT AUTO MICROSCOP Y [...] SPRING-PO A4258 ARRIVA ARRIVA WERED 5 MEDICAL ASSEMBLY OPERATOR FOR LANCET EACH WALKING L4360 [facility] BOOT 5 BRACING, BRACING, PNEUMATC INC INC &/ VACUUM PREFAB CUSTM FIT RADEX 13848 [facility] [place] ANKLE 5 RADIOLOGY RHO COMPLETE MINIMUM 3 VIEWS RADEX 92152 [facility] [place] FOOT 5 RADIOLOGY RHO COMPLETE MINIMUM 3 VIEWS GLUC BLD 77580 JACKELYN RODRIGUEZ GLUC MNTR 5 AND NATHAN RODRIGUEZ, CLEARED PSC FDA SPEC HOME USE ALBUMIN 14065 [facility] [place] URINE 5 [facility] MIN QUANTIATI VE BLD GLU A4253 [facility] TEST/REAG 5 MEDICAL MEDICAL T STRIPS HOME BLD GLU MON-50 NORMAL A4256 [facility] LOW AND 5 MEDICAL MEDICAL HIGH CALIBRATO R SOLUTION/ CHIPS LANCETS A4259 [facility] AR[facility]IV[facility] PER BOX 5 MEDICAL MEDICAL OF 100 URNLS DIP 22368 [facility] 5 [facility] LET REAGENT AUTO MICROSCOP Y RENAL 05991 [facility] CASTELLANO FUNCTION 5 [facility] BLOOD 74594 [place] NONA COUNT [address] [facility] AUTO&AUTO DIFRNTL WBC FOR DIAB A5512 [...] BOX 5 MEDICAL MEDICAL OF 100 PROTEIN 65175 [facility] TOTAL 5 [facility] REFRACTOM ETRY URINE CULTURE 71844 [facility] BACTERIAL [address] [place] [address] QUANTTATI VE COLONY COUNT URINE COLLECTIO 56164 [facility] N VENOUS 5 [facility] VENIPUNCT URE CREATININ 77831 [facility] SHANAKIMMY E OTHER 5 [facility] RENAL 80414 [facility] [place] FUNCTION [address] [place] [address] URNLS DIP [address] LET REAGENT AUTO MICROSCOP Y DUP-SCAN 24421 ADRIANO ADRIANO ARTL LEEROY 5 DEN DEN ABDL/PEL/ SCROT&/[place] [address] NEPHROLOG GURVINDER PEDROZA 5 Y LISSETTE TONEAL ASSOCIATE REAL TIME S OF [place] W/IMAGE COMPLETE RENAL 79560 [facility] SHARIFAON FUNCTION [address] [place] [address] BLOOD 31499 [facility] SALDANAURBON COUNT [address] [place] [address] AUTOMATED URNLS DIP 63119 [facility] [address] LET REAGENT AUTO MICROSCOP Y PROTEIN 63328 [facility] TOTAL 5 [facility] REFRACTOM ETRY URINE BLOOD 65319 [facility] CASTELLANOON COUNT [address] [place] [address] MCRSCP W/MNL DIFRNTL WBC COUNT COLLECTIO 13269 [facility] N VENOUS 5 [facility] HOSPITAL VENIPUNCT URE CREATININ 69029 [facility] E OTHER 5 [facility]OSPITAL COLLECTIO 61011 [facility] N VENOUS 5 [facility] VENIPUNCT URE COMPREHEN 16117 [facility] SIVE 5 [facility] PANEL CREATININ 25390 [facility] E OTHER 5 [facility] [place] [place] [address] [facility] FREE 5 [facility] [place] [address] [facility] THYROID 5 [facility] NG HORMONE TSH ALBUMIN 92934 [facility] URINE 5 [facility] MIN QUANTIATI VE LIPID 23252 [facility] PANEL 5 [facility] LANCETS A4259 ARRIVA ARRIVA PER BOX 5 [...] SPRING-PO A4258 ARRIVA ARRIVA WERED 5 MEDICAL ASSEMBLY OPERATOR FOR LANCET EACH BLD GLU A4253 ARRIVA [...] SPRING-PO A4258 ARRIVA ARRIVA WERED 4 MEDICAL ASSEMBLY OPERATOR FOR LANCET EACH BIFOCL V2203 [facility] [...] INC INC SHOE MX DNSITY INSRT COLLECTIO 47314 [facility] N VENOUS 4 CLINIC CLINIC BLOOD LABORAT[place] [address] [facility] FREE [facility] [place] [address] [facility] THYROID 4 [facility] STIMULATI LABORATO LABORATO NG HORMONE TSH BLOOD 69369 [facility] COUNT 4 [facility] COMPLETE LABORATO LABORATO AUTOMATED GLUC BLD 27846 [facility] [place] GLUC MNTR 4 [place] [facility] DEV [facility] CLEARED PSC FDA SPEC HOME USE HEMOGLOBI 16288 [place] N 4 [place] [facility] GLYCOSYLA CLINIC SHAMAR A1C PSC LIPID 33305 PARAG TUTTLE PANEL 4 [facility] COLLECTIO 07552 NONACAROL NONACAROL N VENOUS 4 [facility] VENIPUNCT URE COMPREHEN 87371 NONACAROL PARAG SIVE [address] [facility] PANEL CREATININ 83569 PARAG TUTTLE E OTHER 4 [facility] PROTEIN 09601 [facility] TOTAL 4 [facility] REFRACTOM ETRY URINE INJECTION J0171 [place] [address] [place] ADRENALIN PENG PENG EPINEPHRI NE 0.1 MG ANESTHESI 33298 [facility] BOWERS A EYE 4 [facility] [place] ANESTHESI SURGERY A PSC POSTERIOR V2632 [facility] CHAMBER 4 [place] INTRAOCUL PENG PENG AR LENS INJECTION J2001 [place] [address] [place] LIDOCAINE PENG PENG HCL INTRAVENO US INFUS 10 MG INJECTION J2250 [place] [address] [place] MIDAZOLAM PENG PENG HCL PER 1 MG CATARACT 14888 [facility] 4 EYE INSERTION INSTITUTE OF LENS OPH BMTRY 81327 [facility] 4 EYE ECHOGRAPY INSTITUTE A-SCAN IO LENS PWR NETO BLD GLU A4253 ARRIVA ARRIVA TEST/REAG 4 MEDICAL MEDICAL T STRIPS HOME BLD GLU MON-50 LANCETS A4259 ARRIVA ARRIVA PER BOX 4 MEDICAL [facility] 100 NORMAL A4256 ARRIVA ARRIVA LOW AND 4 MEDICAL MEDICAL HIGH CALIBRATO R SOLUTION/ CHIPS CATARACT 80597 [facility] REMOVAL 4 [place] INSERTION PENG PENG OF LENS INJECTION J2250 [place] [address] [place] MIDAZOLAM PENG PENG HCL PER 1 MG ANESTHESI 63069 [facility] 4 LTH [place] LENS ANESTHESI SURGERY A PSC INJECTION J0171 [facility] 4 [place] ADRENALIN PENG PENG EPINEPHRI NE 0.1 MG POSTERIOR V2632 [facility] CHAMBER 4 [place] INTRAOCUL PENG PENG AR LENS INJECTION J2001 [place] [address] [place] LIDOCAINE PENG PENG HCL INTRAVENO US INFUS 10 MG OPH BMTRY 86087 [facility] [place] US 4 EYE ECHOGRAPY INSTITUTE A-SCAN IO LENS PWR NETO OPH BMTRY 62805 [facility] 4 [facility] ECHOGRAPY CLINIC A-SCAN PSC IO LENS PWR NETO OPHTH 46530 [facility] 4 [facility] XM&EVAL CLINIC COMPRHNSV PSC ESTAB PT 1/> DETERMINA 37045 [facility] T[facility] 4 [facility] REFRACTIV CLINIC E STATE PSC LANCETS A4259 ARRIVA ARRIVA PER BOX 4 MEDICAL MEDICAL OF 100 BLD GLU A4253 ARRIVA ARRIVA TEST/REAG 4 MEDICAL MEDICAL T STRIPS HOME BLD GLU MON-50 NORMAL A4256 ARRIVA ARRIVA LOW AND 4 MEDICAL MEDICAL HIGH CALIBRATO R SOLUTION/ [facility] CENTER A4258 ARRIVA ARRIVA WERED 4 MEDICAL ASSEMBLY OPERATOR FOR LANCET EACH REPL JESSE A4235 ARRIVA ARRIVA LITHIUM 4 MEDICAL MEDICAL MED NECES JOANN BG MON OWN PT EA GLUC BLD 48237 [place] GLUC MNTR 3 [facility] DEV CLINIC CLEARED [facility] FDA SPEC HOME USE HEMOGLOBI 69113 [place] N 3 [facility] GLYCOSYLA CLINIC SHAMAR A1C PSC LANCETS A4259 [...] INC INC SHOE MX DNSITY INSRT RADIOLOGI 07191 [place] DEGNORE C 3 ORTHOPAED LIS EXAMINATI IC & HAND ON FOOT 2 VIEWS BLD GLU A4253 ARRIVA ARRIVA TEST/REAG 3 MEDICAL MEDICAL T STRIPS HOME BLD GLU MON-50 LANCETS A4259 ARRIVA ARRIVA PER BOX 3 MEDICAL MEDICAL OF 100 BLD GLU A4253 [facility] TEST/REAG 3 PHARM PHARM T STRIPS #3914 #3914 HOME BLD GLU MON-50 GLUC BLD 35487 MARLENI MILAN GLUC MNTR 3 [facility] DEV CLINIC CLEARED PSC FDA SPEC HOME USE HEMOGLOBI 15017 NEW ESTEBANW N 3 [place] [facility]YCOSYLA CLINIC SHAMAR A1C PSC BASIC 42624 [facility] METABOLIC 3 CLINIC CLINIC PANEL LABORATO LABORATO CALCIUM TOTAL COLLECTIO 87057 [facility] N VENOUS 3 CLINIC CLINIC BLOOD LABORATO LABORATO VENIPUNCT URE COLLECTIO 96651 [facility] N VENOUS 3 [facility] VENIPUNCT URE TRANSFERA 46713 [facility] SE 3 [facility] AMINO ALT SGPT LIPID 16426 [facility] PANEL 3 [facility] RADIOLOGI 41407 [place] DEGNORE C 3 ORTHOPAED LIS EXAMINATI IC & HAND ON FOOT 2 VIEWS FOR DIAB A5513 THE THE ONLY MX 3 HEALTHY HEALTHY DNSITY FOOT FOOT INSRT CENTER CENTER CSTM MOLD CSTM EA [facility] A4258 CANYON CANYON WERED 3 HEALTHCAR HEALTHCAR [...] LLC HOME BLD GLU MON-50 WALKING L4386 [facility] BOOT 3 ORTHOPAED ORTHOPAED NON-PNEUM IC & HAND IC & HAND ATIC PREFAB CUSTOM FIT RADIOLOGI 56284 [place] DEGNORE C 3 ORTHOPAED LIS EXAMINATI IC & HAND ON FOOT 2 VIEWS MRI LOWER 47855 [facility] EXTREM 3 [facility] JT W/O CONTR MATRL RADEX 70508 [facility] [place] JUNI MAT FOOT 3 RADIOLOGY COMPLETE MINIMUM 3 VIEWS CREATININ 90946 [place] E OTHER 3 [facility] [address] [place] FREE 3 CLINIC CLINIC THYROXINE LABORATO LABORATO COLLECTIO 15105 [place] N VENOUS 3 [facility]INIC CLINIC BLOOD LABORATO LABORATO VENIPUNCT URE PROTEIN 81752 [place] TOTAL 3 CLINIC CLINIC XCPT LABORATO LABORATO REFRACTOM ETRY URINE GONADOTRO 29167 [place] PIN 3 CLINIC CLINIC FOLLICLE LABORATO LABORATO STIMULATI NG HORMONE LIPID 06014 [facility] PANEL 3 CLINIC CLINIC LABORATO LABORATO LIPID 06407 [facility] PANEL 3 [facility] PROTEIN 54032 [facility] TOTAL 3 [facility] REFRACTOM ETRY URINE COLLECTIO 58707 [facility] N VENOUS 3 [facility] VENIPUNCT URE COMPREHEN 73057 [facility] SIVE [address] [facility] PANEL CREATININ 69797 [facility] E OTHER 3 [facility] [place] [address] [facility] THYROID 3 [facility] NG HORMONE TSH BLD GLU A4253 LIBERTY LIBERTY TEST/REAG 3 MEDICAL MEDICAL T STRIPS SUPPLY SUPPLY HOME [employer] GLU MON-50 LANCETS A4259 LIBERTY LIBERTY PER BOX 3 Whim SUPPLY SUPPLY [employer] GLUC BLD 20217 [place] GLUC MNTR 2 [facility] DEV CLINIC CLEARED [facility] FDA SPEC HOME USE HEMOGLOBI 82511 [place] N 2 [facility] GLYCOSYLA CLINIC SHAMAR A1C PSC BLD GLU A4253 LIBERTY LIBERTY TEST/REAG 2 MEDICAL MEDICAL T STRIPS SUPPLY SUPPLY HOME [employer] INC[employer] 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 LANCET EACH LANCETS A4259 LIBERTY LIBERTY PER BOX 2 [employer] SUPPLY SUPPLY INC. INC. BLD GLU A4253 LIBERTY LIBERTY TEST/REAG 2 MEDICAL MEDICAL T STRIPS SUPPLY SUPPLY HOME BLD INC. INC. GLU MON-50 LIPID 94861 [facility] PANEL 2 [facility] HEPATIC 37830 [facility] FUNCTION 2 [facility] CREATINE 19871 [facility] KINASE 2 [facility] COLLECTIO 28600 [facility] N VENOUS 2 [facility] VENIPUNCT URE COMPREHEN 80636 [facility] SIVE 2 [facility] PANEL LIPID 12656 [facility] PANEL 2 [facility] BLD GLU A4253 LIBERTY LIBERTY TEST/REAG 2 MEDICAL MEDICAL T STRIPS SUPPLY SUPPLY HOME BLD INC. INC. GLU MON-50 LANCETS A4259 LIBERTY LIBERTY PER BOX 2 MEDICAL MEDICAL OF 100 SUPPLY SUPPLY INC. INC. NORMAL A4256 LIBERTY LIBERTY LOW AND 2 MEDICAL MEDICAL HIGH SUPPLY SUPPLY [employer] INC. R SOLUTION/ CHIPS REPL JESSE A4235 LIBERTY LIBERTY LITHIUM 2 MEDICAL MEDICAL MED NECES SUPPLY SUPPLY [employer] [address] NEW ALEX TRANSVAGI 2 [place] SHA NAL [facility]INIC PSC CERV/VAGI G0101 [facility] [place] NAL 2 [place] CLA [facility]ER [facility]IN[facility] SCR; PSC PELV&CLIN BREAST EXAM SCR G0145 [facility] CYTOPATH 2 CLINIC CLINIC CERV/VAG LABORATO LABORATO SCR AUTO&MNL RSCR PHYS SCREEN Q0091 [place] PAP 2 [place] CLA SMEAR; CLINIC OBTAIN PSC PREP &C ONVEY TO LAB BASIC 90562 [facility] METABOLIC 2 CLINIC CLINIC PANEL LABORATO LABORATO CALCIUM TOTAL COLLECTIO 84903 [facility] N VENOUS 2 CLINIC CLINIC BLOOD LABORATO LABORATO VENIPUNCT URE SPRING-PO A4258 LIBERTY 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 FOR LANCET EACH BLD GLU A4253 LIBERTY LIBERTY TEST/REAG 2 MEDICAL MEDICAL T STRIPS SUPPLY SUPPLY HOME BLD GLU MON-50 SCREENING G0202 DAVID HERNANDEZ 2 [facility] H[facility] MEM HOSP MAMMOGRAP INC INC HY MORENO INCL CAD WHEN PERFORMD - 33661 ANUSHA TRIPLETT AIDED 2 MEDICAL SHANTA DETECTION IMAGING ASS SCREENING MAMMOGRAP HY DETERMINA 16224 [facility] 2 [place] GERALDO REFRACTIV CLINIC E STATE PSC OPHTH 63500 [facility] 2 [place] GERALDO XM&EVAL CLINIC COMPRHNSV PSC ESTAB PT 1/> INJECTION J0696 MICHAEL MICHAEL 2 NATHAN NATHAN CEFTRIAXO NE SODIUM PER 250 MG LIPID 58616 [facility] PANEL 2 [facility] COLLECTIO 16755 [facility] N VENOUS 2 [facility] VENIPUNCT URE COMPREHEN 10126 [facility] SIVE [address] [facility] [place] [address] [facility] THYROID 2 [facility] NG HORMONE TSH CREATININ 66443 [facility] E OTHER 2 [facility]INIC [facility]INIC SOURCE LABORATO LABORATO BLD GLU A4253 LIBERTY LIBERTY TEST/REAG 2 MEDICAL MEDICAL T STRIPS SUPPLY SUPPLY HOME BLD GLU MON-50 URNLS DIP 56785 [facility] 2 CLINIC CLINIC STICK/TAB LABORATO LABORATO LET REAGENT AUTO MICROSCOP Y PROTEIN 83749 [facility] TOTAL 2 CLINIC CLINIC XCPT LABORATO LABORATO REFRACTOM ETRY URINE URNLS DIP 59852 MICHAEL MICHAEL 1 NATHAN NATHAN STICK/TAB LET RGNT NON-AUTO W/O MICRSCP BLD GLU A4253 LIBERTY LIBERTY TEST/REAG 1 MEDICAL MEDICAL T STRIPS SUPPLY SUPPLY HOME BLD GLU MON-50 OPHTH 31486 [facility] 1 [place] GERALDO XM&EVAL CLINIC COMPRHNSV PSC ESTAB PT [...] SUPPLY SUPPLY CALIBRATO R SOLUTION/ CHIPS OPHTH 34878 [facility] 1 [place] GERALDO XM&EVAL CLINIC COMPRHNSV PSC ESTAB PT 1/> BLD GLU A4253 LIBERTY LIBERTY TEST/REAG 1 MEDICAL MEDICAL T STRIPS SUPPLY SUPPLY HOME BLD GLU MON-50 LANCETS A4259 LIBERTY LIBERTY PER BOX 1 [facility] MEDICAL OF 100 [place] [address] LABONE OF LABONE OF SURG 1 [facility] PATHOLOGY GROSS&QUITA ROSCOPIC EXAM SCREENING G0202 [place] IOANA 0 MEDICAL SHANTA MAMMOGRAP IMAGING HY MORENO ASS INCL CAD WHEN PERFORMD COMPUTER- 21026 [place] IOANA AIDED 0 MEDICAL SHANTA DETECTION IMAGING ASS SCREENING MAMMOGRAP HY BLD GLU A4253 LIBERTY LIBERTY TEST/REAG 0 MEDICAL MEDICAL T STRIPS SUPPLY SUPPLY HOME BLD GLU MON-50 LANCETS A4259 LIBERTY LIBERTY PER BOX 0 MEDICAL [facility] OF 100 SUPPLY SUPPLY GLUC BLD 69932 [place] GLUC MNTR 0 [facility] DEV CLINIC CLEARED PSC FDA SPEC HOME USE HEMOGLOBI 00413 [place] N 0 [facility] GLYCOSYLA CLINIC SHAMAR A1C PSC PROTEIN 07732 [facility] TOTAL 0 CLINIC CLINIC XCPT LABORATO LABORATO REFRACTOM ETRY URINE CREATININ 84938 [facility] E OTHER 0 CLINIC CLINIC SOURCE LABORATO LABORATO COLLECTIO 54665 NONAON PARAG N VENOUS 0 [facility] VENIPUNCT URE COMPREHEN 84682 [facility] SIVE 0 [facility] [place] [address] [facility] THYROID 0 [facility] NG HORMONE TSH LIPID 02295 [place] PANEL 0 [facility] OPHTH 13555 [facility] MEDICAL 0 [place] GERALDO XM&EVAL CLINIC COMPRHNSV PSC ESTAB PT 1/> BLD GLU A4253 LIBERTY LIBERTY TEST/REAG 0 MEDICAL MEDICAL T STRIPS SUPPLY SUPPLY HOME BLD GLU MON-50 LANCETS A4259 LIBERTY LIBERTY PER BOX 0 MEDICAL MEDICAL OF 100 SUPPLY SUPPLY HEMOGLOBI 35477 MARLENI YOON, N 0 [place] [facility]IC[facility] GLYCOSYLA CLINIC SHAMAR A1C PSC GLUC BLD 54743 MARLENI KOCHU, GLUC MNTR 0 [place] NICOLÁ[facility] DEV CLINIC CLEARED [facility] FDA SPEC HOME USE LIPID 93162 [place] PANEL 0 [facility] COLLECTIO 40286 [facility] 0 [facility] VENIPUNCT URE COMPREHEN 35083 [facility] SIVE [address] 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 SUPPLY FOR LANCET EACH BASIC 82006 [facility] METABOLIC 0 CLINIC CLINIC PANEL LABORATOR LABORATOR CALCIUM Y Y TOTAL GLUC BLD 41507 MARLENI POWELLENOW, GLUC MNTR 0 [facility] Champion DEV CLINIC CLEARED [facility] FDA SPEC HOME USE HEMOGLOBI 24032 MARLENI ORELLANAW, N 0 [place] KOBI Champion GLYCOSYLA CLINIC SHAMAR A1C PSC COLLECTIO 01076 [facility] N VENOUS 0 CLINIC CLINIC BLOOD LABORATOR LABORATOR VENIPUNCT Y Y URE LIPID 75596 [place] PANEL 0 [facility] COLLECTIO 49331 [place] N VENOUS 0 [facility] VENIPUNCT URE COMPREHEN 98176 [place] SIVE 0 [facility] PANEL OPHTH 27492 [facility], MEDICAL 0 [place] ANG R XM&EVAL CLINIC COMPRHNSV PSC ESTAB PT 1/> LANCETS A4259 LIBERTY LIBERTY PER BOX 0 MEDICAL MEDICAL OF 100 SUPPLY SUPPLY BLD GLU A4253 LIBERTY LIBERTY TEST/REAG 0 MEDICAL MEDICAL T STRIPS SUPPLY SUPPLY HOME BLD GLU MON-50 RADEX 64552 [facility] [place], FOOT 9 RADIOLOGY J COMPLETE MINIMUM 3 VIEWS HEPATIC 25173 [place] FUNCTION 9 [facility] LIPID 85967 [place] PANEL 9 [facility] COLLECTIO 60760 [place] N VENOUS 9 [facility] VENIPUNCT URE BLD GLU A4253 LIBERTY LIBERTY TEST/REAG 9 MEDICAL MEDICAL T STRIPS SUPPLY SUPPLY HOME BLD GLU MON-50 NORMAL A4256 LIBERTY LIBERTY LOW AND 9 MEDICAL MEDICAL HIGH SUPPLY SUPPLY CALIBRATO R SOLUTION/ CHIPS LANCETS A4259 LIBERTY LIBERTY PER BOX 9 MEDICAL MEDICAL OF 100 SUPPLY SUPPLY GLUC BLD 19693 KILEY BAIRES MNTR 9 [facility] Champion DEV CLINIC CLEARED [facility] FDA SPEC HOME USE HEMOGLOBI 76055 MARLENI MILAN N 9 ELO[facility] Champion GLYCOSYLA CLINIC SHAMAR A1C PSC LIPID 22430 [facility] PANEL 9 CLINIC CLINIC LABORATOR LABORATOR Y Y COMPREHEN 34339 [facility] SIVE 9 CLINIC CLINIC METABOLIC LABORATOR LABORATOR PANEL Y Y CREATININ 66588 [place] [facility] SOURCE LABORATOR LABORATOR Y Y COLLECTIO 74806 [facility] N VENOUS 9 CLINIC CLINIC BLOOD LABORATOR [place]OR[place] [address] [facility] THYROID 9 CLINIC CLINIC STIMULATI LABORATOR LABORATOR NG Y Y HORMONE TSH PROTEIN 09289 [facility] TOTAL 9 CLINIC CLINIC XCPT LABORATOR LABORATOR REFRACTOM Y Y ETRY URINE BLD GLU A4253 LIBERTY LIBERTY TEST/REAG 9 MEDICAL MEDICAL T STRIPS SUPPLY SUPPLY HOME BLD GLU MON-50 COLLECTIO 03373 [facility] N VENOUS 9 CLINIC CLINIC BLOOD LABORATOR LABORATOR VENIPUNCT Y Y URE COMPREHEN 58347 [facility] SIVE 9 CLINIC CLINIC METABOLIC LABORATOR LABORATOR PANEL Y Y COMPREHEN 27040 [facility] SIVE 9 CLINIC CLINIC METABOLIC LABORATOR LABORATOR PANEL Y Y COLLECTIO 77913 [facility] N VENOUS 9 CLINIC CLINIC BLOOD LABORATOR LABORATOR VENIPUNCT Y Y URE LIPID 30661 [facility] PANEL 9 CLINIC CLINIC LABORATOR LABORATOR Y Y BILIRUBIN 18326 [facility] DIRECT 9 CLINIC CLINIC LABORATOR LABORATOR Y Y FUNDUS 63307 MARLENI ESTRELLA, PHOTOGRAP 9 [place] ANG R HY CLINIC W/INTERPR PSC ETATION & REPORT SCREENING 02397 [place] FABBY, Elda MEDICAL YUMIKO P MAMMOGRAP IMAGING HY ASSOCIATE BILATERAL S COMPUTER- 93733 [place] FABBY, AIDED 8 MEDICAL YUMIKO P DETECTION IMAGING ASSOCIATE SCREENING S MAMMOGRAP HY BASIC 34399 [facility] METABOLIC 8 CLINIC CLINIC PANEL LABORATOR LABORATOR CALCIUM Y Y TOTAL COLLECTIO 67006 [facility] N VENOUS 8 CLINIC CLINIC BLOOD LABORATOR [...] SPRING-PO A4258 LIBERTY LIBERTY 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 [address] [facility] T OFFICE 64290 NEPHROLOG [facility] 7 7 Y T VISIT ASSOCIATE 25 S OF KAREN MINUTES [facility] [address] [facility] T OFFICE 91731 JACKELYN MICHAEL OUTPATIEN 6 6 AND NATHAN T VISIT MICHAEL, 10 PSC MINUTES OFFICE 73551 [facility] T VISIT MEDICAL 15 GROUP MINUTES OFFICE 86443 [facility] [place] [facility] 6 6 [place] AGUSTINA T VISIT CLINIC P 40 MINUTES OFFICE 46591 JACKELYN MICHAEL OUTPATIEN 6 6 AND NATHAN T VISIT MICHAEL, 15 PSC MINUTES OFFICE 87420 JACKELYN MICHAEL OUTPATIEN 6 6 AND NATHAN T VISIT MICHAEL, 10 PSC MINUTES OFFICE 40288 NEPHROLOG HOLLINS OUTPATIEN 6 6 Y LISSETTE T VISIT ASSOCIATE 25 S OF [facility]EN MIN[facility]ES [facility] [address] [facility] T OFFICE 24642 [facility] [place] [facility] 6 6 [place] AGUSTINA T VISIT CLINIC P 40 MINUTES OFFICE 84985 [facility] [place] [facility] 6 6 [place] AGUSTINA T VISIT CLINIC P 40 MINUTES [facility] [place] [address] [facility] T OFFICE 90483 NEPHROLOG RUPALI OUTPATIEN 5 5 Y LUCITA T VISIT ASSOCIATE 25 S OF KAREN [facility] - [address] [facility] T OFFICE 38721 [place] WAESPE OUTPATIEN 5 5 ORTHOPEDI GERALDO T NEW 30 C MINUTES ASSOCIAT OFFICE 59398 [place] WAES[place] OUTPATIEN 5 5 ORTHOPEDI GERALDO T NEW 30 C MINUTES ASSOCIAT OFFICE 67081 JACKELYN MICHAEL OUTPATIEN 5 5 AND NATHAN T VISIT MICHAEL, 25 PSC MINUTES [facility] [address] [facility] T OFFICE 04261 JACKELYN MICHAEL OUTPATIEN 5 5 AND NATHAN T VISIT MICHAEL, 15 PSC MINUTES OFFICE 92432 [facility] [place] [facility] P 40 MINUTES OFFICE 06401 NEPHROLOG EVA OUTPATIEN 5 5 Y SYE T VISIT ASSOCIATE 25 S OF KAREN [facility] [address] [facility] T OFFICE 86675 [facility] [place] [facility] 5 5 [place] AGUSTINA T VISIT CLINIC P 40 MINUTES OFFICE 58064 NEPHROLOG EVA OUTPATIEN 5 5 Y SYE T VISIT ASSOCIATE 25 S OF KAREN [facility] [place] - [address] [facility] T OFFICE 83215 NEPHROLOG HOLLINS OUTPATIEN 5 5 Y LISSETTE T NEW 60 ASSOCIATE MINUTES S OF [facility] [place] - 5 5 [facility] [place] [facility] [address] [facility] T OFFICE 08307 [facility] [place] [facility] 5 [facility] P 40 MINUTES OFFICE 90433 [facility] OUTPATI[facility] 4 4 [place] THO T VISIT CLINIC 25 PSC MINUTES [facility] [place] - OTHER 4 4 [facility] [address] [facility] T OFFICE 91761 [facility] OUTPATIEN 4 4 [facility] MINUTES OFFICE 14765 [facility] [place] THO T VISIT CLINIC 25 PSC MINUTES OFFICE 75789 [place] DEGNORE OUTPATIEN 3 3 ORTHOPAED LIS T VISIT IC & HAND 15 MINUTES OFFICE 41873 [facility] 3 3 [facility] 25 PSC MINUTES [facility] [place] [facility] [address] [facility] T OFFICE 83300 [place] DEGNORE OUTPATIEN 3 3 ORTHOPAED LIS T VISIT IC & HAND 15 MINUTES [facility] [place] [address] [facility] T OFF[facility] 45557 MICHAEL [facility] 3 3 NATHAN NATHAN T VISIT 25 MINUTES [facility] [place] - 3 3 [facility] [place] [facility] [address] [facility] T OFFICE 72943 [facility] OUTPATIEN 2 2 [place] THO T VISIT CLINIC 25 PSC MINUTES OFFICE 79320 JACKELYN HAYDEN OUTPATIEN 2 2 JAM JAM T VISIT 15 MINUTES [facility] [place] - 2 2 [facility] [place] [facility] [address] [facility] T OFFICE 96436 [place] DEGNORE OUTPATIEN 2 3 ORTHOPAED LIS T NEW 30 IC & HAND MINUTES HOSP[facility] - 2 2 [facility] T OFFICE 82877 MICHAEL MICHAEL OUTPATI 2 2 NATHAN NATHAN T VISIT 15 MINUTES [facility] [place] [facility] [address] [facility] T OFFICE 27286 MICHAEL MICHAEL OUTPATIEN 1 1 NATHAN NATHAN T VISIT 15 MINUTES OFFICE 43423 MICHAEL MICHAEL OUTPATIEN 1 1 NATHAN NATHAN T VISIT 10 MINUTES [facility]OSP[facility] - 0 0 [facility] T OFFICE 53380 [facility] 25 PSC MINUTES [facility] [place] [facility] [address] [facility] T OFF[facility] 93318 [facility] 0 0 ELOISE BALLARDE T VISIT CLINIC 25 PSC MINUTES [facility] [place] [facility] [address] [facility] T OFF[facility] 58098 [facility] 0 0 ELOISE Champion T VISIT CLINIC 25 PSC MINUTES [facility] [place] [address] [facility] T OFF[facility] 84464 [facility] KAYLI OUTPATIEN 9 9 ELOISE Champion T VISIT CLINIC 25 PSC MINUTES [facility] [place] [address] [facility] T OFFICE 62056 MARLENI MILAN OUTPATIEN 9 9 ELOISE Champion T VISIT CLINIC 25 PSC MINUTES OFFICE 96350 [facility] 9 9 [place] T VISIT CLINIC 15 PSC MINUTES OFFICE 20906 [facility] KAYLI OUTRADAMES 9 9 ELOISE Champion T VISIT CLINIC 25 PSC MINUTES OFFICE 05203 ARMAND SANCHEZ 9 9 [place] [facility] 15 [facility] DAV[facility] - 8 8 [facility] OUTPATIEN [facility] T OFFICE [id number] MICHAEL RODRIGUEZ OUTPATIEN 8 8 KIP Isaac T VISIT 10 MINUTES OFFICE [id number] MARLENI ACUNA 8 8 [facility] [facility] 25 [facility] MINUTES OFFICE [id number] RINA FLYNN OUTPATIEN 8 8 MINNIE HARTMAN T [facility] 10 MINUTES
[2016-08-02 18:07] LABS: HEMOGLOBIN 13.6 g/dL (12.2-16.2); LYMPH # 11.6 K/mm3 (0.7-4.5); LYMPH % 70.6 % (10-50.0)
[2016-08-02 18:54] LABS: NEUTROPHILS 35 % (42-76)
[2016-08-02 18:59] VITALS: BP 160/82
== END 2016-08-02 19:00 | disposition home or self-care (01) ==
LOC: ER 16:57
PROVIDERS: Emergency Medicine
DX: E11.22 Type 2 diabetes mellitus with diabetic chronic kidney disease (principal); E11.65 Type 2 diabetes mellitus with hyperglycemia; I12.9 Hypertensive chronic kidney disease with stage 1 through stage 4 chronic kidney disease, or unspecified chronic kidney disease; N18.9 Chronic kidney disease, unspecified